=== PATIENT | male | born 1970 | race Hispanic/Latino ===

== ENCOUNTER 2024-03-04 18:17 | Emergency (ER) | payer OTHER, SELFPAY ==
[2024-03-04 18:20] VITALS: BP 89/49
[2024-03-04 18:26] LABS: Glucose - Point of Care 240 mg/dl (70-99)
[2024-03-04 18:32] VITALS: BP 89/49; BMI 45.5
[2024-03-04 18:34] VITALS: BP 98/47
[2024-03-04 18:44] LABS: % Basophils 0.5 % (0-2); % Eosinophils 1.8 % (0-6); % Immature Granulocytes 0.4 % (0-0.5); % Lymphocytes 3.4 % (20.5-51.1); % Monocytes 6.3 % (1.7-9.3); % Neutrophils 87.6 % (42.2-75.2); Absolute Basophils 0.1 10^3/uL (0-0.2); Absolute Eosinophils 0.3 10^3/uL (0-0.7); Absolute Immature Granulocytes 0.1 10^3/uL (0-0.05); Absolute Lymphocytes 0.5 10^3/uL (1.2-3.4); Absolute Neutrophils 13.7 10^3/uL (1.4-6.5); Hematocrit 28.3 % (39.0-52.0); Hemoglobin 9.2 g/dL (13.0-18.0); Mean Corp Hgb Conc. 32.5 g/dL (33.0-37.0); Mean Corpuscular Hgb 29.8 pg (27.0-31.0); Mean Corpuscular Volume 91.6 fL (80.0-94.0); Mean Platelet Volume 9.3 fL (7.4-10.4); Nucleated Red Blood Cells % 0 % (-); Platelet Count 276 10^3/uL (130-400); Red Blood Cell Count 3.09 10^6/uL (4.70-6.10); Red Cell Dist. Width 14.6 % (11.5-14.5); White Blood Cell Count 15.6 10^3/uL (4.8-10.8)
[2024-03-04 19:07] LABS: ALT (SGPT) 18 U/L (0-50); AST (SGOT) 26 U/L (17-59); Albumin 3.3 g/dl (3.5-5.0); Alkaline Phosphatase 126 U/L (38-126); Blood Urea Nitrogen 46 mg/dl (9-20); Calcium 7.7 mg/dl (8.4-10.2); Carbon Dioxide 22 mmol/L (22-30); Chloride 94 mmol/L (98-107); Estimated Creatinine Clearance 18 ml/min; Glucose 240 mg/dl (70-99); Potassium 3.5 mmol/L (3.5-5.1); Sodium 134 mmol/L (135-145); Total Bilirubin 0.8 mg/dl (0.2-1.3); Total Protein 6.9 g/dl (6.3-8.2); eGFR 8.75
[2024-03-04 19:11] VITALS: BP 128/51
--- NOTE | 2024-03-04 19:12 | ED.GENMED ---
History of Present Illness
General
Chief Complaint: Fainting/Passed Out
Source: patient and other (RN Lynn Allen)
Time Seen by Provider: 03/04/24 18:47
Travel History
Have you had any contact with someone who has COVID-19?: No
Do you have any symptoms of coronavirus? Fever > 100 degrees, chills, cough, shortness of breath, sore throat, loss of taste or smell, muscle aches, or headache?: No
History of Present Illness
History of Present Illness:
This patient is a 53-year-old male who presents emergency department after reported syncopal event. According to the RN he spoke to the medics as well as Lynn Addison his nurse, a another resident witnessed patient to be in the dining moralez and had an
episodes where his eyes rolled back and he became limp. There was no specific seizure-like activity reported. Lynn Allen had difficulty getting a blood pressure or pulse ox. Upon EMS arrival, blood pressure was reportedly 70 systolic with a pulse ox
of 85% and a blood sugar 303. Patient regained consciousness without postictal like symptoms. Blood pressure now normalized. Patient denies any preceding symptoms to this event, says he felt perfectly well before it happens, and denies any
complaints at this time. Lynn Denny confirms that his clinical status was baseline and unchanged prior to this event. Patient specifically denies chest pain, shortness of breath, fever, chills, back pain, headache. He does have right arm pain from
the level of the elbow extending to the hand which is chronic in nature.
Past History
Past History
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
ED Past Surgical History: Orthopedic (Right below the knee amp, Left second toe amputation) and Other (Trach, PEG tube but removed)
Social History
Tobacco: Non-smoker
Alcohol: None
Drug: None
Personal: Partner
Living: halfway
Phy Exam
Physical Exam
Physical Exam:
GENERAL: Alert , in no apparent distress
EYE: pupils equal and reactive
NECK: Supple, no significant adenopathy.
ENT: o/p clr, mmm, trach in place without bleeding/drainage.
CARDIAC: Regular rate and rhythm .
LUNGS: Equal breath sounds bilaterally, no acute respiratory distress, no rales/rhonchi, mild wheezing
ABDOMEN: Soft, without focal tenderness, no r/g
NEUROLOGICAL: Alert and oriented, no focal neuro deficits
SKIN: Warm and dry, skin intact. R middle finger with area of dried st exposed, no drainage/crepitus/fluctuance/foul smell. Swelling of finger extending to R hand. No warmth. No ttp of flexor tendon. Held in partial flexion due to swelling
MUSCULOSKELETAL: R bka, L leg in boot, overall well perfused.
PSYCH: Normal and appropriate interaction.
Course
Orders/Labs/Results
Orders:
Orders
03/04/24 18:27
Electrocardiogram (*1) Urgent
Reason for Study: Syncope
03/04/24 18:28
EKG- Treatment ONCE
03/04/24 18:40
Complete Blood Count/With Diff Urgent
Comprehensive Metabolic Panel Urgent
03/04/24 19:15
US Periph Venous UPPER Ext RT Urgent
Comment:
Reason For Exam: swelling
03/04/24 19:20
Troponin I Urgent
03/04/24 21:56
Troponin I Urgent
Abnormal Lab Results
03/04/24 03/04/24
18:25 18:40
WBC 15.6 H 10^3/uL
(4.8-10.8)
RBC 3.09 L 10^6/uL
(4.70-6.10)
Hgb 9.2 L g/dL
(13.0-18.0)
Hct 28.3 L %
(39.0-52.0)
MCHC 32.5 L g/dL
(33.0-37.0)
RDW 14.6 H %
(11.5-14.5)
Abs Immat Gran (auto) 0.1 H 10^3/uL
(0-0.05)
Absolute Neuts (auto) 13.7 H 10^3/uL
(1.4-6.5)
Absolute Lymphs (auto) 0.5 L 10^3/uL
(1.2-3.4)
Absolute Monos (auto) 1.0 H 10^3/uL
(0.1-0.6)
Neutrophils % 87.6 H %
(42.2-75.2)
Lymphocytes % 3.4 L %
(20.5-51.1)
Sodium 134 L mmol/L
(135-145)
Chloride 94 L mmol/L
(98-107)
BUN 46 H mg/dl
(9-20)
Creatinine 6.9 H* mg/dL
(0.7-1.3)
Glucose 240 H mg/dl
(70-99)
Calcium 7.7 L mg/dl
(8.4-10.2)
Albumin 3.3 L g/dl
(3.5-5.0)
POC Glucose 240 H mg/dl
(70-99)
03/04/24 18:40
03/04/24 18:40
Vital Signs
Initial and Last Documented VS:
Initial Vital Signs
BP
89/49
03/04/24 18:20
Last Documented Vital Signs
Temp Pulse Resp BP Pulse Ox
98.5 F 75 17 98/40 92
03/04/24 18:32 03/04/24 22:00 03/04/24 22:00 03/04/24 20:00 03/04/24 22:00
Update Note
Update Note:
Patient presents to the Emergency Department with ___reported syncopal event
Number and Complexity of Problems Addressed at the Encounter
� Chronic conditions affecting care:
� Acute Exacerbation and/or Progression of Chronic Illness:
� Differential Diagnosis includes: But not limited to vasovagal event, ACS, mucous plug, dehydration, etc. etc.
Amount and/or Complexity of Data to be Reviewed and Analyzed
� I performed an independent evaluation of and my interpretation is:
EKG: Read by me, normal sinus rhythm, right bundle, no acute ischemia
CT:
Xrays:
Laboratory Studies: Nonspecific white blood cell count elevation with slightly worsening anemia, troponin flat
Other:
� Review of other/old records reveals: Patient admitted October 2023 with suspicion for GI bleeding, GI consulted, Eliquis essentially resumed.
� Clinical information was obtained by an independent historian:
� Prescriptions/Medications Considered but not given:
� Further testing considered but not performed:
Risk of Complications and/or Morbidity or Mortality of Patient Management
� Social determinants of health affecting care:
� Discussion with other providers (PCP, Hospitalists, Consultants, etc):
� Escalation of care including admission/observation vs risk of discharge considered: 10:29 PM patient resting comfortably. Has been asking nurse when he can go back to facility as he remains asymptomatic here. Unclear exact
etiology of his reported syncopal events however no worrisome findings here to suggest ACS, PE, dissection, etc. May have been related to a mucous plug given nurse did successfully suction here. Pulse ox remains stable, will allow patient to
return to facility.
ED Attending Note
-
Portions of this chart may have been created with voice recognition software.� Occasional wrong word or��sound alike� substitutions may have occurred due to the inherent limitations of voice recognition software.
Discharge Plan
Departure
Patient Disposition: Home (Routine Discharge)
Date of Disposition: 03/04/24
Time of Disposition: 22:30
Patient with high blood pressure during this ER visit?: No
Condition: Good
Discharge Problem:
Syncope
Instructions: Syncope (Fainting) (DC)
Prescriptions:
No Action
atorvastatin 40 mg Tablet
60 mg PO QPM
lidocaine 5 % Cream
1 applic TOPICAL Q8HPRN PRN (Reason: AVF site)
acetaminophen 500 mg Tablet
500 mg PO Q6HPRN MDD 3000 mg PRN (Reason: mild pain/headaches)
carvedilol 3.125 mg Tablet
3.125 mg PO BID
Patient Comments:
03/04/2024, hold for SBP less than 110 or HR less than 50.
levothyroxine 75 mcg Tablet
75 mcg PO DAILY
ascorbic acid (vitamin C) [Vitamin C] 250 mg Tablet
250 mg PO DAILY
bisacodyl [Dulcolax (bisacodyl)] 10 mg Suppository
10 mg FL DAILYPRN PRN (Reason: constipation)
pantoprazole 40 mg Tablet,Delayed Release (Dr/Ec)
40 mg PO DAILY
diphenhydramine HCl 25 mg Capsule
25 mg PO Q8HPRN PRN (Reason: allergies)
docusate sodium 100 mg Capsule
100 mg PO BID
aspirin 81 mg Tablet,Chewable
81 mg PO DAILY
hydroxyzine HCl 25 mg Tablet
25 mg PO [id number] PRN (Reason: itching)
Renal Caps 1 mg Capsule
1 cap PO QPM
sorbitol 70 % Solution
30 ml PO DAILYPRN PRN (Reason: if no BM x 3 days)
chlorhexidine gluconate [Peridex] 0.12 % Mouthwash
15 ml MUCOUS MEMBRANE BID
Patient Comments:
03/04/2024, rinse/spit.
insulin glargine [Lantus Solostar U-100 Insulin] 100 unit/mL (3 mL) Insulin Pen
21 unit SC HS
Patient Comments:
03/04/2024, hold for BS<100.
melatonin 5 mg Tablet
5 mg PO HS
icosapent ethyl [Vascepa] 1 gram Capsule
2 g PO BID
apixaban 2.5 mg Tablet
2.5 mg PO BID
polyethylene glycol 3350 [Miralax] 17 gram Powder In Packet
17 g PO DAILY
acetaminophen 325 mg Tablet
650 mg PO Q6HPRN MDD 3000 mg PRN (Reason: mild pain/temp>100.4)
midodrine 2.5 mg Tablet
2.5 mg PO Q12H PRN (Reason: sbp<90)
fluoxetine 40 mg Capsule
40 mg PO DAILY
Rx Instructions:
03/04/2024, take with 10 mg for a total of 50 mg.
latanoprost 0.005 % Drops
1 drp LEFT EYE HS
bupropion HCl [Wellbutrin SR] 100 mg Tablet Sustained-Release 12 Hr
100 mg PO Q48H
lorazepam 0.5 mg Tablet
0.5 mg PO BID
insulin aspart U-100 [Novolog U-100 Insulin aspart] 100 unit/mL Solution
0 sliding scale dose SC DIRECTED
Rx Instructions:
03/04/2024, if 151-200 = 2 units; 201-250 = 4 units; 251-300 = 6 units; 301-350 = 8 units; 351-400 = (does not specify on [place] paperwork); call MD if BS>450 or <70.
ferrous sulfate 325 mg (65 mg iron) Tablet
325 mg PO DAILY
fluoxetine 10 mg Capsule
10 mg PO DAILY
Rx Instructions:
03/04/2024, take with 40 mg for a total of 50 mg.
guaifenesin 100 mg/5 mL Syrup
200 mg PO Q4H PRN (Reason: congestion)
Artificial Tears (PF) Dropperette
1 drp BOTH EYES Q8HPRN PRN (Reason: dry eyes)
Referrals:
Galdino Hurley, DO [Family Provider] -
Activity Restrictions/Additional Instructions:
IF YOU DEVELOP CHEST PAIN, TROUBLE BREATHING, FEVER, VOMITING, DIZZINESS, OR OTHER WORRISOME SIGNS, GO TO THE ER IMMEDIATELy!
Interventions
Interventions:
*Risk Screen - Suicide Last Done: 03/04/24 18:32
*General Assessment Last Done: 03/04/24 18:32
*Neglect/Abuse Screening Last Done: 03/04/24 18:32
ED- Fall Risk Assessment Last Done: 03/04/24 19:23
*ED COVID-19 Vaccine History Last Done: 03/04/24 18:32
ED- Cardiac Assessment Last Done: 03/04/24 19:23
ED- Neurological Assessment Last Done: 03/04/24 19:23
Discharge Date and Time
Print Language: CAMEROONIAN
--- NOTE | 2024-03-04 19:32 | EDRN ---
Pt said 'I was eating then opened my eyes and I was here.' Pt complains of pain R elbow to his R hand. Pt says he injured his R 3rd finger while closing a door 2 weeks ago and he continues to have pain. Pt has an inactive dialysis catheter R
upper arm. Pt confirmed he gets dialysis M-W- in his L arm dialysis catheter. Pt does not make urine. Pt denies headache, cp, sob, abd pain, n/v, fever/chills.
[2024-03-04 19:55] LABS: Troponin I 0.019 ng/ml
[2024-03-04 20:00] VITALS: BP 98/40
[2024-03-04 22:00] VITALS: BP 97/42
[2024-03-04 22:26] LABS: Troponin I 0.023 ng/ml
[2024-03-05] VITALS: BP 108/54
--- NOTE | 2024-03-05 00:06 | EDRN ---
Report called to Suzanne at [facility] - d/c instructions were printed in slovak by Dr Alcala. This RN printed them in australian also.
--- NOTE | 2024-03-05 02:55 | EDRN ---
0253: Pt slept through IV removals and moving him over to Romed stretcher. Pt's cell phone placed in belongings bag along with coverings from pt's stump. Emergency trach kit that was sent with pt returned with pt. Pt's prosthesis placed on
stretcher by EMT.
== END 2024-03-05 02:53 | disposition home or self-care (01) ==
LOC: EMR 18:17
PROVIDERS: EMERGENCY PHYSICIAN Emergency Medicine; FAMILY PHYSICIAN Internal Medicine
DX: R55 Syncope and collapse (principal); M25.521 Pain in right elbow; M25.541 Pain in joints of right hand; M79.89 Other specified soft tissue disorders; I12.0 Hypertensive chronic kidney disease with stage 5 chronic kidney disease or end stage renal disease; N18.6 End stage renal disease; Z99.2 Dependence on renal dialysis; E11.22 Type 2 diabetes mellitus with diabetic chronic kidney disease; K21.9 Gastro-esophageal reflux disease without esophagitis; E03.9 Hypothyroidism, unspecified; F32.A Depression, unspecified; H54.7 Unspecified visual loss; Z86.73 Personal history of transient ischemic attack (TIA), and cerebral infarction without residual deficits; Z79.82 Long term (current) use of aspirin; Z89.511 Acquired absence of right leg below knee; Z88.5 Allergy status to narcotic agent; Z88.0 Allergy status to penicillin; Z88.7 Allergy status to serum and vaccine; Z88.8 Allergy status to other drugs, medicaments and biological substances
CPT/HCPCS: 99285; 80053; 82962; 84484; 85025; 93005; 93971

== ENCOUNTER 2024-03-05 21:16 | Inpatient (IN) | payer OTHER, SELFPAY ==
[2024-03-05] VITALS (13 sets, daily range): BP systolic 56–114; BP diastolic 25–69; BMI 43.7; BMI 41.8
[2024-03-05 17:57] LABS: Glucose - Point of Care 179 mg/dl (70-99)
--- NOTE | 2024-03-05 18:19 | ED.GENMED ---
History of Present Illness
General
Chief Complaint: Fall
Source: patient, records, previous radiology exam and previous hospital records
Exam Limitations: none
Time Seen by Provider: 03/05/24 17:58
Nursing documentation reviewed up to this point in time: agreed with except (Patient denies chest pain to me)
Travel History
Have you had any contact with someone who has COVID-19?: Unable to Answer
Do you have any symptoms of coronavirus? Fever > 100 degrees, chills, cough, shortness of breath, sore throat, loss of taste or smell, muscle aches, or headache?: Unable to Answer
History of Present Illness
History of Present Illness:
53-year-old male apparently was here yesterday for evaluation he has end-stage renal disease, dialyzed Tuesday, went to dialysis today slumped in his chair, brought here for evaluation when I evaluated the patient he is lying supine
speaking on his cell phone in no acute distress tells me he has a headache he possibly struck his head yesterday he denies chest pain this is a correction from the nurses note denies fever denies shortness of breath shows me his dialysis graft in
his left arm which was used today
Yesterday apparently had an interosseous line with a syncopal event and was ultimately discharged home
Past History
Past History
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
ED Past Surgical History: Orthopedic (Right below the knee amp, Left second toe amputation) and Other (Trach, PEG tube but removed)
Social History
Tobacco: Non-smoker
Alcohol: None
Drug: None
Personal: Partner
Living: intermediate
Phy Exam
Physical Exam
Physical Exam:
Physical Exam
General: Nontoxic male speaking on a soft
Neck: No tongue bite
Heart: Regular
Lungs: no acute respiratory distress. clear bilaterally
Neuro: alert and oriented. no focal neurological deficits
Skin: no rash
Psychiatric: well kept. interactive and cooperative
Extremities: no edema.
Course
Orders/Labs/Results
Orders:
Orders
03/05/24 Dinner
Regular
At Your Request: Full Participation
03/05/24 17:40
Electrocardiogram (*1) Urgent
Reason for Study: Other
Other Reason for Exam: dizziness
EKG- Treatment ONCE
03/05/24 18:12
Cardiac Monitoring- Treatment ONCE
Rectal Temp- Treatment ONCE
CR Chest - 2 Views Urgent
Comment:
Reason For Exam: fall
03/05/24 18:13
CT Cervical Spine W/o Iv Contr Urgent
Comment:
Reason For Exam: fall
CT Head W/o Iv Contrast Urgent
Comment:
Reason For Exam: fall headache
03/05/24 18:46
Electrocardiogram (*1) Urgent
Reason for Study: Other
Other Reason for Exam: sepsis
Acetaminophen [Tylenol] 1,000 mg PO NOW STA
03/05/24 18:49
Complete Blood Count/No Diff Urgent
Comprehensive Metabolic Panel Urgent
Troponin I Urgent
Blood Culture Q30M
DULCE Source: Blood/Venous
Specimen Description:
Blood Culture Q30M
DULCE Source: Blood/Venous
Specimen Description:
03/05/24 18:50
COVID-19 Antigen Urgent
Source: Nasal Swab
Lactic Acid Q4H
Comment: CANCEL 2nd LACTIC ACID IF 1st LACTIC ACID IS LESS THAN 2
Influenza A+B Rapid Molecular Urgent
DULCE Source: Nasal Swab
Specimen Description:
03/05/24 19:20
0.9% Sodium Chloride 1000 ml [Nss] 1,000 ml IV BOLUS
03/05/24 20:00
VANCOMYCIN Pharmacy to Dose [VANCOCIN Pharmacy to Dose] 1 each Pharmacy To Prepare [Call Pharmacy To Prepare] 0 ml IV PER PROTOCOL
03/05/24 20:42
Admit/Transfer Patient As Directed
Co-Sign Provider:
Level of Care: Inpatient admission
Assign to:: IMU- Intermediate Care
Physician / Group: ziggy
Diagnosis: sepsis
Reason for Hospitalization: sepsis
Expected length of stay greater than two midnights?: Yes
ELOS- Estimated Length of Stay in days: 2
I certify the patient meets the requirements for IP care: Yes
Code Status As Directed
Resuscitation Status: Full Code
03/05/24 20:49
0.9% Sodium Chloride 500 ml [Nss] 500 ml IV BOLUS
03/05/24 20:50
Potassium Chloride [KCl] 40 meq PO NOW STA
03/05/24 22:08
Acetaminophen [Tylenol] 500 mg PO Q6HPRN PRN
Acetaminophen [Tylenol] 650 mg PO Q6HPRN PRN
Bisacodyl [Dulcolax] 10 mg RECTAL DAILYPRN PRN
Cefepime HCl [Maxipime] 1,000 mg IV Q12H
Dextrose 50%-Water [Dextrose 50% Syringe] 12.5 grams IV [id number] PRN
Diphenhydramine [Benadryl] 25 mg PO Q8HPRN PRN
Glucagon [GlucaGen] 1 mg IM PRN PRN
HydrOXYZINE [Atarax] 25 mg PO [id number] PRN
Latanoprost [Xalatan Ophthalmic Solution] 1 drop LEFT EYE HS
Melatonin 5 mg PO HS
Sorbitol Solution [Sorbitol 70% Solution] 30 ml PO DAILYPRN PRN
VANCOMYCIN Pharmacy to Dose [VANCOCIN Pharmacy to Dose] 1 each Pharmacy To Prepare [Call Pharmacy To Prepare] 0 ml IV PER PROTOCOL
dextran 70-hypromellose [Artificial Tears (PF)] 1 drop BOTH EYES Q8HPRN PRN
guaifenesin 200 mg PO Q4H PRN
insulin glargine [Lantus Solostar U-100 Insulin] 21 unit SC HS
lidocaine 1 applic TOPICAL Q8HPRN PRN
03/05/24 22:08
VTE Contraindication Routine
VTE Mechanical Device Contraindication: Medical Contraindication
Pharmocologic Contraindication: Medical Contraindication
Activity As Directed
Activity Level: As Tolerated
Bedside Glucose Monitoring As Directed
Frequency: AC&HS
Additional Instructions:: Change to q6h if pt on TPN, tube feeding or not eating
Vital Signs As Directed
Frequency: Per unit guidelines
03/05/24 22:13
Midodrine [ProAmatine] 2.5 mg PO [id number] PRN
03/05/24 23:00
Lactic Acid Q4H
Comment: CANCEL 2nd LACTIC ACID IF 1st LACTIC ACID IS LESS THAN 2
03/06/24 06:00
Complete Blood Count/With Diff IN AM
Comprehensive Metabolic Panel IN AM
Glycohemoglobin (HgbA1c) IN AM
Levothyroxine [Synthroid] 75 mcg PO DAILY @ 0600
03/06/24 07:30
Insulin Aspart Corrective Low [Novolog Flexpen-Low Resistance] See Protocol SC AC
03/06/24 08:00
Apixaban [Eliquis] 2.5 mg PO BID
Ascorbic Acid [Vitamin C] 250 mg PO DAILY
Aspirin Chewable [Low Strength Aspirin] 81 mg PO DAILY
Bupropion(12Hr)Sustain Release [WELLBUTRIN SR (12 hour sustained release)] 100 mg PO Q48H
Chlorhexidine Oral Rinse 0.12% [Peridex 0.12% Oral Rinse] 15 ml PO BID
Docusate Sodium [Colace] 100 mg PO BID
Ferrous Sulfate [Feosol] 325 mg PO DAILY
Fluoxetine HCl [Prozac] 10 mg PO DAILY
Lorazepam [Ativan] 0.5 mg PO BID
Pantoprazole [Protonix] 40 mg PO DAILY
Polyethylene Glycol Powder [Miralax] 17 grams PO DAILY
fluoxetine 40 mg PO DAILY
icosapent ethyl [Vascepa] 2 grams PO BID
03/06/24 18:00
Atorvastatin [Lipitor] 60 mg PO QPM
Renal Cap [Nephrocap] 1 capsule PO QPM
Abnormal Lab Results
03/05/24 03/05/24
17:55 18:49
WBC 17.4 H 10^3/uL
(4.8-10.8)
RBC 3.15 L 10^6/uL
(4.70-6.10)
Hgb 9.5 L g/dL
(13.0-18.0)
Hct 29.6 L %
(39.0-52.0)
MCHC 32.1 L g/dL
(33.0-37.0)
RDW 14.6 H %
(11.5-14.5)
Potassium 3.3 L mmol/L
(3.5-5.1)
Chloride 93 L mmol/L
(98-107)
BUN 29 H mg/dl
(9-20)
Creatinine 4.9 H* mg/dL
(0.7-1.3)
Glucose 188 H mg/dl
(70-99)
Alkaline Phosphatase 140 H U/L
(38-126)
POC Glucose 179 H mg/dl
(70-99)
03/05/24 18:49
03/05/24 18:49
Vital Signs
Initial and Last Documented VS:
Initial Vital Signs
Pulse Resp
87 16
03/05/24 17:37 03/05/24 17:37
Last Documented Vital Signs
Temp Pulse Resp BP
101.6 F H 79 18 61/31
03/05/24 18:35 03/05/24 21:15 03/05/24 21:15 03/05/24 21:00
*Critical Care Note
Total Time (30-74mins, 75-104mins- exclusive of procedures): 30
Update Note
Update Note:
7 PM white count noted be febrile chest x-ray viral swabs are pending CT of the head is pending
754 CT of the head C-spine chest x-ray reports noted transient low blood pressure in the setting of fever unclear if this represented a central blood pressure of abdominal on his arm peripherally there is risk, nonetheless this is second visit here
he is febrile possibly has syncope yesterday and today, believe will be prudent to start antibiotics and admit him as high risk for bacteremia is in end-stage renal disease patient
ED Attending Note
-
Portions of this chart may have been created with voice recognition software.� Occasional wrong word or��sound alike� substitutions may have occurred due to the inherent limitations of voice recognition software.
Discharge Plan
Departure
Patient Disposition: Admit
Date of Disposition: 03/05/24
Time of Disposition: 19:55
Admit to: Telemetry
Presentation/result/management discussed w/ accepting MD/DO: Hospitalist
Patient with high blood pressure during this ER visit?: No
Condition: Fair
Covid-19: Negative COVID-19
Discharge Problem:
Bacteremia
Interventions
Interventions:
*Risk Screen - Suicide Last Done: 03/05/24 17:52
*General Assessment Last Done: 03/05/24 17:52
*Neglect/Abuse Screening Last Done: 03/05/24 17:52
ED- Fall Risk Assessment Last Done: 03/05/24 22:18
*ED COVID-19 Vaccine History Last Done: 03/05/24 17:33
*Nursing Disposition Last Done: 03/05/24 22:18
ED-Musculoskeletal Assessment Last Done: 03/05/24 22:18
ED- Neurological Assessment Last Done: 03/05/24 17:41
Discharge Date and Time
Discharge Date/Time: 03/05/24 22:19
[2024-03-05] MEDS: TYLENOL 1000 MG PO (18:56)
[2024-03-05 18:59] LABS: Hematocrit 29.6 % (39.0-52.0); Hemoglobin 9.5 g/dL (13.0-18.0); Mean Corp Hgb Conc. 32.1 g/dL (33.0-37.0); Mean Corpuscular Hgb 30.2 pg (27.0-31.0); Mean Platelet Volume 9.7 fL (7.4-10.4); Platelet Count 275 10^3/uL (130-400); Red Blood Cell Count 3.15 10^6/uL (4.70-6.10); Red Cell Dist. Width 14.6 % (11.5-14.5); White Blood Cell Count 17.4 10^3/uL (4.8-10.8)
[2024-03-05 19:10] LABS: Lactic Acid 1.9 mmol/L (0.7-2.0)
[2024-03-05 19:19] LABS: ALT (SGPT) 18 U/L (0-50); AST (SGOT) 24 U/L (17-59); Albumin 3.5 g/dl (3.5-5.0); Alkaline Phosphatase 140 U/L (38-126); Blood Urea Nitrogen 29 mg/dl (9-20); Calcium 8.4 mg/dl (8.4-10.2); Carbon Dioxide 25 mmol/L (22-30); Chloride 93 mmol/L (98-107); Estimated Creatinine Clearance 25 ml/min; Glucose 188 mg/dl (70-99); Potassium 3.3 mmol/L (3.5-5.1); Sodium 136 mmol/L (135-145); Total Bilirubin 0.9 mg/dl (0.2-1.3); Total Protein 7.5 g/dl (6.3-8.2)
[2024-03-05 19:22] LABS: Troponin I 0.028 ng/ml
[2024-03-05 19:22] LABS: COVID-19 Antigen Negative (Negative)
[2024-03-05] MEDS: NSS 1000 IV (20:12)
--- NOTE | 2024-03-05 20:42 | EDRN ---
Blood pressure readings are low for this patient, Dr. June aware. Unsure if these reading are accurate. Patient is mentating well. Only able to use right lower forearm below the IV site for blood pressure readings.
--- NOTE | 2024-03-05 20:51 | HPS.HSE ---
Family Physician
-
Family Physician: Galdino Hurley, DO
Chief Complaint
-
syncope,weakness
History of Present Illness
53-year-old male past medical history of ESRD on hemodialysis Tuesday, Tuesday, Tuesday, diabetes, PAD status post right BKA, hypertension, GERD, prior cardiac arrest, prior PEG tube, obstructive sleep apnea, DVT, hypothyroidism, insomnia,
depression, obesity, chronic constipation, chronic anemia, presenting for fall. Patient went to dialysis today and slumped in his chair and was brought here for evaluation. Patient complains of headache because he possibly struck his head
yesterday. He denied fever, shortness of breath
He came to the emergency room yesterday for syncopal episode. While in the jail he had an episode where his eyes rolled back and he became limp. No specific seizure-like activity reported. Blood pressure was 70 systolic with pulse ox of
85% blood sugar 303. Patient regained consciousness without postictal symptoms. As per documentation patient also complained of chest pain at the facility however he denies any chest pain currently.
Patient states that he does not make urine. He denies any shortness of breath or cough or chest pain. He denies any nausea vomiting or diarrhea. He denies any history of swallowing dysfunction
He states that 2 weeks ago he jammed his finger in a locker and the nail came off and he has significant pain.
He denies smoking or alcohol use.
Medical History
Past Medical History
Past Medical History: Reports Other (ESRD on hemodialysis Tuesday, Tuesday, Tuesday, diabetes, PAD status post right BKA, hypertension, GERD, prior cardiac arrest tracheostomy, prior PEG tube, obstructive sleep apnea, DVT, hypothyroidism, insomnia,
depression, obesity, chronic constipation, chronic anemia)
Past Surgical History: Reports Other (Left upper extremity AV fistula, prior tracheostomy 2022 , PEG tube insertion May 2023,History right BKA, left second toe removal secondary to gangrene))
Social History
Tobacco: Non-smoker
Alcohol: None
Drug: None
Family History
Family History: Not pertinent
Allergies / Home Medications
Allergies reflects when Allergies were last updated in [employer].
Home Medications with original date entered in [employer]
Allergy/Medication List:
Allergies
Allergy/AdvReac Type Severity Reaction Status Date / Time
iodine Allergy Unknown Verified 03/05/24 17:49
morphine Allergy Unknown Verified 03/05/24 17:49
Penicillins Allergy Unknown Verified 03/05/24 17:49
tetanus and diphtheria Allergy Unknown Verified 03/05/24 17:49
toxoids
Home Medications
acetaminophen 500 mg tablet 500 mg PO Q6HPRN PRN mild pain/headaches 07/22/23
apixaban 2.5 mg tablet 2.5 mg PO BID Blood Clot Prevention/Tx 07/22/23
ascorbic acid (vitamin C) 250 mg tablet (Vitamin C) 250 mg PO DAILY Supplement 07/22/23
aspirin 81 mg chewable tablet 81 mg PO DAILY Blood Clot Prevention/Tx 07/22/23
atorvastatin 40 mg tablet 60 mg PO QPM High Cholesterol 07/22/23
bisacodyl 10 mg rectal suppository (Dulcolax (bisacodyl)) 10 mg [place] DAILYPRN PRN constipation 07/22/23
carvedilol 3.125 mg tablet 3.125 mg PO BID Heart Disease/Condition 07/22/23
chlorhexidine gluconate 0.12 % mouthwash (Peridex) 15 ml mucous membrane BID Infection 07/22/23
diphenhydramine HCl 25 mg capsule 25 mg PO Q8HPRN PRN allergies 07/22/23
docusate sodium 100 mg capsule 100 mg PO BID Constipation 07/22/23
hydroxyzine HCl 25 mg tablet 25 mg PO [id number] PRN itching 07/22/23
icosapent ethyl 1 gram capsule (Vascepa) 2 g PO BID Heart Disease/Condition 07/22/23
insulin glargine 100 unit/mL (3 mL) subcutaneous pen (Lantus Solostar U-100 Insulin) 21 unit SC HS Diabetes 07/22/23
levothyroxine 75 mcg tablet 75 mcg PO DAILY Thyroid 07/22/23
lidocaine 5 % topical cream 1 applic topical Q8HPRN PRN AVF site 07/22/23
melatonin 5 mg tablet 5 mg PO HS Sleep 07/22/23
pantoprazole 40 mg tablet,delayed release 40 mg PO DAILY Gastrointestinal Issue 07/22/23
sorbitol 70 % solution 30 ml PO DAILYPRN PRN if no BM x 3 days 07/22/23
vitamin B complex and vitamin C no.20-folic acid 1 mg capsule (Renal Caps) 1 cap PO QPM Supplement 07/22/23
polyethylene glycol 3350 17 gram oral powder packet (Miralax) 17 g PO DAILY constipation 09/21/23
acetaminophen 325 mg tablet 650 mg PO Q6HPRN PRN mild pain/temp>100.4 11/02/23
midodrine 2.5 mg tablet 2.5 mg PO Q12H PRN sbp<90 11/05/23
bupropion HCl 100 mg tablet,12 hr sustained-release (Wellbutrin SR) 100 mg PO Q48H 03/04/24
dextran 70-hypromellose eye drops in a dropperette (Artificial Tears (PF) drops in a dropperette) 1 drp BOTH EYES Q8HPRN PRN dry eyes 03/04/24
ferrous sulfate 325 mg (65 mg iron) tablet 325 mg PO DAILY 03/04/24
fluoxetine 10 mg capsule 10 mg PO DAILY 03/04/24
fluoxetine 40 mg capsule 40 mg PO DAILY 03/04/24
guaifenesin 100 mg/5 mL oral syrup 200 mg PO Q4H PRN congestion 03/04/24
insulin aspart U-100 100 unit/mL subcutaneous solution (Novolog U-100 Insulin aspart) 0 sliding scale dose SC DIRECTED 03/04/24
latanoprost 0.005 % eye drops 1 drp LEFT EYE HS 03/04/24
lorazepam 0.5 mg tablet 0.5 mg PO BID 03/04/24
Review of Systems
-
History Source: Patient
A 12 point ROS was completed and negative except as noted: Yes
Constitutional: Reports No Symptoms
EENT: Reports No Symptoms
Respiratory: Reports No Symptoms
Cardiac: Reports No Symptoms
Abdomen/GI: Reports No Symptoms
: Reports No Symptoms
Musculoskeletal: Reports No Symptoms
Skin: Reports No Symptoms
Neurological: Reports See HPI
Endocrine: Reports No Symptoms
Hematologic/Lymphatic: Reports No Symptoms
Psych: Reports No Symptoms
Physical Exam
Vital Signs
Vital Signs
Temp Pulse Resp BP
101.6 F H 82 15 60/32
03/05/24 18:35 03/05/24 20:31 03/05/24 20:31 03/05/24 20:31
Physical Exam
General: Well Developed, Well Nourished and No Apparent Distress
HEENT: NormoCephalic, Moist mucous membranes and Atraumatic
Respiratory: Clear
Cardiac: S1/S2 and Regular Rhythm; No Murmur or Rub
GI: Soft, Non Tender, Non Distended and Normal Bowel Sounds; No Organomegaly
Rectal: Deferred by Provider
Musculoskeletal: No Clubbing, No Cyanosis and No Edema
Skin: No Rash
Neuro: Nonfocal/grossly intact
Laboratory Results
-
03/05/24 18:49
03/05/24 18:49
Laboratory Results
Lactic Acid 1.9 mmol/L (0.7-2.0) 03/05/24 18:50
Total Bilirubin 0.9 mg/dl (0.2-1.3) 03/05/24 18:49
AST 24 U/L (17-59) 03/05/24 18:49
ALT 18 U/L (0-50) 03/05/24 18:49
Alkaline Phosphatase 140 U/L (38-126) H 03/05/24 18:49
Troponin I 0.028 ng/ml 03/05/24 18:49
Data Reviewed
-
Lab Data: Labs Reviewed by me
Old Records: Reviewed
Impression/Plan
-
IMPRESSION:
PLAN:
# Sepsis (fever, leukocytosis, hypotension) unclear source likely due to right third finger paronychia,
# Paronychia of right third finger due to injury
-COVID and influenza negative
-Chest x-ray negative
-Check blood cultures
-IV fluid bolus
-Vancomycin/cefepime
-Hold Coreg
# Syncopal episode yesterday secondary to hypotension/sepsis
-CT head and C-spine shows no acute abnormalities
# Hypokalemia
-Replete potassium
ESRD on hemodialysis Tuesday, Tuesday, Tuesday
-Continue midodrine
-Nephrology consulted
Type 2 diabetes
-Continue Lantus 21 units
-insulin sliding scale
PAD status post right BKA
-Continue aspirin, statin
Hyperlipidemia
-Continue Vascepa
Essential hypertension
-Hold Coreg due to hypotension
GERD
-Continue Protonix
History of prior cardiac arrest
Current tracheostomy
Prior PEG tube
Obstructive sleep apnea
History of DVT
-Continue Eliquis
Hypothyroidism
-Continue levothyroxine
Anxiety/depression
-Continue bupropion, fluoxetine, Ativan
Insomnia
Obesity
Chronic anemia
-Continue iron sulfate
Chronic constipation
-Continue bowel regimen
Full code
DVT prophylaxis�Eliquis
Regular diet
[2024-03-05] MEDS: NSS 500 IV (21:24)
[2024-03-05] MEDS: KCL 40 MEQ PO (21:24)
--- NOTE | 2024-03-05 22:51 | PTCARENOTE ---
Pt receives dialysis MWF. Pt had dialysis today. Pt is AAO. Pt had softer pressures in the ED. Per ED RN, pressures are not believed to be accurate. Pt asymptomatic. No c/o light headedness, changes in vision, changes in mentation Pt received to
unit. Pts blood pressure cuff moved to left calf and pressures reading of 114/49. BUREAU CHIEF made aware of assessment findings.
--- NOTE | 2024-03-05 22:56 | PHA.VAN.IN ---
Assessment
- Assessment
Renal Function: Patient has ESRD, on chronic Hemodialysis
Hemodialysis Schedule: MWF
Concomitant Antimicrobials: CEFEPIME
- Previous Dosing Experience
Previous Regimen: NONE
Plan
- Plan
Initial / Loading Dose: 1500MG
Maintenance Regimen: DOSING BY RANDOM LEVEL
Monitoring: RANDOM VANCOMYCIN LEVEL 03/06/24 AM
Pharmacokinetics Vancomycin I
- -
Patient Age: 53
Patient Sex: Male
Vancomycin Day #: 1
Requesting Provider: INOCENCIO
Pertinent Antimicrobial Allergies:
Allergies
Penicillins Allergy (Verified 03/05/24 17:49)
Unknown
Height / Weight:
Height 5 ft 11 in
Actual Weight 136 kg
Pertinent Past Medical History: DM;ESRD
- Vital Signs / Lab Results
Temp Pulse Resp BP
99.3 F 79 18 61/31
03/05/24 22:19 03/05/24 21:15 03/05/24 21:15 03/05/24 21:00
Lab Results - Hematology
03/05/24
18:49
WBC 17.4 H
Lab Results - Chemistry
03/05/24
18:49
BUN 29 H
Creatinine 4.9 H*
Estimated Creat Clear 25
Albumin 3.5
03/05/24
18:50
Lactic Acid 1.9
Microbiology Results
03/05/24 18:50 Influenza Types A & B ([facility]) - Final
Nasal Swab Negative for Influenza A & B, NAAT
Negative results must be combined with clinical observations
and patient history.
Nucleic Acid Amplification test (NAAT)performed on the
[employer] platform.
[2024-03-05 23:20] LABS: Glucose - Point of Care 161 mg/dl (70-99)
[2024-03-05] MEDS: MAXIPIME 1000 MG IV (23:35)
[2024-03-05] MEDS: XALATAN OPHTHALMIC SOLUTION 1 DROP LEFT EYE (23:36)
[2024-03-05] MEDS: STERILE WATER FOR INJECTION 10 ML IV (23:36)
[2024-03-05] MEDS: MELATONIN 5 MG PO (23:36)
[2024-03-05] MEDS: LANTUS 0.209999999999999992 UNITS SC (23:37)
[2024-03-05] MEDS: VANCOCIN 300 MG IV (23:38)
[2024-03-05] MEDS: VANCOCIN 300 ML IV (23:38)
[2024-03-06] VITALS (12 sets, daily range): BP systolic 93–152; BP diastolic 40–108; BMI 42.2
--- NOTE | 2024-03-06 01:15 | PTCARENOTE ---
Pt received from ED RN. Pt primarily Malagasy speaking, interoperator service used for admission questions. Pt with R ASHIA, Pt has prosthetic at bedside. skin of amputation clean dry and intact. Wearing left boot. Pt uses assistive lift at LTC. Pt
with tracheostomy, size 6.0 inner canula, using trach collar. Respiratory placed Pt on 5L 02 with 28% oxygen. Pt satting 95%, respirations unlabored, Pt with frequent moist cough. Suctioning at bedside. Pt glucose 161, Pt given 21 units of ordered
lantus. Call vincent in reach, see nursing shift assessment for full head to toe.
[2024-03-06 04:30] LABS: % Basophils 0.7 % (0-2); % Eosinophils 2.5 % (0-6); % Immature Granulocytes 0.4 % (0-0.5); % Lymphocytes 5.1 % (20.5-51.1); % Monocytes 8.3 % (1.7-9.3); Absolute Basophils 0.1 10^3/uL (0-0.2); Absolute Eosinophils 0.4 10^3/uL (0-0.7); Absolute Immature Granulocytes 0.1 10^3/uL (0-0.05); Absolute Lymphocytes 0.8 10^3/uL (1.2-3.4); Absolute Monocytes 1.2 10^3/uL (0.1-0.6); Absolute Neutrophils 12.3 10^3/uL (1.4-6.5); Hematocrit 28.5 % (39.0-52.0); Hemoglobin 8.9 g/dL (13.0-18.0); Mean Corp Hgb Conc. 31.2 g/dL (33.0-37.0); Mean Corpuscular Hgb 29.5 pg (27.0-31.0); Mean Corpuscular Volume 94.4 fL (80.0-94.0); Mean Platelet Volume 9.8 fL (7.4-10.4); Nucleated Red Blood Cells % 0 % (-); Platelet Count 287 10^3/uL (130-400); Red Blood Cell Count 3.02 10^6/uL (4.70-6.10); Red Cell Dist. Width 14.6 % (11.5-14.5); White Blood Cell Count 14.8 10^3/uL (4.8-10.8)
--- NOTE | 2024-03-06 04:47 | PTCARENOTE ---
pt with multiple wounds present on admission. wound care provided. see wound care intervention for full detail.
[2024-03-06 04:53] LABS: Vancomycin Random 17.6 ug/ml
[2024-03-06 05:06] LABS: ALT (SGPT) 15 U/L (0-50); AST (SGOT) 22 U/L (17-59); Albumin 3.2 g/dl (3.5-5.0); Alkaline Phosphatase 129 U/L (38-126); Blood Urea Nitrogen 33 mg/dl (9-20); Carbon Dioxide 22 mmol/L (22-30); Chloride 97 mmol/L (98-107); Estimated Creatinine Clearance 23 ml/min; Glucose 149 mg/dl (70-99); Sodium 138 mmol/L (135-145); Total Bilirubin 0.8 mg/dl (0.2-1.3); Total Protein 6.8 g/dl (6.3-8.2); eGFR 12.29
[2024-03-06] MEDS: SYNTHROID 75 MCG PO (06:32)
--- NOTE | 2024-03-06 07:57 | W.PN.HOSP.TC ---
Today's Communication/Plan
-
Vanc/Cefepime
Ortho Consult
Hold Eliquis until surgery Eval
Assessment / Plan
Assessment / Plan
53-year-old male past medical history of ESRD on hemodialysis Tuesday, Tuesday, Tuesday, diabetes, PAD status post right BKA, hypertension, GERD, prior cardiac arrest, prior PEG tube, obstructive sleep apnea, DVT, hypothyroidism, insomnia,
depression, obesity, chronic constipation, chronic anemia, presenting for weakness while seen at HD. He had an ER visit day prior for syncope
HEAD CT
CERVICAL SPINE CT
IMPRESSION:
1. No acute intracranial abnormality noted.
2. No acute fracture or subluxation of the cervical spine.
CXR
03/05/24
IMPRESSION:
No acute cardiopulmonary process.
PLAN:
# Sepsis (fever, leukocytosis, hypotension) unclear source likely due to right third finger paronychia,
# concern for tendinitis right middle finger
-COVID and influenza negative, Chest x-ray negative
-Check blood cultures
-Vancomycin/cefepime
-Hold Coreg
-Ortho consult
# Syncopal episode yesterday secondary to hypotension/sepsis
-CT head and C-spine shows no acute abnormalities
-Trop now negative x 3
# Hypokalemia
-Replete potassium
ESRD on hemodialysis Tuesday, Tuesday, Tuesday
-Continue midodrine
-Nephrology consulted
Type 2 diabetes
-Continue Lantus 21 units
-insulin sliding scale
PAD status post right BKA
-Continue aspirin, statin
Hyperlipidemia
-Continue Vascepa
Essential hypertension
-Hold Coreg due to hypotension
GERD
-Continue Protonix
History of prior cardiac arrest
Current tracheostomy
Prior PEG tube
Obstructive sleep apnea
History of DVT
-Continue Eliquis
Hypothyroidism
-Continue levothyroxine
Anxiety/depression
-Continue bupropion, fluoxetine, Ativan
Insomnia
Obesity
Chronic anemia
-Continue iron sulfate
Chronic constipation
-Continue bowel regimen
Full code
DVT prophylaxis�Eliquis
Regular diet
Anticipated Discharge: > 48 hours
Subjective/Interval History
-
Date of Service: March 06, 2024
pain right middle finger x 2 weeks
today he states feeling a little better than yesterday
Objective Data
-
Labs:
Laboratory Results
03/06/24
04:17
WBC 14.8 H
Hgb 8.9 L
Hct 28.5 L
Plt Count 287
Sodium 138
Potassium 4.0
Chloride 97 L
Carbon Dioxide 22
BUN 33 H
Creatinine 5.2 H*
Glucose 149 H
Calcium 8.0 L
Total Bilirubin 0.8
AST 22
ALT 15
Alkaline Phosphatase 129 H
Vital Signs:
Vital Signs
Temp Pulse Resp BP Pulse Ox
99.2 F 78 17 117/45 95
03/06/24 03:20 03/06/24 06:00 03/06/24 06:00 03/06/24 06:00 03/06/24 06:00
Review of Systems
-
History Source: Patient
All other systems: Reviewed and negative
Physical Exam
-
General: No Apparent Distress
HEENT: Normocephalic, Atraumatic, Moist Mucous Membranes and Tracheostomy Collar
Respiratory: Clear to Auscultation
Cardiac: Regular Rhythm and S1/S2; Negative Murmur, Rub or Gallop
GI: Soft, Nontender, Nondistended, Normal Bowel Sounds and Peg Tube; Negative Organomegaly
Rectal: Deferred by Provider
Musculoskeletal: Other (right middle finger with necrotic nail and significant swelling; cannot extend finger; pain extending towards dorsal surface hand )
Skin: Negative Rash
Neuro: Awake, Alert and Nonfocal/Grossly Intact
Psych: Calm
Data Reviewed
-
Diagnostic Radiology: Report Reviewed by me
Labs: Labs Reviewed by me
[2024-03-06 08:12] LABS: Glucose - Point of Care 166 mg/dl (70-99)
[2024-03-06] MEDS: FEOSOL PO ×2 (08:21→08:32)
[2024-03-06] MEDS: WELLBUTRIN SR (12 hour sustained release) PO ×2 (08:21→08:33)
[2024-03-06] MEDS: MIRALAX PO (08:21)
[2024-03-06] MEDS: LOW STRENGTH ASPIRIN PO ×2 (08:21→08:32)
[2024-03-06] MEDS: PROTONIX PO ×2 (08:21→08:32)
[2024-03-06] MEDS: ATIVAN PO ×2 (08:21→08:32)
[2024-03-06] MEDS: VITAMIN C PO ×2 (08:21→08:33)
[2024-03-06] MEDS: COLACE PO ×3 (08:21→19:29)
[2024-03-06] MEDS: PROZAC PO ×4 (08:21→08:33)
[2024-03-06] MEDS: PERIDEX 0.12% ORAL RINSE PO (08:31)
--- NOTE | 2024-03-06 09:09 | PHA.VAN.FU ---
Vancomycin Assessment / Plan
- Assessment
Hemodialysis Schedule: MWF
WBC's are: Trending Down
Concomitant Antimicrobials: cefepime
- Assessment - Therapeutic Drug Monitoring
Random Level: 17.6 - drawn ~4.5H after 1500mg initial dose
Level was not protected from light - may have some degradation of sample
Level essentially a peak but with ESRD & pt reporting he does not make urine, anticipate will maintain level through next HD
- Dosing Plan
Dosing by Level: Hold off on dosing today (will plan to re-dose with HD tomorrow)
- Monitoring Plan
No level(s) ordered at this time: consider next level prior to HD Fri
- Follow Up
Pharmacy will continue to follow.
Vancomycin Follow UP
- -
Patient Age: 53
Patient Sex: Male
Vancomycin Day #: 2
Indication: Skin And Soft Tissue
Requesting Provider: Dr. Dominguez / Shoaib
Pertinent Antimicrobial Allergies:
Penicillins - Unknown
Height / Weight:
Height 5 ft 11 in
Actual Weight 137.3 kg
Pertinent Past Medical History: ESRD on HD MWF, DM2, R. BKA
- Vital Signs / Lab Results
Temp Pulse Resp BP Pulse Ox
99.0 F 78 17 117/45 97
03/06/24 07:41 03/06/24 06:00 03/06/24 06:00 03/06/24 06:00 03/06/24 08:15
Lab Results - Hematology
03/05/24 03/06/24
18:49 04:17
WBC 17.4 H 14.8 H
Lab Results - Chemistry
03/05/24 03/06/24
18:49 04:17
BUN 29 H 33 H
Creatinine 4.9 H* 5.2 H*
Estimated Creat Clear 25 23
Albumin 3.5 3.2 L
03/05/24 03/05/24
18:50 23:00
Lactic Acid 1.9 Cancelled
Microbiology Results
03/05/24 18:49 Blood Culture - Preliminary
Blood/Venous Positive culture in progress
Gram Stain - Preliminary
03/05/24 18:50 Influenza Types A & B ([facility]) - Final
Nasal Swab Negative for Influenza A & B, NAAT
Negative results must be combined with clinical observations
and patient history.
Nucleic Acid Amplification test (NAAT)performed on the
[employer] platform.
Therapeutic Drug Monitoring
Random Vancomycin 17.6 ug/ml 03/06/24 04:17
[2024-03-06 09:22] LABS: Glycohemoglobin (HgbA1c) 6.3 % (4.0-5.6)
[2024-03-06] MEDS: NOVOLOG FLEXPEN-LOW RESISTANCE 1 UNITS SC ×2 (09:45→18:21)
--- NOTE | 2024-03-06 10:47 | CM ---
Patient seen at bedside. Patient primarily Lithuanian speaking and requested CM call to patient family. Per nursing patient has refused medications this am. Patient is LTC at [facility] pending any changes with his trach. Patient plan is to return to
home with HD but no community providers are able to support trach care per Niurka at [facility]. Patient to return to SNF when medically appropriate. CM left VM with DON requesting call back with updated functional status information. CM will call
to patient family to review plans for discharge. CM will continue to follow for discharge planning needs.
Plan; return to SNF; [facility]
[2024-03-06] MEDS: MAXIPIME 1000 MG IV (11:12)
[2024-03-06] MEDS: STERILE WATER FOR INJECTION 10 ML IV (11:12)
[2024-03-06 12:33] LABS: Glucose - Point of Care 141 mg/dl (70-99)
--- NOTE | 2024-03-06 12:37 | CON.ID ---
Addendum entered and electronically signed by Kayra Cramer MD 03/06/24 16:59:
TTE with AV valve lesion; given MRSA bacteremia and fistula would move forward with [facility] if feasible
Original Note:
Consultation
-
Date/Time Consultation Requested: 03/06/24 12:05
Date/Time Consultation Performed: 03/06/24 12:39
Requesting Provider: Dr Kwon
Performing Provider: Dr Cramer
Reason for Consultation: S aureus bacteremia
Chief Complaint / Past History
Chief Complaint
syncope,weakness
History of Present Illness
Mr Laguna is a 53 year old english speaking male with history of ESRD on DH via LUE AVF, PAD s/p BKA, s/p tracheostomy with speaking valve class III obesity. Patient reports about 2 weeks ago he jammed his finger a locker - the nail came
off; the finger has subsequently become swollen, red, tender, decreased ROM and now with purulent drainage. The day before arrival he fell and struck his head, the next day at HD he slumped into his chair and was brought to the ER for evaluation.
No seizure like activity reported, regained conscious quickly and not postictal. Patient states that he does not make urine. He denies any shortness of breath or cough or chest pain. He denies any nausea vomiting or diarrhea. No dysphagia. No
problems with the function of the fistula, redness, tenderness or drainage. No new back pain or changes in vision. No joint replacements
Since arrival here tmax 101.6, bp intermittent hypotension - improved today, HRs normal, wbc on arrival 17.4 now 14.8, hgb 8.9, plt 287, L shift noted today, K on arrival 3.3, now 4.0, cr 5.2, a1c 6.3, t bili 0.8, ast 22, alt 15, alk pohs 129, vanc
this am 17.6, covid ag neg, Right hand Xray - swelling to the wrist, on vancomycin
Past History
Additional Past Medical History:
hypertension, GERD, prior cardiac arrest, prior PEG tube, obstructive sleep apnea, DVT, hypothyroidism, insomnia, depression, obesity, chronic constipation, chronic anemia
Additional Past Surgical History:
Left upper extremity AV fistula, tracheostomy 2022 , PEG tube insertion May 2023 (removed), History right BKA, left second toe removal secondary to gangrene
Allergy History:
iodine Allergy (Verified 03/05/24 17:49)
Unknown
morphine Allergy (Verified 03/05/24 17:49)
Unknown
Penicillins Allergy (Verified 03/05/24 17:49)
Unknown
tetanus and diphtheria toxoids Allergy (Verified 03/05/24 17:49)
Unknown
Medications Reviewed: Yes
Social History
Tobacco: Non-Smoker
Alcohol: None
Drug: None
Family History
Family History: Not Pertinent
Review of Systems
Review of Systems
General: Negative Fever or Chills
All systems: All other systems were reviewed and were negative
Vital Signs
Temp Pulse Resp BP Pulse Ox
99.0 F 81 21 115/88 92
03/06/24 11:28 03/06/24 12:00 03/06/24 12:00 03/06/24 12:00 03/06/24 12:00
Physical Exam
Physical Exam
Constitutional: No Acute Distress
Head: Other (trache with speaking valve)
Pharynx: Other
Cardiovascular: Regular Rate and S1/S2; Negative Murmur or Rub
Pulmonary: Clear and Symmetric; Negative Wheezes, Rales or Rhonchi
Gastrointestinal: Soft, Non Tender, Non Distended and Normal Bowel Sounds
Extremities: Other (right 3rd digit grossly swollen, decreased range of motion of the digit (not wrist), hand swollen; wound on distal digit with tiny amount of purulent drainage, redness, tenderness)
Musculoskeletal: Other (R BKA fully healed)
Skin: Warm and Dry; Negative Rash or Jaundice
Neurological: Awake
Lab / Diagnostic Study Results
03/06/24 04:17
03/06/24 04:17
Abs Immat Gran (auto) 0.1 10^3/uL (0-0.05) H 03/06/24 04:17
Absolute Neuts (auto) 12.3 10^3/uL (1.4-6.5) H 03/06/24 04:17
Absolute Lymphs (auto) 0.8 10^3/uL (1.2-3.4) L 03/06/24 04:17
Absolute Monos (auto) 1.2 10^3/uL (0.1-0.6) H 03/06/24 04:17
Absolute Basos (auto) 0.1 10^3/uL (0-0.2) 03/06/24 04:17
Immature Gran % 0.4 % (0-0.5) 03/06/24 04:17
Neutrophils % 83.0 % (42.2-75.2) H 03/06/24 04:17
Lymphocytes % 5.1 % (20.5-51.1) L 03/06/24 04:17
Monocytes % 8.3 % (1.7-9.3) 03/06/24 04:17
Eosinophils % 2.5 % (0-6) 03/06/24 04:17
Basophils % 0.7 % (0-2) 03/06/24 04:17
Lactic Acid Cancelled 03/05/24 23:00
Microbiology Results
Micro:
03/05/24 18:49 Blood Culture - Preliminary
Blood/Venous Staph aureus MRSA
Gram Stain - Preliminary
03/05/24 18:49 Blood Culture - Preliminary
Blood/Venous Positive culture in progress
Gram Stain - Preliminary
03/05/24 18:50 Influenza Types A & B ([facility]) - Final
Nasal Swab Negative for Influenza A & B, NAAT
Negative results must be combined with clinical observations
and patient history.
Nucleic Acid Amplification test (NAAT)performed on the
[employer] platform.
Assessment / Plan
MRSA bacteremia
Right 3rd finger Paronychia and cellulitis
Right 3rd digit tenosynovitis
LUE AVF
Class III obesity
- repeat blood cultures x2 today
- source is the 3rd digit infection
- agree with vancomycin at this time - levels at goal; appreciate pharmacy assistance; stop cefepime
- Xray: soft tissue swelling - dorsal hand to wrist, no gross evidence of osteomyelitis
- RUE US no DVT
- follow clinically
--- NOTE | 2024-03-06 13:06 | CON.ORTHO ---
Consultation
-
Date/Time Consultation Requested: 03/06/2024 0910
Date/Time Consultation Performed: 03/06/2024 1300
Requesting Provider: Dr. Maritza Kwon
Performing Provider: KEMAR Lockhart
Reason for Consultation: Right middle finger infection
Consultation - Orthopedics
History
53-year-old male Albanian only speaking patient currently admitted to the IMU unit for sepsis suspected secondary towards infection of his right middle finger. The patient has a significant past medical history to include end-stage renal disease
with dialysis Tuesday, diabetes with most recent hemoglobin A1c of 6.3, coronary artery disease with previous cardiac arrest, prior PEG tube, DVT, hypothyroidism, chronic anemia, and tracheostomy. Reports 2 weeks ago he jammed his
finger in a locker and his nails come off with continued progressive swelling and pain. He is presently admitted for most recent syncopal episode with workup significant for sepsis. Orthopedic surgery is consulted for the status of his right
finger. Of note the patient has multiple amputations to include a right BKA as well as multiple toes
Allergies / Home Medications
Past Medical History: Reports Other (ESRD on hemodialysis Tuesday, Tuesday, Tuesday, diabetes, PAD status post right BKA, hypertension, GERD, prior cardiac arrest tracheostomy, prior PEG tube, obstructive sleep apnea, DVT, hypothyroidism, insomnia,
depression, obesity, chronic constipation, chronic anemia)
Past Surgical History: Reports Other (Left upper extremity AV fistula, prior tracheostomy 2022 , PEG tube insertion May 2023,History right BKA, left second toe removal secondary to gangrene))
Allergy/AdvReac Type Severity Reaction Status Date / Time
iodine Allergy Unknown Verified 03/05/24 17:49
morphine Allergy Unknown Verified 03/05/24 17:49
Penicillins Allergy Unknown Verified 03/05/24 17:49
tetanus and diphtheria Allergy Unknown Verified 03/05/24 17:49
toxoids
�Medication �Instructions �Recorded
acetaminophen 500 mg tablet 500 mg PO Q6HPRN PRN mild 07/22/23
pain/headaches
apixaban 2.5 mg tablet 2.5 mg PO BID Blood Clot 07/22/23
Prevention/Tx
ascorbic acid (vitamin C) 250 mg 250 mg PO DAILY Supplement 07/22/23
tablet (Vitamin C)
aspirin 81 mg chewable tablet 81 mg PO DAILY Blood Clot 07/22/23
Prevention/Tx
atorvastatin 40 mg tablet 60 mg PO QPM High Cholesterol 07/22/23
bisacodyl 10 mg rectal suppository [address] DAILYPRN PRN constipation 07/22/23
(Dulcolax (bisacodyl))
carvedilol 3.125 mg tablet 3.125 mg PO BID Heart 07/22/23
Disease/Condition
chlorhexidine gluconate 0.12 % 15 ml mucous membrane BID Infection 07/22/23
mouthwash (Peridex)
diphenhydramine HCl 25 mg capsule 25 mg PO Q8HPRN PRN allergies 07/22/23
docusate sodium 100 mg capsule 100 mg PO BID Constipation 07/22/23
hydroxyzine HCl 25 mg tablet 25 mg PO [id number] PRN itching 07/22/23
icosapent ethyl 1 gram capsule 2 g PO BID Heart Disease/Condition 07/22/23
(Vascepa)
insulin glargine 100 unit/mL (3 21 unit SC HS Diabetes 07/22/23
mL) subcutaneous pen (Lantus
Solostar U-100 Insulin)
levothyroxine 75 mcg tablet 75 mcg PO DAILY Thyroid 07/22/23
lidocaine 5 % topical cream 1 applic topical Q8HPRN PRN AVF 07/22/23
site
melatonin 5 mg tablet 5 mg PO HS Sleep 07/22/23
pantoprazole 40 mg tablet,delayed 40 mg PO DAILY Gastrointestinal 07/22/23
release Issue
sorbitol 70 % solution 30 ml PO DAILYPRN PRN if no BM x 3 07/22/23
days
vitamin B complex and vitamin C 1 cap PO QPM Supplement 07/22/23
no.20-folic acid 1 mg capsule
(Renal Caps)
polyethylene glycol 3350 17 gram 17 g PO DAILY constipation 09/21/23
oral powder packet (Miralax)
acetaminophen 325 mg tablet 650 mg PO Q6HPRN PRN mild 11/02/23
pain/temp>100.4
midodrine 2.5 mg tablet 2.5 mg PO Q12H PRN sbp<90 11/05/23
bupropion HCl 100 mg tablet,12 hr 100 mg PO Q48H Mental 03/04/24
sustained-release (Wellbutrin SR) Health/Anxiety
dextran 70-hypromellose eye drops 1 drp BOTH EYES Q8HPRN PRN dry eyes 03/04/24
in a dropperette (Artificial Tears
(PF) drops in a dropperette)
ferrous sulfate 325 mg (65 mg 325 mg PO DAILY Supplement 03/04/24
iron) tablet
fluoxetine 10 mg capsule 10 mg PO DAILY Mental 03/04/24
Health/Anxiety
fluoxetine 40 mg capsule 40 mg PO DAILY Mental 03/04/24
Health/Anxiety
guaifenesin 100 mg/5 mL oral syrup 200 mg PO Q4H PRN congestion 03/04/24
insulin aspart U-100 100 unit/mL 0 sliding scale dose SC 03/04/24
subcutaneous solution (Novolog DIRECTED Diabetes
U-100 Insulin aspart)
latanoprost 0.005 % eye drops 1 drp LEFT EYE HS Eye Condition 03/04/24
lorazepam 0.5 mg tablet 0.5 mg PO BID Mental Health/Anxiety 03/04/24
Vital Signs / Lab Results
Temp Pulse Resp BP Pulse Ox
99.0 F 81 21 115/88 91
03/06/24 11:28 03/06/24 12:00 03/06/24 12:00 03/06/24 12:00 03/06/24 12:20
03/06/24 04:17
03/06/24 04:17
Imaging: X-rays taken of the right hand and of the right middle finger show no acute or significant chronic osseous abnormalities about the right finger. No current evidence for osteomyelitis on plain films
Physical examination: Focused examination of the right upper extremity shows whole digit swelling that goes from distal to the base of the proximal phalanx skin crease. There is currently no nail. Skin is relatively dry with 1 area of fresh red
bleeding of the nailbed with overall dark discoloration. The finger is slight rested flexed position. He is able to tolerate passive extension with mild discomfort. He does have mild tenderness throughout the flexor tendon sheath from flexor
zones 1 and 2. There is no evidence of fluid collection in the dorsal aspect of the finger. There is discoloration of the flexor side of his finger and bogginess with no significant capillary refill of the distal finger tuft.
Assessment / Plan
53-year-old male significant past medical history of end-stage renal disease, diabetes, and peripheral vascular disease with history of multiple amputations with crush injury of the second middle finger currently admitted for sepsis without under
identified cause. X-rays do not currently show evidence of osteomyelitis. Unfortunately patient has overall poor wound healing potential and there is some evidence on examination of early necrosis and poor vascularity of the finger. With his
medical history he is high risk for refractory to heal peripheral wounds as been seen with his previous other amputations. Consideration will be for observation and antibiotic management as he is currently on as well as consideration for amputation.
Recommend MRI of the right hand for further evaluation for extent of disease and further consideration of operative intervention. Otherwise continue relative rest at this time with current antibiotic selection
[2024-03-06] MEDS: NOVOLOG FLEXPEN-LOW RESISTANCE SC (13:09)
--- NOTE | 2024-03-06 14:05 | PTCARENOTE ---
Pt presents as assessed. Communicating with pt via language line. Sating mid to high 90's on TC, #6 Ludmila, 5L at 28%. Pt repeatedly removing O2 and refusing to allow staff to replace it. Desats to mid 80's without O2. RT at bedside to suction pt;
pt then agreeable to allow RT to replace O2.
--- NOTE | 2024-03-06 14:54 | W.PN.UPDATE ---
Update Note
Progress Note Update
Patient seen and examined
Patient has right middle finger necrosis/ infection.
There is pain in the palm, in line with the middle finger concerning for more proximal infection.
There is diminished radial and ulnar pulses
MRI was ordered in order to evaluate the extend of the disease.
At this point, it appears that the patient will need right middle finger amputation. The MRI will help determine the level.
Will plan for surgical treatment later this week, pending MRI findings.
Discussed the plan with the patient and his .
--- NOTE | 2024-03-06 14:54 | W.CON.NEPH ---
Consultation
-
Date/Time Consultation Requested: 03/05/2024 22:31
Date/Time Consultation Performed: 03/06/2024 2:55PM
Requesting Provider: Tee Ghosh
Performing Provider: Arline Pickens
Reason for Consultation: ESRD on HD
Medical History
-
Chief Complaint: ESRD on HD
History of Present Illness:
Mr. Christine is a 53YOM with PMH of hemodialysis Tuesday, Tuesday, Tuesday, diabetes, PAD status post right BKA, hypertension, GERD, prior cardiac arrest, prior PEG tube, obstructive sleep apnea, DVT, hypothyroidism, insomnia, depression,
obesity, chronic constipation, chronic anemia who presents to the hospital after a fall.
Patient completed his HD treatment yesterday and then slumped in chair and brought for evaluation. he endorses significant pain on his finger. He states that 2 weeks ago he jammed his finger in a locker and the nail came off.
Patient states that he does not make urine. He denies any shortness of breath or cough or chest pain. He denies any nausea vomiting or diarrhea. He denies any history of swallowing dysfunction
Past Medical History
Past Medical History: Other (ESRD on hemodialysis Tuesday, Tuesday, Tuesday, diabetes, PAD status post right BKA, hypertension, GERD, prior cardiac arrest tracheostomy, prior PEG tube, obstructive sleep apnea, DVT, hypothyroidism, insomnia,
depression, obesity, chronic constipation, chronic anemia)
Past Surgical History: Other (Left upper extremity AV fistula, prior tracheostomy 2022 , PEG tube insertion May 2023,History right BKA, left second toe removal secondary to gangrene)
Social History
Tobacco: Non-Smoker
Alcohol: None
Drug: None
Family History
Family History: Not Pertinent
Allergies / Home Medications
Allergy/AdvReac Type Severity Reaction Status Date / Time
iodine Allergy Unknown Verified 03/05/24 17:49
morphine Allergy Unknown Verified 03/05/24 17:49
Penicillins Allergy Unknown Verified 03/05/24 17:49
tetanus and diphtheria Allergy Unknown Verified 03/05/24 17:49
toxoids
�Medication �Instructions �Recorded �Confirmed �Type
acetaminophen 500 mg tablet 500 mg PO Q6HPRN PRN mild 07/22/23 03/05/24 History
pain/headaches
apixaban 2.5 mg tablet 2.5 mg PO BID Blood Clot 07/22/23 03/05/24 History
Prevention/Tx
ascorbic acid (vitamin C) 250 mg 250 mg PO DAILY Supplement 07/22/23 03/05/24 History
tablet (Vitamin C)
aspirin 81 mg chewable tablet 81 mg PO DAILY Blood Clot 07/22/23 03/05/24 History
Prevention/Tx
atorvastatin 40 mg tablet 60 mg PO QPM High Cholesterol 07/22/23 03/05/24 History
bisacodyl 10 mg rectal suppository 10 mg ND DAILYPRN PRN constipation 07/22/23 03/05/24 History
(Dulcolax (bisacodyl))
carvedilol 3.125 mg tablet 3.125 mg PO BID Heart 07/22/23 03/05/24 History
Disease/Condition
chlorhexidine gluconate 0.12 % 15 ml mucous membrane BID Infection 07/22/23 03/05/24 History
mouthwash (Peridex)
diphenhydramine HCl 25 mg capsule 25 mg PO Q8HPRN PRN allergies 07/22/23 03/05/24 History
docusate sodium 100 mg capsule 100 mg PO BID Constipation 07/22/23 03/05/24 History
hydroxyzine HCl 25 mg tablet 25 mg PO [id number] PRN itching 07/22/23 03/05/24 History
icosapent ethyl 1 gram capsule 2 g PO BID Heart Disease/Condition 07/22/23 03/05/24 History
(Vascepa)
insulin glargine 100 unit/mL (3 21 unit SC HS Diabetes 07/22/23 03/05/24 History
mL) subcutaneous pen (Lantus
Solostar U-100 Insulin)
levothyroxine 75 mcg tablet 75 mcg PO DAILY Thyroid 07/22/23 03/05/24 History
lidocaine 5 % topical cream 1 applic topical Q8HPRN PRN AVF 07/22/23 03/05/24 History
site
melatonin 5 mg tablet 5 mg PO HS Sleep 07/22/23 03/05/24 History
pantoprazole 40 mg tablet,delayed 40 mg PO DAILY Gastrointestinal 07/22/23 03/05/24 History
release Issue
sorbitol 70 % solution 30 ml PO DAILYPRN PRN if no BM x 3 07/22/23 03/05/24 History
days
vitamin B complex and vitamin C 1 cap PO QPM Supplement 07/22/23 03/05/24 History
no.20-folic acid 1 mg capsule
(Renal Caps)
polyethylene glycol 3350 17 gram 17 g PO DAILY constipation 09/21/23 03/05/24 History
oral powder packet (Miralax)
acetaminophen 325 mg tablet 650 mg PO Q6HPRN PRN mild 11/02/23 03/05/24 History
pain/temp>100.4
midodrine 2.5 mg tablet 2.5 mg PO Q12H PRN sbp<90 11/05/23 03/05/24 History
bupropion HCl 100 mg tablet,12 hr 100 mg PO Q48H Mental 03/04/24 03/05/24 History
sustained-release (Wellbutrin SR) Health/Anxiety
dextran 70-hypromellose eye drops 1 drp BOTH EYES Q8HPRN PRN dry eyes 03/04/24 03/05/24 History
in a dropperette (Artificial Tears
(PF) drops in a dropperette)
ferrous sulfate 325 mg (65 mg 325 mg PO DAILY Supplement 03/04/24 03/05/24 History
iron) tablet
fluoxetine 10 mg capsule 10 mg PO DAILY Mental 03/04/24 03/05/24 History
Health/Anxiety
fluoxetine 40 mg capsule 40 mg PO DAILY Mental 03/04/24 03/05/24 History
Health/Anxiety
guaifenesin 100 mg/5 mL oral syrup 200 mg PO Q4H PRN congestion 03/04/24 03/05/24 History
insulin aspart U-100 100 unit/mL 0 sliding scale dose SC 03/04/24 03/05/24 History
subcutaneous solution (Novolog DIRECTED Diabetes
U-100 Insulin aspart)
latanoprost 0.005 % eye drops 1 drp LEFT EYE HS Eye Condition 03/04/24 03/05/24 History
lorazepam 0.5 mg tablet 0.5 mg PO BID Mental Health/Anxiety 03/04/24 03/05/24 History
Review of Systems
-
History Source: Patient
All other systems: Negative unless noted
Musculoskeletal: Joint Pain
Neurological: Headache
Physical Exam
Vital Signs
Vital Signs
Temp Pulse Resp BP Pulse Ox
99.0 F 81 21 115/88 91
03/06/24 11:28 03/06/24 12:00 03/06/24 12:00 03/06/24 12:00 03/06/24 12:20
Lab Results
WBC 14.8 10^3/uL (4.8-10.8) H 03/06/24 04:17
RBC 3.02 10^6/uL (4.70-6.10) L 03/06/24 04:17
Hgb 8.9 g/dL (13.0-18.0) L 03/06/24 04:17
Hct 28.5 % (39.0-52.0) L 03/06/24 04:17
Plt Count 287 10^3/uL (130-400) 03/06/24 04:17
Sodium 138 mmol/L (135-145) 03/06/24 04:17
Potassium 4.0 mmol/L (3.5-5.1) 03/06/24 04:17
Chloride 97 mmol/L (98-107) L 03/06/24 04:17
Carbon Dioxide 22 mmol/L (22-30) 03/06/24 04:17
BUN 33 mg/dl (9-20) H 03/06/24 04:17
Creatinine 5.2 mg/dL (0.7-1.3) H* 03/06/24 04:17
eGFR 12.29 03/06/24 04:17
Glucose 149 mg/dl (70-99) H 03/06/24 04:17
Calcium 8.0 mg/dl (8.4-10.2) L 03/06/24 04:17
Albumin 3.2 g/dl (3.5-5.0) L 03/06/24 04:17
Physical Exam
General: Awake and Alert
HEENT: PERRL, EOMI, Anicteric, Conjunctivae Clear, Ear/Nose Intact and Hearing Normal
Respiratory: Wheezes
Cardiac: S1/S2 and Regular Rate/Rhythm
Breast: N/A
Abdomen: Soft, Nontender and Nondistended
Rectal: Deferred by Provider
Musculoskeletal: No Cyanosis, No Edema and Other (Right middle digit with ?necrosis)
Skin: No Rash, Warm and Dry
Neuro: Nonfocal/Grossly Intact (lethargic todayu)
Hematologic/Lymphatic: No Cervical Lymphadenopathy
Psych: Mood/afflect pleasant and Insight/judgement good
Vascular Access: AVG
Data Reviewed
-
Radiology: Image Personally Visualized and interpreted (no acute cardiopulm process)
CT Scan: Report Reviewed by me (no intracranial abnormality)
Labs: Labs Reviewed by me, Discussed with Physician and Discussed with Nurse
Old Records: Reviewed
Assessment/Plan
-
Assessment:
Sepsis (right third finger source?)
Syncopal episode
ESRD on HD MWF
T2DM
PAD s/p R BKA
DLD
HTN
GERD
Plan:
plan for HD tomorrow per usual MWF schedule
per ortho might need R middle finger amputation, planning for surgery later this week
--- NOTE | 2024-03-06 15:00 | PTCARENOTE ---
Call received from MRI, requesting to measure pt's circumference with his arms by his sides d/t concern pt will not fit in machine. Pt measured at 71 inches- MRI states cutoff for machine is 60 inches. Adilson Cabrales PAC notified via TT.
--- NOTE | 2024-03-06 16:06 | CON.CAR ---
Addendum entered and electronically signed by Jez Arechiga MD 03/06/24 17:00:
I saw and examined the patient.
The STRATEGIC ACCOUNT MANAGER's note was reviewed and I agree with the note.
Comment: 53-year-old Sudanese-speaking male with tracheostomy, end-stage renal disease on hemodialysis, PAD status post right BKA, hypertension, GERD, prior cardiac arrest, prior PEG tube, hypothyroidism, obesity and anemia of chronic disease who
presented with syncope. Further workup revealed sepsis and MRSA bacteremia. TTE showed a possible vegetation on the NCC of the AV, concerning for possible vegetation.
- JHOAN tomorrow
- Abx per ID
Original Note:
Consultation
Consultation Request
Date/Time Consultation Requested: 03/06/2024 16:00
Date/Time Consultation Performed: 03/06/2024 16:05
Requesting Provider: Dr. Kwon
Performing Provider: MICHELLE Velasquez for Dr. Arechiga
Reason for Consultation: Abnormal echocardiogram
Medical History
-
Chief Complaint: Syncope
History of Present Illness:
Nile Márquez is a 53-year-old Sudanese-speaking male with tracheostomy, end-stage renal disease on hemodialysis, PAD status post right BKA, hypertension, GERD, prior cardiac arrest, prior PEG tube, hypothyroidism, obesity and anemia of
chronic disease who presented with syncope. Further workup revealed sepsis. Echocardiogram ordered today prompted by positive blood cultures showed an echodensity on the noncoronary cusp of the aortic valve.
This patient's primary language is Sudanese. A translation service was used for this consultation.
Past Medical History
Past Medical History: GERD, HTN, Hypothyroidism, Renal Failure (ESRD on HD) and Other (Tracheostomy)
Past Surgical History: Orthopedic (Right BKA)
Social History
Tobacco: Non-Smoker
Alcohol: None
Drug: None
Living: Detention ([facility])
Family History
Family History: Reviewed & Not Pertinent
Allergies / Home Medications
Allergy/AdvReac Type Severity Reaction Status Date / Time
iodine Allergy Unknown Verified 03/05/24 17:49
morphine Allergy Unknown Verified 03/05/24 17:49
Penicillins Allergy Unknown Verified 03/05/24 17:49
tetanus and diphtheria Allergy Unknown Verified 03/05/24 17:49
toxoids
�Medication �Instructions �Recorded �Confirmed �Type
acetaminophen 500 mg tablet 500 mg PO Q6HPRN PRN mild 07/22/23 03/05/24 History
pain/headaches
apixaban 2.5 mg tablet 2.5 mg PO BID Blood Clot 07/22/23 03/05/24 History
Prevention/Tx
ascorbic acid (vitamin C) 250 mg 250 mg PO DAILY Supplement 07/22/23 03/05/24 History
tablet (Vitamin C)
aspirin 81 mg chewable tablet 81 mg PO DAILY Blood Clot 07/22/23 03/05/24 History
Prevention/Tx
atorvastatin 40 mg tablet 60 mg PO QPM High Cholesterol 07/22/23 03/05/24 History
bisacodyl 10 mg rectal suppository 10 mg ID DAILYPRN PRN constipation 07/22/23 03/05/24 History
(Dulcolax (bisacodyl))
carvedilol 3.125 mg tablet 3.125 mg PO BID Heart 07/22/23 03/05/24 History
Disease/Condition
chlorhexidine gluconate 0.12 % 15 ml mucous membrane BID Infection 07/22/23 03/05/24 History
mouthwash (Peridex)
diphenhydramine HCl 25 mg capsule 25 mg PO Q8HPRN PRN allergies 07/22/23 03/05/24 History
docusate sodium 100 mg capsule 100 mg PO BID Constipation 07/22/23 03/05/24 History
hydroxyzine HCl 25 mg tablet 25 mg PO [id number] PRN itching 07/22/23 03/05/24 History
icosapent ethyl 1 gram capsule 2 g PO BID Heart Disease/Condition 07/22/23 03/05/24 History
(Vascepa)
insulin glargine 100 unit/mL (3 21 unit SC HS Diabetes 07/22/23 03/05/24 History
mL) subcutaneous pen (Lantus
Solostar U-100 Insulin)
levothyroxine 75 mcg tablet 75 mcg PO DAILY Thyroid 07/22/23 03/05/24 History
lidocaine 5 % topical cream 1 applic topical Q8HPRN PRN AVF 07/22/23 03/05/24 History
site
melatonin 5 mg tablet 5 mg PO HS Sleep 07/22/23 03/05/24 History
pantoprazole 40 mg tablet,delayed 40 mg PO DAILY Gastrointestinal 07/22/23 03/05/24 History
release Issue
sorbitol 70 % solution 30 ml PO DAILYPRN PRN if no BM x 3 07/22/23 03/05/24 History
days
vitamin B complex and vitamin C 1 cap PO QPM Supplement 07/22/23 03/05/24 History
no.20-folic acid 1 mg capsule
(Renal Caps)
polyethylene glycol 3350 17 gram 17 g PO DAILY constipation 09/21/23 03/05/24 History
oral powder packet (Miralax)
acetaminophen 325 mg tablet 650 mg PO Q6HPRN PRN mild 11/02/23 03/05/24 History
pain/temp>100.4
midodrine 2.5 mg tablet 2.5 mg PO Q12H PRN sbp<90 11/05/23 03/05/24 History
bupropion HCl 100 mg tablet,12 hr 100 mg PO Q48H Mental 03/04/24 03/05/24 History
sustained-release (Wellbutrin SR) Health/Anxiety
dextran 70-hypromellose eye drops 1 drp BOTH EYES Q8HPRN PRN dry eyes 03/04/24 03/05/24 History
in a dropperette (Artificial Tears
(PF) drops in a dropperette)
ferrous sulfate 325 mg (65 mg 325 mg PO DAILY Supplement 03/04/24 03/05/24 History
iron) tablet
fluoxetine 10 mg capsule 10 mg PO DAILY Mental 03/04/24 03/05/24 History
Health/Anxiety
fluoxetine 40 mg capsule 40 mg PO DAILY Mental 03/04/24 03/05/24 History
Health/Anxiety
guaifenesin 100 mg/5 mL oral syrup 200 mg PO Q4H PRN congestion 03/04/24 03/05/24 History
insulin aspart U-100 100 unit/mL 0 sliding scale dose SC 03/04/24 03/05/24 History
subcutaneous solution (Novolog DIRECTED Diabetes
U-100 Insulin aspart)
latanoprost 0.005 % eye drops 1 drp LEFT EYE HS Eye Condition 03/04/24 03/05/24 History
lorazepam 0.5 mg tablet 0.5 mg PO BID Mental Health/Anxiety 03/04/24 03/05/24 History
Review of Systems
-
History Source: Patient
All other systems: Negative unless noted
Constitutional: Fatigue
Respiratory: No Symptoms
Cardiac: No Symptoms
Abdomen/GI: No Symptoms
Musculoskeletal: Joint Pain (Right middle finger)
Physical Exam
Vital Signs
Temp Pulse Resp BP Pulse Ox
99.0 F 79 11 110/40 99
03/06/24 11:28 03/06/24 14:00 03/06/24 14:00 03/06/24 14:00 03/06/24 14:00
Lab Results
03/06/24 04:17
03/06/24 04:17
Troponin I 0.028 ng/ml 03/05/24 18:49
Physical Exam
General: Well Developed, Well Nourished, No Apparent Distress and Comfortable
HEENT: Normocephalic, Anicteric and Moist Mucous Membranes
Respiratory: Clear, Non Labored Respirations and Other (Tracheostomy in place)
Cardiac: S1/S2 and Regular Rhythm
Breast: Deferred by me
GI: Soft, Non Tender, Non Distended and Normal Bowel Sounds
Rectal: Deferred by Provider
Genito-urinary: No Costovertebral Tender
Musculoskeletal: No Clubbing, No Cyanosis and No Edema
Skin: Warm, Dry and Other (Right middle finger with necrosis)
Neuro: AO x 3
Hematologic/Lymphatic: No Lymphadenopathy
Psych: Calm
Impression / Plan
-
Bacteremia, MRSA
-MRSA in 1 bottle of blood cultures, second bottle pending
-Echodensity on NCC of aortic valve
-ID following
Right middle finger injury
-No osteomyelitis on CXR
-Early necrosis with poor vascularity per Ortho
-MRI ordered for further consideration of operative intervention however if this is unable to be completed due to body habitus
Syncope
-This was likely in the setting of hypotension/sepsis
Hypertension
-Carvedilol on hold in the setting of hypotension
Tracheostomy
ESRD on HD Tuesday, Tuesday, Tuesday, nephrology following
Prior DVT, on apixaban 2.5 mg twice daily
Type 2 diabetes mellitus, HbA1c 6.3%
PAD s/p right BKA
Anemia of chronic disease, on iron
Data Reviewed
-
EKG: Report Reviewed by me (Sinus rhythm, rate 86; sinus rhythm, IRBBB, prolonged QT, rate 81)
Medical Tests (Nuc Med, Echo etc): Report Reviewed by me (Echocardiogram as above)
Labs: Labs Reviewed by me
--- NOTE | 2024-03-06 17:20 | W.PN.UPDATE ---
Update Note
Progress Note Update
pt unable to get MRI; order changed to CT w/ contrast, ok per primary/nephro
[2024-03-06] MEDS: LIPITOR 60 MG PO (18:23)
[2024-03-06] MEDS: NEPHROCAP 1 CAPSULE PO (18:23)
[2024-03-06 18:29] LABS: Glucose - Point of Care 154 mg/dl (70-99)
[2024-03-06] MEDS: PERIDEX 0.12% ORAL RINSE 15 ML PO (19:44)
[2024-03-06] MEDS: MELATONIN 5 MG PO (19:44)
[2024-03-06] MEDS: ATIVAN 0.5 MG PO (19:44)
[2024-03-06 21:36] LABS: Glucose - Point of Care 176 mg/dl (70-99)
[2024-03-06] MEDS: LANTUS 0.209999999999999992 UNITS SC (21:53)
[2024-03-06] MEDS: XALATAN OPHTHALMIC SOLUTION 1 DROP LEFT EYE (21:53)
[2024-03-06] MEDS: TYLENOL 650 MG PO (23:21)
[2024-03-07] VITALS (73 sets, daily range): BP systolic 54–145; BP diastolic 19–121; BMI 42.1
[2024-03-07] MEDS: ProAmatine 2.5 MG PO ×3 (00:07→17:29)
--- NOTE | 2024-03-07 03:06 | DOWNTIME ---
There was a [employer] Client Benefits Analyst Downtime on 03/06/2024 from 0100 to 03/07/2024 at 0300. Downtime documentation of patient's care, including medication administrations, has been reconciled in the electronic record per guidelines. Refer to the
patient's paper chart under the miscellaneous tab to see printed paper medication records and downtime forms.
[2024-03-07] MEDS: SYNTHROID PO (04:30)
--- NOTE | 2024-03-07 05:51 | PTCARENOTE ---
Addendum entered by Baldemar Foote RN 03/07/24 06:06:
pt also with soft BP's during the night, PRN midodrine given per DEC with good results.
Original Note:
pt with fever overnight- given PO tylenol per DEC. pt suctioned twice during the night for thick yellow secretions. blood cultures were drawn last night per order. another set for AM. care ongoing.
[2024-03-07] MEDS: NOVOLOG FLEXPEN-LOW RESISTANCE SC ×3 (06:28→16:36)
[2024-03-07 06:37] LABS: Glucose - Point of Care 135 mg/dl (70-99)
--- NOTE | 2024-03-07 08:06 | W.PN.HOSP.TC ---
Today's Communication/Plan
-
see plan
Assessment / Plan
Assessment / Plan
53-year-old male past medical history of ESRD on hemodialysis Tuesday, Tuesday, Tuesday, diabetes, PAD status post right BKA, hypertension, GERD, prior cardiac arrest, prior PEG tube, obstructive sleep apnea, DVT, hypothyroidism, insomnia,
depression, obesity, chronic constipation, chronic anemia, presenting for weakness while seen at HD. He had an ER visit day prior for syncope
HEAD CT
CERVICAL SPINE CT
IMPRESSION:
1. No acute intracranial abnormality noted.
2. No acute fracture or subluxation of the cervical spine.
CXR
03/05/24
IMPRESSION:
No acute cardiopulmonary process.
PLAN:
# Sepsis (fever, leukocytosis, hypotension) unclear source likely due to right third finger paronychia,
# concern for tenosynovitis right middle finger with evidence of necrosis
# MRSA Bacteremia
-blood cultures + MRSA
-appreciate ortho and ID consults
-TTE with possible AV vegetation - plan for JHOAN today
-CT with IV contrast ordered of right hand; patient with reported skin reaction to iodine --> will premedicate (discussed with CT and RN)
-daily blood cultures
-NPO for JHOAN
-Eliquis on hold for upcoming procedure, likely needs amputation later this week
# Syncopal episode yesterday secondary to hypotension/sepsis
-CT head and C-spine shows no acute abnormalities
-Trop now negative x 3
ESRD on hemodialysis Tuesday, Tuesday, Tuesday
-Continue midodrine
-Nephrology consulted
Type 2 diabetes
-Continue Lantus 21 units
-insulin sliding scale
PAD status post right BKA
-Continue aspirin, statin
Hyperlipidemia
-Continue Vascepa
Essential hypertension
-Hold Coreg due to hypotension
GERD
-Continue Protonix
History of prior cardiac arrest
Current tracheostomy
Prior PEG tube
Obstructive sleep apnea
History of DVT
-hold Eliquis for upcoming procedure
Hypothyroidism
-Continue levothyroxine
Anxiety/depression
-Continue bupropion, fluoxetine, Ativan
Insomnia
Obesity
Chronic anemia
-Continue iron sulfate
Chronic constipation
-Continue bowel regimen
Full code
DVT prophylaxis�Eliquis
Regular diet
Anticipated Discharge: > 48 hours
Subjective/Interval History
-
Date of Service: March 07, 2024
patient receiving dialysis
denies pain
states he has an iodine allergy -has episode of skin flaking following but can't elaborate how severe it is
Objective Data
-
Vital Signs:
Vital Signs
Temp Pulse Resp BP Pulse Ox
97.9 F 69 17 94/42 97
03/07/24 04:21 03/07/24 06:00 03/07/24 06:00 03/07/24 06:00 03/07/24 06:00
Review of Systems
-
History Source: Patient
All other systems: Reviewed and negative
Physical Exam
-
General: No Apparent Distress
HEENT: Normocephalic, Atraumatic, Moist Mucous Membranes and Tracheostomy Collar
Respiratory: Clear to Auscultation
Cardiac: Regular Rhythm and S1/S2; Negative Murmur, Rub or Gallop
GI: Soft, Nontender, Nondistended, Normal Bowel Sounds and Peg Tube; Negative Organomegaly
Rectal: Deferred by Provider
Musculoskeletal: Other (right middle finger with necrotic nail and significant swelling; cannot extend finger; pain extending towards dorsal surface hand )
Skin: Negative Rash
Neuro: Awake, Alert and Nonfocal/Grossly Intact
Psych: Calm
Data Reviewed
-
Diagnostic Radiology: Report Reviewed by me
Labs: Labs Reviewed by me
--- NOTE | 2024-03-07 08:24 | PHA.VAN.FU ---
Vancomycin Assessment / Plan
- Assessment
Hemodialysis Schedule: MWF
In the past 24 hrs, patient has been: Febrile
- Dosing Plan
Dosing by Level: Re-dose today (Vanc 1000mg)
- Monitoring Plan
No level(s) ordered at this time: consider pre-HD level for Fri
- Follow Up
Pharmacy will continue to follow.
Vancomycin Follow UP
- -
Patient Age: 53
Patient Sex: Male
Vancomycin Day #: 3
Indication: Skin And Soft Tissue
Requesting Provider: Dr. Dominguez / Shoaib
Pertinent Antimicrobial Allergies:
Penicillins - Unknown
Height / Weight:
Height 5 ft 11 in
Actual Weight 136.9 kg
Pertinent Past Medical History: ESRD on HD MWF, DM2, R. BKA
- Vital Signs / Lab Results
Temp Pulse Resp BP Pulse Ox
97.9 F 69 17 94/42 97
03/07/24 04:21 03/07/24 06:00 03/07/24 06:00 03/07/24 06:00 03/07/24 06:00
Lab Results - Hematology
03/05/24 03/06/24
18:49 04:17
WBC 17.4 H 14.8 H
Lab Results - Chemistry
03/05/24 03/06/24
18:49 04:17
BUN 29 H 33 H
Creatinine 4.9 H* 5.2 H*
Estimated Creat Clear 25 23
Albumin 3.5 3.2 L
03/05/24 03/05/24
18:50 23:00
Lactic Acid 1.9 Cancelled
Microbiology Results
03/05/24 18:49 Blood Culture - Preliminary
Blood/Venous Staph aureus MRSA
Gram Stain - Final
03/05/24 18:49 Blood Culture - Preliminary
Blood/Venous Positive culture in progress
Gram Stain - Final
03/05/24 18:50 Influenza Types A & B ([facility]) - Final
Nasal Swab Negative for Influenza A & B, NAAT
Negative results must be combined with clinical observations
and patient history.
Nucleic Acid Amplification test (NAAT)performed on the
[employer] platform.
Therapeutic Drug Monitoring
Random Vancomycin 17.6 ug/ml 03/06/24 04:17
--- NOTE | 2024-03-07 08:41 | W.PN.NEPH.HD ---
Assessment
-
Patient seen on HD
sbp 140 at current u/f
Progress Note - Hemodialysis
-
Date of Service: March 07, 2024
Duration: 30 minutes and 3 hours
Potassium Bath: 3
Calcium Bath: 2.5
Opti-Dialyzer: 160
Ultrafiltration: Other (3kg)
Blood Flow: 400
Dialysate Flow: 600
Heparin: none
EPO: 10K
--- NOTE | 2024-03-07 09:26 | W.PN.ID1 ---
Addendum entered and electronically signed by Kyara Cramer MD 03/07/24 17:29:
DULCE not yet available, but repeat blood cultures are NGTD
Original Note:
Date of Service
Date of Service: March 07, 2024
Today's Communication
continue vanc
follow cultures
Assessment / Plan
MRSA bacteremia
Right 3rd finger Paronychia and cellulitis
Right 3rd digit tenosynovitis
LUE AVF
Class III obesity
- repeat blood cultures 03/06 no growth to date
- source of bacteremia is the 3rd digit infection
- agree with vancomycin at this time; appreciate pharmacy assistance
- follow for DULCE of vanc
- Xray: soft tissue swelling - dorsal hand to wrist, no gross evidence of osteomyelitis
- note plans for CT - follow up
- note consideration for possible digital amputation
- follow clinically
Chief Complaint
-: Fever, Cellulitis and Bacteremia
Subjective / Review of Systems
ongoing fevers - wild is lower
BP soft this AM while on HD
declining leukocytosis, L shift persists
a1c 6.3
03/06 blood cultures no growth to date
note ortho hand plan for possible digit amputation
Vital Signs / Physical Exam
Vital Signs
Vital Signs
Temp Pulse Resp BP Pulse Ox
98.6 F 69 17 94/42 99
03/07/24 07:50 03/07/24 06:00 03/07/24 06:00 03/07/24 06:00 03/07/24 07:19
Physical Exam
Constitutional: No Acute Distress and Obese
Cardiovascular: Regular Rate and S1/S2; Negative Murmur (room is loud with HD machine being cleaned, difficult to ascultate) or Rub
Pulmonary: Clear and Symmetric; Negative Wheezes or Rales
Gastrointestinal: Soft, Non Tender, Non Distended and Normal Bowel Sounds
Extremities: Other (right third digit swollen, red, some necrotic tissue at the tip of the digit)
Skin: Warm and Dry; Negative Rash or Jaundice
Objective Data
Lab Data
Lab Results
03/06/24 04:17
03/06/24 04:17
Estimated Creat Clear 23 ml/min 03/06/24 04:17
Lactic Acid Cancelled 03/05/24 23:00
Total Bilirubin 0.8 mg/dl (0.2-1.3) 03/06/24 04:17
AST 22 U/L (17-59) 03/06/24 04:17
ALT 15 U/L (0-50) 03/06/24 04:17
Alkaline Phosphatase 129 U/L (38-126) H 03/06/24 04:17
Most recent labs reviewed.
Micro Results:
03/05/24 18:49 Blood Culture - Preliminary
Blood/Venous Staph aureus MRSA
Gram Stain - Final
03/05/24 18:49 Blood Culture - Preliminary
Blood/Venous Staph aureus MRSA
Gram Stain - Final
03/07/24 08:08 Blood Culture - Pending
Blood/Venous
03/06/24 19:50 Blood Culture - Pending
Blood/Venous
03/06/24 16:58 Blood Culture - Pending
Blood/Venous
03/06/24 16:11 Blood Culture - Pending
Blood/Venous
03/05/24 18:50 Influenza Types A & B ([facility]) - Final
Nasal Swab Negative for Influenza A & B, NAAT
Negative results must be combined with clinical observations
and patient history.
Nucleic Acid Amplification test (NAAT)performed on the
[employer] platform.
[2024-03-07] MEDS: RETACRIT 10000 UNITS IV (09:29)
--- NOTE | 2024-03-07 10:28 | W.PN.UPDATE ---
Update Note
Progress Note Update
dialysis line came out of fistula during HD with significant blood loss pooling onto bed and floor
compression held; krystal bandage applied
will check stat H/H and type and screen
given degree of blood loss will transfuse 1 unit
BP low 80's; patient states he is feeling okay. wants to use bathroom; explained needs to lay still during HD
Vascular surgery aware; will call if significant blood loss despite compression
Nephrology aware and was at bedside assessing patient
--- NOTE | 2024-03-07 10:31 | RR ---
A Rapid Response was called on this patient, please see Rapid Response form.
This RN was alerted pt was bleeding during HD. Upon entering the room pt with large pool of blood in the bed and large pool of blood underneath the bed. HD RN reports HD catheter fell out. HD RN and this RN applied direct pressure, blood noted to be
spurting out of site. Rapid response called. Pt drowsy but arousable. POWDER PRESS OPERATOR and Dr. Kwon and Dr. Nguyễn at bedside. Quick clot, tegaderm, and krystal wrap applied approx. ten minutes- bleeding resolved at this time. Pt now for labs and blood
transfusion. Phlebotomy and IVT at bedside. HD RN initiated treatment again.
[2024-03-07] MEDS: LOW STRENGTH ASPIRIN PO (11:21)
[2024-03-07] MEDS: COLACE PO ×2 (11:21→20:40)
[2024-03-07] MEDS: ATIVAN PO (11:21)
[2024-03-07] MEDS: MIRALAX PO (11:21)
[2024-03-07] MEDS: PERIDEX 0.12% ORAL RINSE PO (11:21)
[2024-03-07] MEDS: FEOSOL PO (11:21)
[2024-03-07] MEDS: VITAMIN C PO (11:22)
[2024-03-07] MEDS: PROZAC PO ×2 (11:22)
[2024-03-07] MEDS: PROTONIX PO (11:22)
[2024-03-07] MEDS: VANCOCIN 200 IV (11:28)
[2024-03-07 12:21] LABS: Glucose - Point of Care 136 mg/dl (70-99)
--- NOTE | 2024-03-07 12:30 | W.PN.CD ---
Today's Communication / Plan
-
JHOAN tomorrow
Impression / Plan
-
53-year-old Romanian-speaking male with tracheostomy, end-stage renal disease on hemodialysis, PAD status post right BKA, hypertension, GERD, prior cardiac arrest, prior PEG tube, hypothyroidism, obesity and anemia of chronic disease who presented
with syncope. Further workup revealed sepsis and MRSA bacteremia. TTE showed a possible vegetation on the NCC of the AV, concerning for possible vegetation.
Bacteremia, MRSA
-MRSA in 1 bottle of blood cultures, second bottle pending
-Echodensity on NCC of aortic valve
-ID following
- JHOAN now March 08, 2024 given disrupted HD and significant blood loss
Right middle finger injury
-No osteomyelitis on CXR
-Early necrosis with poor vascularity per Ortho
-MRI ordered for further consideration of operative intervention however if this is unable to be completed due to body habitus
Syncope
-This was likely in the setting of hypotension/sepsis
Hypertension
-Carvedilol on hold in the setting of hypotension
Tracheostomy
ESRD on HD Tuesday, Tuesday, Tuesday, nephrology following
Prior DVT, on apixaban 2.5 mg twice daily
Type 2 diabetes mellitus, HbA1c 6.3%
PAD s/p right BKA
Anemia of chronic disease, on iron
Physical Exam
Vital Signs/Labs
Vital Signs
Temp Pulse Resp BP Pulse Ox
96.6 F L 75 15 111/34 99
03/07/24 11:20 03/07/24 12:00 03/07/24 12:00 03/07/24 11:50 03/07/24 11:30
03/06/24 03/07/24 03/08/24
06:59 06:59 06:59
Actual Weight 302 lb 11.115 oz 301 lb 13.005 oz
03/06/24 04:17
LAB Results
03/05/24
18:49
Troponin I 0.028
Physical Exam
Constitutional: No acute distress
Cardiovascular: Rhythm & rate is regular
Respiratory: Respiratory effort normal and Lungs clear to auscul. (decreased b/s )
GI: Soft
Neuro/Psych: Alert and Oriented
Data Reviewed
-
Date of Service: March 07, 2024
EKG: Tracing Personally Visualized and interpreted (sr)
Echo: Tracing Personally Visualized and interpreted and Report Reviewed by me
Labs: Labs Reviewed by me
--- NOTE | 2024-03-07 12:51 | W.PN.UPDATE ---
Update Note
Progress Note Update
Pending CT scan to be completed today; will update recs pending CT findings.
--- NOTE | 2024-03-07 13:14 | PTCARENOTE ---
Addendum entered by Diana Martinez 03/07/24 14:00:
Call received from blood bank- ordered to stop infusion and return blood to lab. Float RN to bring blood to lab.
Addendum entered by Diana Martinez 03/07/24 13:55:
New IV site obtained, blood resumed. Pt tolerating well.
Addendum entered by Diana Martinez 03/07/24 13:33:
Pt c/o sudden and intense pain at IV site. Blood transfusion paused- awaiting arrival of IVT.
Original Note:
Dr. Kwon at bedside, Blood Consent obtained. Unit of blood initiated per orders, see TAR.
--- NOTE | 2024-03-07 15:05 | PTCARENOTE ---
Addendum entered by Diana Martinez 03/07/24 16:34:
Per IRBRITTANIE MD- femoral line is okay to use. Card sent down to lab for new unit of blood.
Original Note:
IRAD at bedside to place a central line.
[2024-03-07 16:01] LABS: Hemoglobin 7.2 g/dL (13.0-18.0)
--- NOTE | 2024-03-07 16:40 | PTCARENOTE ---
LATE ENTRY- Pt is still awaiting CT of hand. Spoke with CT Scan Carlo and informed her of events occurring throughout the day. Pt is still for another unit of blood. Dr. Kwon also aware of events.
[2024-03-07 16:47] LABS: Glucose - Point of Care 132 mg/dl (70-99)
--- NOTE | 2024-03-07 17:20 | PTCARENOTE ---
Addendum entered by Diana Martinez 03/07/24 17:34:
PRN Midodrine given- see MAR.
Original Note:
Unit of blood infusing, pt tolerating well. Hypotensive with SBP in the 80's. Dr. Kwon notified via TT.
[2024-03-07] MEDS: LIPITOR 60 MG PO (17:28)
[2024-03-07] MEDS: NEPHROCAP 1 CAPSULE PO (17:28)
--- NOTE | 2024-03-07 19:23 | PTCARENOTE ---
Unit of blood completed. BP improved at this time. Report to shift foreman RN.
[2024-03-07] MEDS: XALATAN OPHTHALMIC SOLUTION 1 DROP LEFT EYE (20:39)
[2024-03-07] MEDS: ATIVAN 0.5 MG PO (20:39)
[2024-03-07] MEDS: MELATONIN 5 MG PO (20:39)
[2024-03-07] MEDS: PERIDEX 0.12% ORAL RINSE 15 ML PO (20:39)
[2024-03-07] MEDS: SOLU-CORTEF 200 MG IV (20:58)
[2024-03-07] MEDS: BENADRYL 50 MG IV (20:58)
[2024-03-07 21:39] LABS: Glucose - Point of Care 130 mg/dl (70-99)
[2024-03-07] MEDS: LANTUS 0.209999999999999992 UNITS SC (22:02)
[2024-03-07 22:40] LABS: Hemoglobin 7.6 g/dL (13.0-18.0)
[2024-03-08] VITALS (25 sets, daily range): BP systolic 40–130; BP diastolic 25–87
--- NOTE | 2024-03-08 | PTCARENOTE ---
Assumed care of patient at 1900, nursing assessment as documented. Assessed via language line and updated on POC. Patient remains on T-Collar 5L 28%, dressing changed around trach site, suctioned for small amount of white secretions, sats 97-100%.
H&H drawn and sent to lab. Patient premedicated for CT with IV contrast - see MAR, taken to and from CT without difficulty. Right femoral T/L central line patent and in place. Call vincent within reach, VSS, continue with current care plan.
[2024-03-08 04:24] LABS: % Basophils 0.3 % (0-2); % Eosinophils 0.1 % (0-6); % Immature Granulocytes 0.8 % (0-0.5); % Lymphocytes 2.2 % (20.5-51.1); % Monocytes 2.6 % (1.7-9.3); Absolute Basophils 0.1 10^3/uL (0-0.2); Absolute Immature Granulocytes 0.1 10^3/uL (0-0.05); Absolute Lymphocytes 0.4 10^3/uL (1.2-3.4); Absolute Monocytes 0.5 10^3/uL (0.1-0.6); Absolute Neutrophils 17.3 10^3/uL (1.4-6.5); Hematocrit 24.5 % (39.0-52.0); Hemoglobin 7.6 g/dL (13.0-18.0); Mean Corpuscular Hgb 29.3 pg (27.0-31.0); Mean Corpuscular Volume 94.6 fL (80.0-94.0); Mean Platelet Volume 9.6 fL (7.4-10.4); Nucleated Red Blood Cells % 0 % (-); Platelet Count 267 10^3/uL (130-400); Red Blood Cell Count 2.59 10^6/uL (4.70-6.10); White Blood Cell Count 18.4 10^3/uL (4.8-10.8)
[2024-03-08 05:00] LABS: Blood Urea Nitrogen 37 mg/dl (9-20); Calcium 7.9 mg/dl (8.4-10.2); Carbon Dioxide 16 mmol/L (22-30); Chloride 97 mmol/L (98-107); Estimated Creatinine Clearance 21 ml/min; Glucose 158 mg/dl (70-99); Magnesium 1.7 mg/dl (1.6-2.3); Potassium 4.2 mmol/L (3.5-5.1); Sodium 133 mmol/L (135-145); eGFR 11.25
[2024-03-08] MEDS: SYNTHROID 75 MCG PO (05:41)
[2024-03-08] MEDS: NOVOLOG FLEXPEN-LOW RESISTANCE SC (06:09)
--- NOTE | 2024-03-08 07:33 | W.PN.CD ---
Today's Communication / Plan
-
JHOAN OK
ID following
We will sign off
Impression / Plan
-
Impression: 53-year-old Angolan-speaking male with tracheostomy, end-stage renal disease on hemodialysis, PAD status post right BKA, hypertension, GERD, prior cardiac arrest, prior PEG tube, hypothyroidism, obesity and anemia of chronic disease who
presented with syncope. Further workup revealed sepsis and MRSA bacteremia. TTE showed a possible vegetation on the NCC of the AV, concerning for possible vegetation.
Possible IE
-ID following
-JHOAN today -> does not show any vegetation
-defer to ID re length of ABx
Right middle finger injury - ortho
Syncope - This was likely in the setting of hypotension/sepsis
Hypertension- Carvedilol on hold in the setting of hypotension
Tracheostomy
ESRD on HD Tuesday, Tuesday, Tuesday, nephrology following
Prior DVT, on apixaban 2.5 mg twice daily
Type 2 diabetes mellitus, HbA1c 6.3%
PAD s/p right BKA
Anemia of chronic disease, on iron
Dispo - we will sign off -> please call with questions
Subjective: he denies CP, palps, or dyspnea
Laboratory Data
03/07/24 03/08/24
22:29 04:12
Hgb 7.6 L 7.6 L
Creatinine 5.6 H*
Generic Name Dose Route Start Last Admin
Trade Name Freq PRN Reason Stop Dose Admin
Vancomycin HCl 1 each/ Device 0 mls @ 0 mls/hr 03/05/24 22:08
IV
PER PROTOCOL BARTOLO
Protocol
As Directed
Apixaban 2.5 mg 03/06/24 08:00 03/06/24 08:05
Apixaban (Eliquis) 2.5 Mg Tablet PO 04/03/24 07:59 Not Given
BID BARTOLO
Aspirin 81 mg 03/06/24 08:00 03/07/24 11:21
Aspirin 81 Mg Chewable Tablet PO 04/03/24 07:59 Not Given
DAILY BARTOLO
Atorvastatin Calcium 60 mg 03/06/24 18:00 03/07/24 17:28
Atorvastatin (Lipitor) 40 Mg Tablet PO 04/03/24 17:59 60 mg
QPM BARTOLO
Physical Exam
Vital Signs/Labs
Vital Signs
Temp Pulse Resp BP Pulse Ox
36.7 C 73 15 92/70 100
03/08/24 03:11 03/08/24 05:43 03/08/24 05:43 03/08/24 05:43 03/08/24 05:43
03/07/24 03/08/24 03/09/24
06:59 06:59 06:59
Actual Weight 301 lb 13.005 oz
03/08/24 04:12
Magnesium 1.7 mg/dl (1.6-2.3) 03/08/24 04:12
LAB Results
03/05/24
18:49
Troponin I 0.028
Physical Exam
Constitutional: No acute distress
EENT: Anicteric and Moist mucous membranes
Cardiovascular: Rhythm & rate is regular, Systolic murmur absent and Diastolic murmur absent
Respiratory: Respiratory effort normal, Lungs clear to auscul. and Crackles Absent
GI: Soft, Distention absent, Non tender and Normal bowel sounds
Neuro/Psych: Alert
Data Reviewed
-
Date of Service: March 08, 2024
[2024-03-08 07:49] LABS: Glucose - Point of Care 169 mg/dl (70-99)
--- NOTE | 2024-03-08 08:05 | W.PN.UPDATE ---
Update Note
Progress Note Update
NPO for JHOAN this am. CT scan obtained Dr Marino and will review. Finger unchanged so NPO and Dr Marino will take to OR later today.
--- NOTE | 2024-03-08 08:16 | W.PN.HOSP.TC ---
Today's Communication/Plan
-
NPO for JHOAN and OR
additional unit before OR
IV Vancomycin
Appreciate consultants
Assessment / Plan
Assessment / Plan
53-year-old male past medical history of ESRD on hemodialysis Tuesday, Tuesday, Tuesday, diabetes, PAD status post right BKA, hypertension, GERD, prior cardiac arrest, prior PEG tube, obstructive sleep apnea, DVT, hypothyroidism, insomnia,
depression, obesity, chronic constipation, chronic anemia, presenting for weakness while seen at HD. He had an ER visit day prior for syncope. He is found to have infected necrotic right third digit with MRSA bacteremia and possible endocarditis.
HEAD CT
CERVICAL SPINE CT
IMPRESSION:
1. No acute intracranial abnormality noted.
2. No acute fracture or subluxation of the cervical spine.
CXR
03/05/24
IMPRESSION:
No acute cardiopulmonary process.
CT UPPER EXTREMITY 03/08/24
FINDINGS/IMPRESSION:
Limited by patient positioning and finger flexion.
Diffuse subcutaneous edema about the hand, greatest at the level of the third finger. No discrete loculated fluid collection to confirm the presence of a soft tissue abscess. Tiny foci of cutaneous gas ventral to the third distal phalanx. An MRI
would be more sensitive for the evaluation of a soft tissue infection.
No osseous destructive changes. No acute fracture or dislocation.
Vascular calcifications.
PLAN:
# Sepsis (fever, leukocytosis, hypotension) unclear source likely due to right third finger paronychia,
# concern for tenosynovitis right middle finger with evidence of necrosis
# MRSA Bacteremia
-blood cultures + MRSA
-continue IV Vancomycin
-appreciate ortho and ID consults
-TTE with possible AV vegetation - plan for JHOAN today
-s/p CT with IV contrast - see results above
-Eliquis on hold
-plan for OR today
Acute on chronic anemia
Acute blood loss anemia post dislodgement of IV line during HD
-compression applied with stasis
-s/p 1 unit PRBC 03/07 and additional unit today pre-op
# Syncopal episode yesterday secondary to hypotension/sepsis
-CT head and C-spine shows no acute abnormalities
-Trop now negative x 3
ESRD on hemodialysis Tuesday, Tuesday, Tuesday
-Continue midodrine
-Nephrology consult appreciated
Type 2 diabetes
-Continue Lantus 21 units
-insulin sliding scale
PAD status post right BKA
-Continue aspirin, statin
Hyperlipidemia
-Continue Vascepa
Essential hypertension
-Hold Coreg due to hypotension
GERD
-Continue Protonix
History of prior cardiac arrest
Current tracheostomy
Prior PEG tube
Obstructive sleep apnea
History of DVT
-hold Eliquis for upcoming procedure
Hypothyroidism
-Continue levothyroxine
Anxiety/depression
-Continue bupropion, fluoxetine, Ativan
Insomnia
Obesity
Chronic anemia
-Continue iron sulfate
Chronic constipation
-Continue bowel regimen
Full code
DVT prophylaxis�Eliquis
Regular diet
Anticipated Discharge: > 48 hours
Subjective/Interval History
-
Date of Service: March 08, 2024
no new complaints
keeps covers over head
Objective Data
-
Labs:
Laboratory Results
03/07/24 03/08/24 03/08/24
22:29 04:12 04:12
WBC 18.4 H
Hgb 7.6 L 7.6 L Cancelled
Hct 24.5 L
Plt Count 267
Sodium 133 L
Potassium 4.2
Chloride 97 L
Carbon Dioxide 16 L
BUN 37 H
Creatinine 5.6 H*
Glucose 158 H
Calcium 7.9 L
03/08/24
10:00
WBC
Hgb Pending
Hct
Plt Count
Sodium
Potassium
Chloride
Carbon Dioxide
BUN
Creatinine
Glucose
Calcium
Vital Signs:
Vital Signs
Temp Pulse Resp BP Pulse Ox
97.8 F 73 15 92/70 100
03/08/24 07:15 03/08/24 05:43 03/08/24 05:43 03/08/24 05:43 03/08/24 05:43
I&O
03/07/24 03/08/24 03/09/24
06:59 06:59 06:59
Intake Total 300 / 300
Balance 300 / 300
Review of Systems
-
History Source: Patient
All other systems: Reviewed and negative
Physical Exam
-
General: No Apparent Distress
HEENT: Normocephalic, Atraumatic, Moist Mucous Membranes and Tracheostomy Collar
Respiratory: Clear to Auscultation
Cardiac: Regular Rhythm and S1/S2; Negative Murmur, Rub or Gallop
GI: Soft, Nontender, Nondistended, Normal Bowel Sounds and Peg Tube; Negative Organomegaly
Rectal: Deferred by Provider
Musculoskeletal: Other (right middle finger with necrotic nail and significant swelling; cannot extend finger; pain extending towards dorsal surface hand )
Skin: Negative Rash
Neuro: Awake, Alert and Nonfocal/Grossly Intact
Psych: Calm
Data Reviewed
-
Diagnostic Radiology: Report Reviewed by me
Labs: Labs Reviewed by me
--- NOTE | 2024-03-08 08:30 | PHA.VAN.FU ---
Vancomycin Assessment / Plan
- Assessment
Hemodialysis Schedule: MWF
Last Hemodialysis performed: Mon 03/07
WBC's are: Trending Up
In the past 24 hrs, patient has been: Afebrile
- Dosing Plan
Dosing by Level: Hold off on dosing today
- Monitoring Plan
Random Level: 03/09 prior to HD
- Follow Up
Pharmacy will continue to follow.
Vancomycin Follow UP
- -
Patient Age: 53
Patient Sex: Male
Vancomycin Day #: 4
Indication: Skin And Soft Tissue
Requesting Provider: Dr. Dominguez / Shoaib
Pertinent Antimicrobial Allergies:
Penicillins - Unknown
Height / Weight:
Height 5 ft 11 in
Actual Weight 136.9 kg
Pertinent Past Medical History: ESRD on HD MWF, DM2, R. BKA
- Vital Signs / Lab Results
Temp Pulse Resp BP Pulse Ox
97.8 F 73 15 92/70 100
03/08/24 07:15 03/08/24 05:43 03/08/24 05:43 03/08/24 05:43 03/08/24 05:43
Lab Results - Hematology
03/05/24 03/06/24 03/08/24
18:49 04:17 04:12
WBC 17.4 H 14.8 H 18.4 H
Lab Results - Chemistry
03/05/24 03/06/24 03/08/24
18:49 04:17 04:12
BUN 29 H 33 H 37 H
Creatinine 4.9 H* 5.2 H* 5.6 H*
Estimated Creat Clear 23 21
Albumin 3.5 3.2 L
03/05/24 03/05/24
18:50 23:00
Lactic Acid 1.9 Cancelled
Microbiology Results
03/07/24 08:08 Blood Culture - Preliminary
Blood/Venous No Growth in 24 hours- Final report to follow
03/05/24 18:49 Blood Culture - Preliminary
Blood/Venous Staph aureus MRSA
Gram Stain - Final
03/06/24 19:50 Blood Culture - Preliminary
Blood/Venous No Growth in 24 hours- Final report to follow
03/06/24 16:58 Blood Culture - Preliminary
Blood/Venous No Growth in 24 hours- Final report to follow
03/06/24 16:11 Blood Culture - Preliminary
Blood/Venous No Growth in 24 hours- Final report to follow
03/05/24 18:49 Blood Culture - Preliminary
Blood/Venous Staph aureus MRSA
Gram Stain - Final
Therapeutic Drug Monitoring
Random Vancomycin 17.6 ug/ml 03/06/24 04:17
[2024-03-08] MEDS: ProAmatine 2.5 MG PO ×2 (08:39→14:46)
[2024-03-08] MEDS: WELLBUTRIN SR (12 hour sustained release) 100 MG PO (08:39)
[2024-03-08] MEDS: PROTONIX 40 MG PO (08:39)
[2024-03-08] MEDS: LOW STRENGTH ASPIRIN 81 MG PO (08:39)
[2024-03-08] MEDS: COLACE 100 MG PO ×2 (08:39→21:55)
[2024-03-08] MEDS: TYLENOL 650 MG PO ×2 (08:39→15:43)
[2024-03-08] MEDS: PROZAC 40 MG PO (08:39)
[2024-03-08] MEDS: ATIVAN 0.5 MG PO ×2 (08:40→21:55)
[2024-03-08] MEDS: PERIDEX 0.12% ORAL RINSE 15 ML PO ×2 (08:40→21:55)
[2024-03-08] MEDS: PROZAC 10 MG PO (08:40)
[2024-03-08] MEDS: FEOSOL PO (08:41)
[2024-03-08] MEDS: VITAMIN C PO (08:41)
[2024-03-08] MEDS: MIRALAX PO (08:44)
--- NOTE | 2024-03-08 09:04 | W.PN.NEPH.PH ---
Today's Communication / Plan
-
HD tomorrow
Assessment/Plan
-
Assessment:
Sepsis (right third finger source?)
Syncopal episode
ESRD on HD MWF
T2DM
PAD s/p R BKA
DLD
HTN
GERD
Plan:
plan for HD tomorrow per usual MWF schedule
per ortho might need R middle finger amputation, planning for surgery today
for repeat transfusion today before surgery
AVF bleed on HD yesterday cut treatment short
-
-
Date of Service: March 08, 2024
CC / HPI / ROS
-
Chief Complaint:
End-stage renal disease
History of Present Illness:
ESRD Tuesday
Anemia worsening
Hemodynamically labile on midodrine support
Remains on IV vancomycin for finger osteomyelitis
Review of Systems:
no chest pain or sob
no fevers
Labs
-
Labs:
WBC 18.4 10^3/uL (4.8-10.8) H 03/08/24 04:12
RBC 2.59 10^6/uL (4.70-6.10) L 03/08/24 04:12
Hct 24.5 % (39.0-52.0) L 03/08/24 04:12
Plt Count 267 10^3/uL (130-400) 03/08/24 04:12
Sodium 133 mmol/L (135-145) L 03/08/24 04:12
Potassium 4.2 mmol/L (3.5-5.1) 03/08/24 04:12
Chloride 97 mmol/L (98-107) L 03/08/24 04:12
Carbon Dioxide 16 mmol/L (22-30) L 03/08/24 04:12
BUN 37 mg/dl (9-20) H 03/08/24 04:12
Creatinine 5.6 mg/dL (0.7-1.3) H* 03/08/24 04:12
eGFR 11.25 03/08/24 04:12
Glucose 158 mg/dl (70-99) H 03/08/24 04:12
Calcium 7.9 mg/dl (8.4-10.2) L 03/08/24 04:12
Albumin 3.2 g/dl (3.5-5.0) L 03/06/24 04:17
Physical Exam
-
Vital Signs:
Vital Signs
Temp Pulse Resp BP Pulse Ox
97.8 F 73 15 90/36 100
03/08/24 07:15 03/08/24 05:43 03/08/24 05:43 03/08/24 08:39 03/08/24 05:43
Cardiovascular:: Regular rate and rhythm
Respiratory:: Bilateral: Coarse
Lung Excursion:: Normal
Abdomen:: Nontender and Soft
Bowel Sounds:: Normal
Extremity Edema:: +1: Bilateral: and None: Right: (AKA)
[place] Catheter: No
[2024-03-08 12:45] LABS: Glucose - Point of Care 184 mg/dl (70-99)
[2024-03-08] MEDS: NOVOLOG FLEXPEN-LOW RESISTANCE 1 UNITS SC (13:00)
--- NOTE | 2024-03-08 13:26 | W.PN.ID1 ---
Date of Service
Date of Service: March 08, 2024
Today's Communication
continue vanc
pleased to see blood cultures clearing
Assessment / Plan
MRSA bacteremia
Right 3rd finger Paronychia and cellulitis
Right 3rd digit tenosynovitis
LUE AVF
Class III obesity
- repeat blood cultures 03/06 no growth to date
- source of bacteremia is the 3rd digit infection
- continue with vancomycin; appreciate pharmacy assistance
- duration pending clinical course
- would like to see pathology from the resection margin
- Xray: soft tissue swelling - dorsal hand to wrist, no gross evidence of osteomyelitis
- note plans for CT - follow up
- note consideration for possible digital amputation
- follow clinically
Chief Complaint
-: Fever, Cellulitis and Bacteremia
Subjective / Review of Systems
afebrile
bp mildly hypotensive today
increased leukocytosis
K normal
vanc DULCE 1
no vegetation on JHOAN
listening to music
Vital Signs / Physical Exam
Vital Signs
Vital Signs
Temp Pulse Resp BP Pulse Ox
97.7 F 70 15 90/36 98
03/08/24 11:30 03/08/24 12:00 03/08/24 12:00 03/08/24 08:39 03/08/24 13:04
Physical Exam
Constitutional: No Acute Distress, Chronically Ill and Non-toxic
Cardiovascular: Regular Rate and S1/S2; Negative Murmur or Rub
Pulmonary: Clear and Symmetric; Negative Wheezes or Rales
Gastrointestinal: Soft, Non Tender, Non Distended and Normal Bowel Sounds
Extremities: Other (finger with progression of necrosis to the DIP)
Skin: Warm and Dry; Negative Rash or Jaundice
Wound: Other (L sided fistulae no erythema, warmth tenderness or drainage; new tenderness over the right nonfunctional fistula)
Neurological: Awake
Objective Data
Lab Data
Lab Results
03/08/24 10:00
03/08/24 04:12
Estimated Creat Clear 21 ml/min 03/08/24 04:12
Lactic Acid Cancelled 03/05/24 23:00
Total Bilirubin 0.8 mg/dl (0.2-1.3) 03/06/24 04:17
AST 22 U/L (17-59) 03/06/24 04:17
ALT 15 U/L (0-50) 03/06/24 04:17
Alkaline Phosphatase 129 U/L (38-126) H 03/06/24 04:17
Most recent labs reviewed.
Micro Results:
03/05/24 18:49 Blood Culture - Final
Blood/Venous Staph aureus MRSA
Gram Stain - Final
03/05/24 18:49 Blood Culture - Final
Blood/Venous Staph aureus MRSA
Gram Stain - Final
03/07/24 08:08 Blood Culture - Preliminary
Blood/Venous No Growth in 24 hours- Final report to follow
03/06/24 19:50 Blood Culture - Preliminary
Blood/Venous No Growth in 24 hours- Final report to follow
03/06/24 16:58 Blood Culture - Preliminary
Blood/Venous No Growth in 24 hours- Final report to follow
03/06/24 16:11 Blood Culture - Preliminary
Blood/Venous No Growth in 24 hours- Final report to follow
03/05/24 18:50 Influenza Types A & B ([facility]) - Final
Nasal Swab Negative for Influenza A & B, NAAT
Negative results must be combined with clinical observations
and patient history.
Nucleic Acid Amplification test (NAAT)performed on the
[employer] platform.
Care Review
Plan reviewed with: Physician (Dr Jamila bragg text - requested path)
--- NOTE | 2024-03-08 16:40 | CM ---
Kinyarwanda speaking patient from [facility] with Hx ESRD on HD, trach with Dx sepsis, Acute blood loss anemia s/p transfusion. O2 5L 28% via trach collar. Plan JHOAN today. Plan OR today for right middle finger amputation. Receiving IV
Steroids, IV Abx. PT Eval pending.
CM following for d/c needs.
Received phone call from Paty Ivey Sh[employer] Packer (ph [phone]); provided clinical update as requested. She is available to assist with d/c planning.
Patient may need insurance auth through [facility] (new submission process) for rehab.
Plan watch for wound care needs, PT/OT needs post op.
Plan return to [facility] when medically ready.
[2024-03-08] MEDS: LIPITOR PO (17:07)
[2024-03-08] MEDS: NEPHROCAP PO (17:08)
[2024-03-08 17:19] LABS: Glucose - Point of Care 168 mg/dl (70-99)
--- NOTE | 2024-03-08 17:48 | PTCARENOTE ---
pt currently off floor. report given to or nurse and pt transported in bed to preop area. unit of prbcs almost completed, discussed with workers compensation claims examiner. pt has been npo except for meds since midnight.
[2024-03-08 18:17] LABS: Glucose - Point of Care 192 mg/dl (70-99)
--- NOTE | 2024-03-08 19:31 | W.IMMPOSTOP ---
Surgical Immed Post Op Note
-
Primary Surgeon: Jamila
Pre-op Diagnosis: Right middle finger necrosis, infection
Post-op Diagnosis: Same
Procedure Performed: Right middle finger ray amputation, I&D
Anesthesia Type: General
Specimen / Cultures: Superficial purulence from tendon sheath for cultures and amputated ray for pathology
Estimated Blood Loss: 2cc
Complications: None
Operative Findings:
- Purulence in the palm, flexor tendon sheath, extending dorsally.
- Purulence in the 3rd MCP joint.
- Necrosis of the middle finger to the proximal phalanx level.
- No gross evidence of osteomyelitis on the 3rd metacarpal. Therefore, 'clean' margin of amputation.
Plan:
- Keep dressing intact for 3-5 days
- Dressing change in 3-5 days and drain (x2) removal
- Remove sutures in 2-3 weeks
- Antibiotics per ID recommendations
--- NOTE | 2024-03-08 20:47 | PTCARENOTE ---
Addendum entered by Mali Cunningham 03/09/24 01:22:
Pt c/o itching all over. PRN dose atarax given per DEC.
Original Note:
Rec'd pt from [employer] [facility], on 8L O2. R forearm dressed with splint and krystal wrap, fingers warm. Pt oriented and talking on the phone to his . VSS.
[2024-03-08 21:17] LABS: Glucose - Point of Care 187 mg/dl (70-99)
[2024-03-08] MEDS: LANTUS 0.209999999999999992 UNITS SC (21:55)
[2024-03-08] MEDS: DILAUDID 0.25 MG IV (22:21)
[2024-03-08] MEDS: MELATONIN 5 MG PO (22:21)
[2024-03-08] MEDS: XALATAN OPHTHALMIC SOLUTION 1 DROP LEFT EYE (22:39)
[2024-03-09] VITALS (37 sets, daily range): BP systolic 54–147; BP diastolic 26–115
[2024-03-09] MEDS: ATARAX 25 MG PO (01:04)
[2024-03-09 05:21] LABS: % Basophils 0.2 % (0-2); % Immature Granulocytes 1.1 % (0-0.5); % Lymphocytes 2.6 % (20.5-51.1); % Monocytes 5.3 % (1.7-9.3); % Neutrophils 90.8 % (42.2-75.2); Absolute Basophils 0.1 10^3/uL (0-0.2); Absolute Immature Granulocytes 0.2 10^3/uL (0-0.05); Absolute Lymphocytes 0.5 10^3/uL (1.2-3.4); Absolute Monocytes 1.1 10^3/uL (0.1-0.6); Hematocrit 25.3 % (39.0-52.0); Hemoglobin 8.2 g/dL (13.0-18.0); Mean Corp Hgb Conc. 32.4 g/dL (33.0-37.0); Mean Corpuscular Hgb 29.6 pg (27.0-31.0); Mean Corpuscular Volume 91.3 fL (80.0-94.0); Mean Platelet Volume 9.6 fL (7.4-10.4); Nucleated Red Blood Cells % 0 % (-); Platelet Count 337 10^3/uL (130-400); Red Blood Cell Count 2.77 10^6/uL (4.70-6.10); Red Cell Dist. Width 15.4 % (11.5-14.5)
[2024-03-09 05:33] LABS: Vancomycin Random 15.9 ug/ml
--- NOTE | 2024-03-09 07:40 | PHA.VAN.FU ---
Vancomycin Assessment / Plan
- Assessment
Hemodialysis Schedule: MWF
Last Hemodialysis performed: 03/07
WBC's are: Trending Up
In the past 24 hrs, patient has been: Afebrile
- Assessment - Therapeutic Drug Monitoring
Random Level: pre-HD = 15.9
- Dosing Plan
Adjust Regimen to: Vanc 1000mg HD MWF
Will tentatively start scheduled dosing; however, patient may require further dose adjustment as may not fully be at steady state due to ESRD on HD
- Monitoring Plan
No level(s) ordered at this time: if remains admitted through the weekend, consider pre-HD level Mon
- Follow Up
Pharmacy will continue to follow.
Vancomycin Follow UP
- -
Patient Age: 53
Patient Sex: Male
Vancomycin Day #: 5
Indication: Skin And Soft Tissue
Requesting Provider: Dr. Dominguez / Shoaib
Pertinent Antimicrobial Allergies:
Penicillins - Unknown
Height / Weight:
Height 5 ft 11 in
Actual Weight 136.9 kg
Pertinent Past Medical History: ESRD on HD MWF, DM2, R. BKA
- Vital Signs / Lab Results
Temp Pulse Resp BP Pulse Ox
96.8 F L 61 11 105/36 98
03/09/24 03:27 03/09/24 06:00 03/09/24 06:00 03/09/24 06:00 03/09/24 06:00
Lab Results - Hematology
03/08/24 03/09/24
04:12 05:01
WBC 18.4 H 21.0 H
Lab Results - Chemistry
03/08/24
04:12
BUN 37 H
Creatinine 5.6 H*
Estimated Creat Clear 21
Microbiology Results
03/06/24 19:50 Blood Culture - Preliminary
Blood/Venous No Growth in 48 hours- Final report to follow
03/08/24 18:11 Gram Stain - Preliminary
Hand - Left
03/06/24 16:58 Blood Culture - Preliminary
Blood/Venous No Growth in 48 hours- Final report to follow
03/06/24 16:11 Blood Culture - Preliminary
Blood/Venous No Growth in 48 hours- Final report to follow
03/05/24 18:49 Blood Culture - Final
Blood/Venous Staph aureus MRSA
Gram Stain - Final
03/05/24 18:49 Blood Culture - Final
Blood/Venous Staph aureus MRSA
Gram Stain - Final
03/07/24 08:08 Blood Culture - Preliminary
Blood/Venous No Growth in 24 hours- Final report to follow
Therapeutic Drug Monitoring
Random Vancomycin 15.9 ug/ml 03/09/24 05:01
--- NOTE | 2024-03-09 07:48 | W.PN.HOSP.TC ---
Addendum entered and electronically signed by Maritza Kwon MD 03/09/24 09:47:
chronic hypoxic resp failure
-O2 with trach collar
hemorrhagic shock during AV fistula bleed
-given fluids and blood/ BP OK with [employer] midodrine
Original Note:
Today's Communication/Plan
-
IV Vancomycin
Post-op care
F/U with ortho when OK to resume Eliquis
HD per Renal
daughter updated daily
Assessment / Plan
Assessment / Plan
53-year-old male past medical history of ESRD on hemodialysis Tuesday, Tuesday, Tuesday, diabetes, PAD status post right BKA, hypertension, GERD, prior cardiac arrest, prior PEG tube, obstructive sleep apnea, DVT, hypothyroidism, insomnia,
depression, obesity, chronic constipation, chronic anemia, presenting for weakness while seen at HD. He had an ER visit day prior for syncope. He is found to have infected necrotic right third digit with MRSA bacteremia and possible endocarditis.
HEAD CT
CERVICAL SPINE CT
IMPRESSION:
1. No acute intracranial abnormality noted.
2. No acute fracture or subluxation of the cervical spine.
CXR
03/05/24
IMPRESSION:
No acute cardiopulmonary process.
CT UPPER EXTREMITY 03/07/24
FINDINGS/IMPRESSION:
Limited by patient positioning and finger flexion.
Diffuse subcutaneous edema about the hand, greatest at the level of the third finger. No discrete loculated fluid collection to confirm the presence of a soft tissue abscess. Tiny foci of cutaneous gas ventral to the third distal phalanx. An MRI
would be more sensitive for the evaluation of a soft tissue infection.
No osseous destructive changes. No acute fracture or dislocation.
Vascular calcifications.
OPERATIVE REPORT 03/08/24
Operative Findings:
- Purulence in the palm, flexor tendon sheath, extending dorsally.
- Purulence in the 3rd MCP joint.
- Necrosis of the middle finger to the proximal phalanx level.
- No gross evidence of osteomyelitis on the 3rd metacarpal. Therefore, 'clean' margin of amputation.
PLAN:
# Sepsis (fever, leukocytosis, hypotension) unclear source likely due to right third finger paronychia,
# tenosynovitis right middle finger with evidence of necrosis
# MRSA Bacteremia
-blood cultures + MRSA; cleared as of 03/06
-continue IV Vancomycin
-appreciate ortho and ID consults
-TTE with possible AV vegetation; s/p JHOAN on 03/08 without e/o endocarditis
-s/p CT with IV contrast - see results above
-Eliquis on hold
-s/p OR 03/08 - results above
-per Ortho:
- Keep dressing intact for 3-5 days
- Dressing change in 3-5 days and drain (x2) removal
- Remove sutures in 2-3 weeks
-increase in WBC likely stress response post OR
Acute on chronic anemia
Acute blood loss anemia post dislodgement of IV line during HD
-compression applied with stasis
-s/p 1 unit PRBC 03/07 and additional unit 03/08 pre-op
# Syncopal episode yesterday secondary to hypotension/sepsis
-CT head and C-spine shows no acute abnormalities
-Trop now negative x 3
ESRD on hemodialysis Tuesday, Tuesday, Tuesday
-Continue midodrine
-Nephrology consult appreciated
Type 2 diabetes
-Continue Lantus 21 units
-insulin sliding scale
PAD status post right BKA
-Continue aspirin, statin
Hyperlipidemia
-Continue Vascepa
Essential hypertension
-Hold Coreg due to hypotension
GERD
-Continue Protonix
History of prior cardiac arrest
Current tracheostomy
Prior PEG tube
Obstructive sleep apnea
History of DVT
-hold Eliquis, resume when OK with ortho
Hypothyroidism
-Continue levothyroxine
Anxiety/depression
-Continue bupropion, fluoxetine, Ativan
Insomnia
Obesity
Chronic anemia
-Continue iron sulfate
Chronic constipation
-Continue bowel regimen
Full code
DVT prophylaxis�Eliquis
Regular diet
Anticipated Discharge: > 48 hours
Subjective/Interval History
-
Date of Service: March 09, 2024
complains of being cold
no pain in hand
Objective Data
-
Labs:
Laboratory Results
03/09/24 03/09/24
05:01 07:00
WBC 21.0 H
Hgb 8.2 L
Hct 25.3 L
Plt Count 337 D
Sodium Pending
Potassium Pending
Chloride Pending
Carbon Dioxide Pending
Vital Signs:
Vital Signs
Temp Pulse Resp BP Pulse Ox
96.8 F L 61 11 105/36 98
03/09/24 03:27 03/09/24 06:00 03/09/24 06:00 03/09/24 06:00 03/09/24 06:00
I&O
03/08/24 03/09/24 03/10/24
06:59 06:59 06:59
Intake Total 300 / 300 50 / 50
Balance 300 / 300 50 / 50
Review of Systems
-
History Source: Patient
All other systems: Reviewed and negative
Physical Exam
-
General: No Apparent Distress
HEENT: Normocephalic, Atraumatic, Moist Mucous Membranes and Tracheostomy Collar
Respiratory: Clear to Auscultation
Cardiac: Regular Rhythm and S1/S2; Negative Murmur, Rub or Gallop
GI: Soft, Nontender, Nondistended, Normal Bowel Sounds and Peg Tube; Negative Organomegaly
Rectal: Deferred by Provider
Musculoskeletal: Other (right hand wrapped in surgical dressing/gauze - c/d/i)
Skin: Negative Rash
Neuro: Awake, Alert and Nonfocal/Grossly Intact
Psych: Calm
Data Reviewed
-
Diagnostic Radiology: Report Reviewed by me
Labs: Labs Reviewed by me
[2024-03-09 07:50] LABS: Glucose - Point of Care 241 mg/dl (70-99)
--- NOTE | 2024-03-09 08:09 | PN.CDI ---
CDI
- -
CDI:
Physician Documentation Request
Admit Date: 03/05/24 21:16
Dear Doctor Doyle,
Patient admitted for sepsis.
03/06 PCN: 'Sating mid to high 90's on TC, #6 Shiley, 5L at 28%. Pt repeatedly removing O2 and refusing to allow staff to replace it. Desats to mid 80's without O2.'
03/08 Case Management Note: 'O2 5L 28% via trach collar.'
Clarify which of the following accurately represents the patient's respiratory status:
Chronic hypoxic respiratory failure
Other
Additional information for Respiratory Failure:
Recognized criteria for Respiratory Failure (Source: [facility] Hospitalist Aug 2013)
ABGs: (1 or more) Symptoms Please indicate type if known
1. p)2 <60 or RA SPO2 <91% on RA 1. Tachypnea, SOB, dyspnea Hypoxic
2. pCO2 50 and pH <7.35 2. Use of accessory muscles Hypercapnic
3. pO2 decrease of pCO2 increase by 3. Pallor or cyanosis Hypoxic and Hypercapnic
10 mmHg from baseline if known 4. Anxiety or restlessness Unable to determine
5. Unable to speak in full sentences
Supplemental O2 of > 40% (5LPM) Intubation is not required
Use of terms such as suspected, likely, concern for, or probable (associated with a specific diagnosis that is being evaluated, monitored, or treated as if it exists) are acceptable and can be coded in the inpatient setting, when documented at the
time of discharge.
Thank you,
Erendira Daigle RN, BSN
CDI Specialist
Available via [place] text
Please use your independent medical judgment in providing your response.
--- NOTE | 2024-03-09 08:15 | PN.CDI ---
CDI
- -
CDI:
Physician Documentation Request
Admit Date: 03/05/24 21:16
Dear Doctor Doyle,
Patient admitted for sepsis.
03/07 Hemodialysis Note: 'Patient seen on HD, sbp 140 at current u/f'
03/07 Update Note: 'dialysis line came out of fistula during HD with significant blood loss pooling onto bed and floor...given degree of blood loss will transfuse 1 unit, BP low 80's'
03/07 PCN: 'Unit of blood infusing, pt tolerating well. Hypotensive with SBP in the 80's...PRN Midodrine given'
Please clarify which of the following is the most likely etiology of the above symptoms and treatment rendered:
Hemorrhagic shock
Hypovolemic shock
Hypotension
Other
Use of terms such as suspected, likely, concern for, or probable (associated with a specific diagnosis that is being evaluated, monitored, or treated as if it exists) are acceptable and can be coded in the inpatient setting, when documented at the
time of discharge.
Thank you,
Erendira Daigle RN, BSN
CDI Specialist
Available via [place] text
Please use your independent medical judgment in providing your response.
--- NOTE | 2024-03-09 08:17 | W.PN.ORTHO ---
Today's Communication / Plan
-
- Keep dressing intact for 3-5 days
- Dressing change in 3-5 days and drain (x2) removal
- Remove sutures in 2-3 weeks
- Antibiotics per ID recommendations
Assessment
.
Distal Motor Intact: Yes
Dressing:
Clean, dry and intact. Splint in place
Plan
.
Surgery / Date: 08 Mar 2024 L MD villalpando amputation, hand D&I
Activity:
Out of bed.
PT/OT
Subjective
.
.:
Patient resting comfortably.
Vital Signs and Labs
.
Vital Signs and Labs:
Lab Results
03/09/24 05:01
Temp Pulse Resp BP Pulse Ox
96.8 F L 61 11 105/36 98
03/09/24 03:27 03/09/24 06:00 03/09/24 06:00 03/09/24 06:00 03/09/24 06:00
--- NOTE | 2024-03-09 08:37 | PN.CDI ---
CDI
- -
CDI:
Physician Documentation Request
Admit Date: 03/05/24 21:16
Dear Doctor Doyle,
Patient admitted for sepsis.
03/07 Hemodialysis Note: 'Patient seen on HD, sbp 140 at current u/f'
03/07 Update Note: 'dialysis line came out of fistula during HD with significant blood loss pooling onto bed and floor...given degree of blood loss will transfuse 1 unit, BP low 80's'
03/07 PCN: 'Unit of blood infusing, pt tolerating well. Hypotensive with SBP in the 80's...PRN Midodrine given'
Selected Entries
03/07/24
10:39 03/07/24
10:56 03/07/24
12:32
Blood pressure 87/36 87/31 89/66
Please clarify which of the following is the most likely etiology of the above symptoms and treatment rendered:
Hemorrhagic shock
Hypovolemic shock
Hypotension
Other
Use of terms such as suspected, likely, concern for, or probable (associated with a specific diagnosis that is being evaluated, monitored, or treated as if it exists) are acceptable and can be coded in the inpatient setting, when documented at the
time of discharge.
Thank you,
Erendira Daigle RN, BSN
CDI Specialist
Available via [place] text
Please use your independent medical judgment in providing your response.
[2024-03-09] MEDS: NOVOLOG FLEXPEN-LOW RESISTANCE 2 UNITS SC (08:51)
[2024-03-09] MEDS: PERIDEX 0.12% ORAL RINSE 15 ML PO ×2 (08:51→21:42)
[2024-03-09] MEDS: MIRALAX 17 GRAMS PO (08:52)
[2024-03-09] MEDS: ATIVAN 0.5 MG PO ×2 (08:52→21:42)
[2024-03-09] MEDS: SYNTHROID 75 MCG PO (08:52)
[2024-03-09] MEDS: COLACE 100 MG PO ×2 (08:52→21:42)
[2024-03-09] MEDS: PROZAC 40 MG PO (08:52)
[2024-03-09] MEDS: FEOSOL 325 MG PO (08:52)
[2024-03-09] MEDS: VITAMIN C 250 MG PO (08:52)
[2024-03-09] MEDS: PROTONIX 40 MG PO (08:52)
[2024-03-09] MEDS: PROZAC 10 MG PO (08:52)
[2024-03-09] MEDS: LOW STRENGTH ASPIRIN 81 MG PO (08:52)
[2024-03-09] MEDS: NOVOLOG FLEXPEN-LOW RESISTANCE SC (08:55)
--- NOTE | 2024-03-09 10:32 | W.PN.ID1 ---
Date of Service
Date of Service: March 09, 2024
Today's Communication
vasc consult for tender right AVF
continue vanc - duration pending course
Assessment / Plan
MRSA bacteremia not sustained
Right 3rd finger Paronychia, cellulitis, proximal osteomyelitis - s/p amputation
LUE AVF
Class III obesity
- repeat blood cultures 03/06 no growth to date
- source of bacteremia is the 3rd digit infection
- note surgical findings 'Necrosis of the middle finger to the proximal phalanx level. No gross evidence of osteomyelitis on the 3rd metacarpal'
- markedly tender over the right, reportedly nonfunctional fisutla; L AVF being used for HD
- US of fistula
- consulted vascular sx
- continue with vancomycin; appreciate pharmacy assistance
- duration pending clinical course
- follow clinically
Chief Complaint
-: Cellulitis and Bacteremia
Subjective / Review of Systems
remains afebrile
bp stable this Am - improved compared to yesterday
post op increase of leukocytosis as expected
L shift improved
acidotic this am
vanc level at goal
repeat blood cultures no growth to date
s/p uncompliccated right 3rd digit ray amputation
Vital Signs / Physical Exam
Vital Signs
Vital Signs
Temp Pulse Resp BP Pulse Ox
97.6 F 61 11 105/36 98
03/09/24 07:05 03/09/24 06:00 03/09/24 06:00 03/09/24 06:00 03/09/24 06:00
Physical Exam
Constitutional: No Acute Distress
Cardiovascular: Regular Rate and S1/S2; Negative Murmur or Rub
Pulmonary: Clear and Symmetric; Negative Wheezes or Rales
Gastrointestinal: Soft, Non Tender, Non Distended and Normal Bowel Sounds
Extremities: Other (markedly tender over the right, AVF, I appreciate a thrill; no erythema, warmth or drainage)
Skin: Warm and Dry; Negative Rash or Jaundice
Wound: Other (right hand/arm in post op dressing, take down deferred to surgery)
Objective Data
Lab Data
Lab Results
03/09/24 05:01
Estimated Creat Clear 21 ml/min 03/08/24 04:12
Lactic Acid Cancelled 03/05/24 23:00
Total Bilirubin 0.8 mg/dl (0.2-1.3) 03/06/24 04:17
AST 22 U/L (17-59) 03/06/24 04:17
ALT 15 U/L (0-50) 03/06/24 04:17
Alkaline Phosphatase 129 U/L (38-126) H 03/06/24 04:17
Most recent labs reviewed.
Micro Results:
03/07/24 08:08 Blood Culture - Preliminary
Blood/Venous No Growth in 48 hours- Final report to follow
03/06/24 19:50 Blood Culture - Preliminary
Blood/Venous No Growth in 48 hours- Final report to follow
03/08/24 18:11 Wound Culture - Pending
Hand - Left Gram Stain - Preliminary
03/08/24 18:11 Anaerobic Culture - Pending
Hand - Left
03/06/24 16:58 Blood Culture - Preliminary
Blood/Venous No Growth in 48 hours- Final report to follow
03/06/24 16:11 Blood Culture - Preliminary
Blood/Venous No Growth in 48 hours- Final report to follow
03/05/24 18:49 Blood Culture - Final
Blood/Venous Staph aureus MRSA
Gram Stain - Final
03/05/24 18:49 Blood Culture - Final
Blood/Venous Staph aureus MRSA
Gram Stain - Final
03/05/24 18:50 Influenza Types A & B ([facility]) - Final
Nasal Swab Negative for Influenza A & B, NAAT
Negative results must be combined with clinical observations
and patient history.
Nucleic Acid Amplification test (NAAT)performed on the
[employer] platform.
Care Review
Plan reviewed with: Physician (Dr Kwon and Dr Alcala - rommel fistula on right)
--- NOTE | 2024-03-09 11:08 | CON.VAS ---
Addendum entered and electronically signed by Iraj Alcala III, MD 03/09/24 14:18:
Patient seen and examined with Yuki MARTINEZ. I agree with history/physical exam/assessment and plan.
Obese, trach'd
Polish speaking
LUE HD access
Old RUE AV fistula no longer in use
R BKA
MRSA bacteremia
Recent right digit gangrene and infection.
No pain over RUE or LUE access sites
Palp pulse in the old RUE access. No thrill
Dry dressing over left AV access. + thrill.
No erythema over HD access sites bilaterally
Left forearm/wrist/hand splinted and dressed
No evidence of infection at either HD access site
HD access duplex of the LUE reviewed - patent. No collections. No clear stenosis. Flow volumes acceptable.
Would obtain formal RUE arterial duplex along with WBI and digital waveforms to evaluate wound healing potential of the right hand.
Will follow along peripherally.
Call with questions
Iraj Alcala MD
Vascular Surgery
Original Note:
Consultation
Consultation Request
Date/Time Consultation Performed: 03/09/2024 1100
Requesting Provider: Shoaib OLEARY,Kyara
Performing Provider: Yuki Lobato, TELESALES AGENT-C for Iraj Alcala III, MD
Reason for Consultation: Concern for tenderness over RUE AVF
Medical History
-
Chief Complaint: Weakness
History of Present Illness:
This is a 53-year-old male with significant past medical history for ESRD on hemodialysis Tuesday, Tuesday, Tuesday, diabetes, PAD status post right BKA, hypertension, GERD, prior cardiac arrest, PEG tube, tracheostomy, obstructive sleep apnea, DVT,
hypothyroidism, insomnia, depression, obesity, and chronic anemia who presented to [facility] ED on 03/05/24 following a fall. Patient was subsequently admitted for leukocytosis and febrile with suspicion for infectious process, ultimately found to
be bacteremic. Infectious disease suspects right upper extremity third digit source of bacteremia and he is now status post right third finger amputation with orthopedics. Vascular surgery has been consulted for concern of right upper extremity AV
fistula tenderness. 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 He indicates only area of pain is at recent right hand surgical amputation site. He indicates his right upper extremity AV
fistula is no longer utilized due to what he was told is a blood clot. He does have a significant vascular history but cannot recall prior vascular surgeon to perform his bilateral AV fistula creation's or right BKA. He is postop day #1 from right
third digit amputation and currently has postoperative dressing from hand to antecubital area.
Past Medical History
Past Medical History: GERD, HTN, Hypothyroidism, IDDM, Renal Failure (HD MWF) and Other (cardiac arrest, AMY, DVT, insomnia, obesity, chronic anemia)
Past Surgical History: Other (R BKA, PEG tube, tracheostomy)
Social History
Alcohol: None
Drug: None
Living: Shelter
Allergies / Home Medications
Allergy/AdvReac Type Severity Reaction Status Date / Time
iodine Allergy SKIN Verified 03/07/24 08:24
PEELING
morphine Allergy Unknown Verified 03/05/24 17:49
Penicillins Allergy Unknown Verified 03/05/24 17:49
tetanus and diphtheria Allergy Unknown Verified 03/05/24 17:49
toxoids
�Medication �Instructions �Recorded �Confirmed �Type
acetaminophen 500 mg tablet 500 mg PO Q6HPRN PRN mild 07/22/23 03/05/24 History
pain/headaches
apixaban 2.5 mg tablet 2.5 mg PO BID Blood Clot 07/22/23 03/05/24 History
Prevention/Tx
ascorbic acid (vitamin C) 250 mg 250 mg PO DAILY Supplement 07/22/23 03/05/24 History
tablet (Vitamin C)
aspirin 81 mg chewable tablet 81 mg PO DAILY Blood Clot 07/22/23 03/05/24 History
Prevention/Tx
atorvastatin 40 mg tablet 60 mg PO QPM High Cholesterol 07/22/23 03/05/24 History
bisacodyl 10 mg rectal suppository 10 mg MS DAILYPRN PRN constipation 07/22/23 03/05/24 History
(Dulcolax (bisacodyl))
carvedilol 3.125 mg tablet 3.125 mg PO BID Heart 07/22/23 03/05/24 History
Disease/Condition
chlorhexidine gluconate 0.12 % 15 ml mucous membrane BID Infection 07/22/23 03/05/24 History
mouthwash (Peridex)
diphenhydramine HCl 25 mg capsule 25 mg PO Q8HPRN PRN allergies 07/22/23 03/05/24 History
docusate sodium 100 mg capsule 100 mg PO BID Constipation 07/22/23 03/05/24 History
hydroxyzine HCl 25 mg tablet 25 mg PO [id number] PRN itching 07/22/23 03/05/24 History
icosapent ethyl 1 gram capsule 2 g PO BID Heart Disease/Condition 07/22/23 03/05/24 History
(Vascepa)
insulin glargine 100 unit/mL (3 21 unit SC HS Diabetes 07/22/23 03/05/24 History
mL) subcutaneous pen (Lantus
Solostar U-100 Insulin)
levothyroxine 75 mcg tablet 75 mcg PO DAILY Thyroid 07/22/23 03/05/24 History
lidocaine 5 % topical cream 1 applic topical Q8HPRN PRN AVF 07/22/23 03/05/24 History
site
melatonin 5 mg tablet 5 mg PO HS Sleep 07/22/23 03/05/24 History
pantoprazole 40 mg tablet,delayed 40 mg PO DAILY Gastrointestinal 07/22/23 03/05/24 History
release Issue
sorbitol 70 % solution 30 ml PO DAILYPRN PRN if no BM x 3 07/22/23 03/05/24 History
days
vitamin B complex and vitamin C 1 cap PO QPM Supplement 07/22/23 03/05/24 History
no.20-folic acid 1 mg capsule
(Renal Caps)
polyethylene glycol 3350 17 gram 17 g PO DAILY constipation 09/21/23 03/05/24 History
oral powder packet (Miralax)
acetaminophen 325 mg tablet 650 mg PO Q6HPRN PRN mild 11/02/23 03/05/24 History
pain/temp>100.4
midodrine 2.5 mg tablet 2.5 mg PO Q12H PRN sbp<90 11/05/23 03/05/24 History
bupropion HCl 100 mg tablet,12 hr 100 mg PO Q48H Mental 03/04/24 03/05/24 History
sustained-release (Wellbutrin SR) Health/Anxiety
dextran 70-hypromellose eye drops 1 drp BOTH EYES Q8HPRN PRN dry eyes 03/04/24 03/05/24 History
in a dropperette (Artificial Tears
(PF) drops in a dropperette)
ferrous sulfate 325 mg (65 mg 325 mg PO DAILY Supplement 03/04/24 03/05/24 History
iron) tablet
fluoxetine 10 mg capsule 10 mg PO DAILY Mental 03/04/24 03/05/24 History
Health/Anxiety
fluoxetine 40 mg capsule 40 mg PO DAILY Mental 03/04/24 03/05/24 History
Health/Anxiety
guaifenesin 100 mg/5 mL oral syrup 200 mg PO Q4H PRN congestion 03/04/24 03/05/24 History
insulin aspart U-100 100 unit/mL 0 sliding scale dose SC 03/04/24 03/05/24 History
subcutaneous solution (Novolog DIRECTED Diabetes
U-100 Insulin aspart)
latanoprost 0.005 % eye drops 1 drp LEFT EYE HS Eye Condition 03/04/24 03/05/24 History
lorazepam 0.5 mg tablet 0.5 mg PO BID Mental Health/Anxiety 03/04/24 03/05/24 History
Review of Systems
-
History Source: Patient
All other systems: Negative unless noted
Musculoskeletal: Reports Other (Reports pain at postoperative site at right hand)
Physical Exam
Vital Signs
Temp Pulse Resp BP Pulse Ox
97.6 F 61 11 105/36 98
03/09/24 07:05 03/09/24 06:00 03/09/24 06:00 03/09/24 06:00 03/09/24 06:00
Lab Results
03/09/24 05:01
Troponin I 0.028 ng/ml 03/05/24 18:49
Physical Exam
General: No Apparent Distress and Comfortable
HEENT: Normocephalic, Anicteric and Tracheotomy
Respiratory: Non Labored Respirations
Cardiac: Negative JVD
GI: Soft and Other (rotund)
Musculoskeletal: No Edema and Other (Left upper extremity AVF with no area of tenderness, post HD dressing CDI, right upper extremity AV fistula with pulsatility patient denies any tenderness with palpation, no area of erythema or warmth at
surrounding skin over AV fistula)
Skin: Warm, Dry and Other (Right hand postoperative dressing clean dry and intact)
Neuro: Awake and Alert
Assessment / Plan
-
Assessment: 53-year-old male with multiple medical comorbidities, currently admitted for bacteremia suspected source cellulitic right hand third digit now status post amputation. Today noted by infectious disease to have tenderness over right upper
extremity AV fistula, which is not utilized for HD, concerning for possible spread of cellulitis.
Plan:
Patient currently denies tenderness or pain at right upper extremity AV fistula, additionally no physical exam findings supporting concern for infectious spread to AV fistula such as erythema, warmness, or open skin. We would not recommend at this
time any additional imaging of AV fistula to evaluate for infection.
Unfortunately, due to postoperative dressing physical exam of the right hand is limited, would recommend obtaining arterial duplex of right upper extremity with brachial index and digital waveforms to assess adequate blood flow for healing of
amputation site within the following days once patient is less tender following surgery
I performed this shared service with the attending. I evaluated the patient [id number] and have entered clinical documentation as shown in the encounter note. I performed the following component(s): history and physical exam. Note that medical
decision making is not final until attested by vascular attending.
Data Reviewed
-
CT Scan: Report Reviewed by me
Labs: Labs Reviewed by me and Discussed with Physician
[2024-03-09 11:35] LABS: Glucose - Point of Care 267 mg/dl (70-99)
[2024-03-09] MEDS: NOVOLOG FLEXPEN-LOW RESISTANCE 3 UNITS SC (13:01)
--- NOTE | 2024-03-09 16:08 | CM ---
Georgian speaking patient from [facility] with Hx ESRD on HD, trach with Dx sepsis, Acute blood loss anemia s/p right middle finger amputation. O2 5L 28% via trach collar. Receiving IV Vanco. PICC line right groin. Contact
Precautions. PT Eval pending.
Ortho note 03/09: Dressing change in 3-5 days and drain (x2) removal
Script received from Dr Cramer for IV Vanco with HD MWF for MRSA Bacteremia.
Spoke with Adm Niurkas [facility]; referral sent via [facility] with script for IV Abx during HD. Another request made for patient's prior level of function- she will ask the evening switchboard operator supervisor to call back with that information.
Plan watch for wound care needs, PT/OT needs post op.
Plan return to [facility] when medically ready.
[2024-03-09] MEDS: LIPITOR 60 MG PO (16:32)
[2024-03-09] MEDS: ProAmatine 10 MG PO (16:33)
[2024-03-09] MEDS: NEPHROCAP 1 CAPSULE PO (16:33)
--- NOTE | 2024-03-09 16:59 | W.PN.NEPH.HD ---
Assessment
-
-doing well on HD
-no complaints
Progress Note - Hemodialysis
-
Date of Service: March 09, 2024
Duration: 30 minutes and 3 hours
Potassium Bath: 3
Calcium Bath: 2.5
Opti-Dialyzer: 160
Ultrafiltration: Other
Blood Flow: 400
Dialysate Flow: 600
--- NOTE | 2024-03-09 17:19 | PTCARENOTE ---
assessment as charted. pt currently recieving hemodialysis, premedicated with midodrine per order. pt suctioned x 2 this shift for small amt white secretions. sats in high 90s on 28% trach collar. right arm krystal wrapintact with no draianage. sinus
rythym on monitor.
[2024-03-09] MEDS: NOVOLOG FLEXPEN-LOW RESISTANCE 1 UNITS SC (17:57)
[2024-03-09 18:05] LABS: Glucose - Point of Care 196 mg/dl (70-99)
[2024-03-09] MEDS: RETACRIT 10000 UNITS IV (18:22)
[2024-03-09] MEDS: FERRLECIT 125 MG IV (18:22)
[2024-03-09] MEDS: MANNITOL 12.5 GRAMS IV (18:22)
[2024-03-09 18:46] LABS: Carbon Dioxide 19 mmol/L (22-30); Chloride 95 mmol/L (98-107); Potassium 4.1 mmol/L (3.5-5.1); Sodium 132 mmol/L (135-145)
[2024-03-09] MEDS: VANCOCIN 200 IV (19:56)
[2024-03-09 21:04] LABS: Glucose - Point of Care 174 mg/dl (70-99)
[2024-03-09] MEDS: MELATONIN 5 MG PO (21:42)
[2024-03-09] MEDS: LANTUS 0.209999999999999992 UNITS SC (21:43)
[2024-03-09] MEDS: XALATAN OPHTHALMIC SOLUTION 1 DROP LEFT EYE (23:17)
[2024-03-09] MEDS: TYLENOL 650 MG PO (23:17)
[2024-03-09] MEDS: BENADRYL 25 MG PO (23:19)
[2024-03-10] VITALS (13 sets, daily range): BP systolic 94–142; BP diastolic 26–99; PULSE 75; O2SAT 100; BMI 41.5
--- NOTE | 2024-03-10 01:04 | PTCARENOTE ---
Pt remains AAOx3, assessment as documented. Georgian speaking, but able to communicate basic needs in Greenlandic. Pt finished HD around 21:30. Medications taken post HD. Pt ate 100% of dinner tray. This RN suctioned pt x1 per pt request with improvement
in SaO2. Pt was able to clear some clear and white secretions independently as well. Call vincent within reach
[2024-03-10] MEDS: SYNTHROID 75 MCG PO (05:50)
[2024-03-10 07:42] LABS: Glucose - Point of Care 205 mg/dl (70-99)
--- NOTE | 2024-03-10 07:58 | PHA.VAN.FU ---
Vancomycin Assessment / Plan
- Assessment
Hemodialysis Schedule: MWF
WBC's are: Trending Up
In the past 24 hrs, patient has been: Afebrile
- Dosing Plan
Continue: PRN BY LEVEL WITH HD
- Monitoring Plan
No level(s) ordered at this time: CONSIDER FOR 03/12 PRE-HD
- Follow Up
Pharmacy will continue to follow.
Vancomycin Follow UP
- -
Patient Age: 53
Patient Sex: Male
Vancomycin Day #: 6
Indication: Skin And Soft Tissue
Requesting Provider: Dr. Dominguez / Shoaib
Pertinent Antimicrobial Allergies:
Penicillins - Unknown
Height / Weight:
Height 5 ft 11 in
Actual Weight 134.9 kg
Pertinent Past Medical History: ESRD on HD MWF, DM2, R. BKA
- Vital Signs / Lab Results
Temp Pulse Resp BP Pulse Ox
98.4 F 73 17 113/49 96
03/10/24 03:18 03/10/24 04:00 03/10/24 04:00 03/10/24 04:00 03/10/24 04:00
Lab Results - Hematology
03/08/24 03/09/24
04:12 05:01
WBC 18.4 H 21.0 H
Lab Results - Chemistry
03/08/24
04:12
BUN 37 H
Creatinine 5.6 H*
Estimated Creat Clear 21
Microbiology Results
03/08/24 18:11 Wound Culture - Preliminary
Hand - Left Staph aureus MRSA
Gram Stain - Preliminary
03/06/24 19:50 Blood Culture - Preliminary
Blood/Venous No Growth in 72 hours- Final report to follow
03/06/24 16:58 Blood Culture - Preliminary
Blood/Venous No Growth in 72 hours- Final report to follow
03/06/24 16:11 Blood Culture - Preliminary
Blood/Venous No Growth in 72 hours- Final report to follow
03/08/24 18:11 Anaerobic Culture - Preliminary
Hand - Left Culture pending. Anaerobic cultures are examined after 3
days incubation. Additional information to follow.
03/07/24 08:08 Blood Culture - Preliminary
Blood/Venous No Growth in 48 hours- Final report to follow
03/05/24 18:49 Blood Culture - Final
Blood/Venous Staph aureus MRSA
Gram Stain - Final
03/05/24 18:49 Blood Culture - Final
Blood/Venous Staph aureus MRSA
Gram Stain - Final
Therapeutic Drug Monitoring
Random Vancomycin 15.9 ug/ml 03/09/24 05:01
--- NOTE | 2024-03-10 08:15 | W.PN.HOSP.TC ---
Addendum entered and electronically signed by Maritza Kwon MD 03/10/24 08:34:
per ortho ok to resume Eliquis 2.5
Original Note:
Today's Communication/Plan
-
IV Vanc
Surgeons to change dressing and drain removal in 1-3 more days
Touching base with surgeons when can resume Eliquis
reorder PT/OT
Assessment / Plan
Assessment / Plan
53-year-old male past medical history of ESRD on hemodialysis Tuesday, Tuesday, Tuesday, diabetes, PAD status post right BKA, hypertension, GERD, prior cardiac arrest, prior PEG tube, obstructive sleep apnea, DVT, hypothyroidism, insomnia,
depression, obesity, chronic constipation, chronic anemia, presenting for weakness while seen at HD. He had an ER visit day prior for syncope. He is found to have infected necrotic right third digit with MRSA bacteremia now s/p amputation. JHOAN
confirms no e/o endocaritis.
HEAD CT
CERVICAL SPINE CT
IMPRESSION:
1. No acute intracranial abnormality noted.
2. No acute fracture or subluxation of the cervical spine.
CXR
03/05/24
IMPRESSION:
No acute cardiopulmonary process.
CT UPPER EXTREMITY 03/07/24
FINDINGS/IMPRESSION:
Limited by patient positioning and finger flexion.
Diffuse subcutaneous edema about the hand, greatest at the level of the third finger. No discrete loculated fluid collection to confirm the presence of a soft tissue abscess. Tiny foci of cutaneous gas ventral to the third distal phalanx. An MRI
would be more sensitive for the evaluation of a soft tissue infection.
No osseous destructive changes. No acute fracture or dislocation.
Vascular calcifications.
OPERATIVE REPORT 03/08/24
Operative Findings:
- Purulence in the palm, flexor tendon sheath, extending dorsally.
- Purulence in the 3rd MCP joint.
- Necrosis of the middle finger to the proximal phalanx level.
- No gross evidence of osteomyelitis on the 3rd metacarpal. Therefore, 'clean' margin of amputation.
PLAN:
# Sepsis (fever, leukocytosis, hypotension) unclear source likely due to right third finger paronychia,
# tenosynovitis right middle finger with evidence of necrosis
# MRSA Bacteremia
-blood cultures + MRSA; cleared as of 03/06
-continue IV Vancomycin; per ID will continue on 6 week course
-appreciate ortho and ID consults
-TTE with possible AV vegetation; s/p JHOAN on 03/08 without e/o endocarditis
-s/p CT with IV contrast - see results above
-Eliquis on hold
-s/p OR 03/08 - results above
-per Ortho:
- Keep dressing intact for 3-5 days
- Dressing change in 3-5 days and drain (x2) removal
- Remove sutures in 2-3 weeks
-increase in WBC likely stress response post OR - repeat today
Acute on chronic anemia
Acute blood loss anemia post dislodgement of IV line during HD
-compression applied with stasis
-s/p 1 unit PRBC 03/07 and additional unit 03/08 pre-op
# Syncopal episode yesterday secondary to hypotension/sepsis
-CT head and C-spine shows no acute abnormalities
-Trop now negative x 3
Itching
-patient states this happens after iodine and anesthesia
-he's requesting wipes; will apply lotion after
-benadryl IV PRN
ESRD on hemodialysis Tuesday, Tuesday, Tuesday
-Nephrology consult appreciated
Chronic Hypotension
-continue midodrine PRN
Type 2 diabetes
-Continue Lantus 21 units
-insulin sliding scale
PAD status post right BKA
-Continue aspirin, statin
Hyperlipidemia
-Continue Vascepa
Essential hypertension
-Hold Coreg due to hypotension - BP remain low 100's-110's
GERD
-Continue Protonix
History of prior cardiac arrest
Current tracheostomy
Prior PEG tube
Obstructive sleep apnea
History of DVT
-hold Eliquis, resume when OK with ortho
Hypothyroidism
-Continue levothyroxine
Anxiety/depression
-Continue bupropion, fluoxetine, Ativan
Insomnia
Obesity
Chronic anemia
-Continue iron sulfate
Chronic constipation
-Continue bowel regimen
Full code
DVT prophylaxis�Eliquis
Regular diet
Anticipated Discharge: 24 - 48 hours
Subjective/Interval History
-
Date of Service: March 10, 2024
feeling itchy
states this happens after iodine
he is requesting a bath and lotion, also requesting benadryl
Objective Data
-
Vital Signs:
Vital Signs
Temp Pulse Resp BP Pulse Ox
98.4 F 73 17 113/49 96
03/10/24 03:18 03/10/24 04:00 03/10/24 04:00 03/10/24 04:00 03/10/24 04:00
I&O
03/09/24 03/10/24 03/11/24
06:59 06:59 06:59
Intake Total 300 / 300 120 / 120
Balance 300 / 300 120 / 120
Review of Systems
-
History Source: Patient
All other systems: Reviewed and negative
Physical Exam
-
General: No Apparent Distress
HEENT: Normocephalic, Atraumatic, Moist Mucous Membranes and Tracheostomy Collar
Respiratory: Clear to Auscultation
Cardiac: Regular Rhythm and S1/S2; Negative Murmur, Rub or Gallop
GI: Soft, Nontender, Nondistended, Normal Bowel Sounds and Peg Tube; Negative Organomegaly
Rectal: Deferred by Provider
Musculoskeletal: Other (right hand wrapped in surgical dressing/gauze - c/d/i; right BKA)
Skin: Negative Rash
Neuro: Awake, Alert and Nonfocal/Grossly Intact
Psych: Calm
Data Reviewed
-
Diagnostic Radiology: Report Reviewed by me
Labs: Labs Reviewed by me
[2024-03-10] MEDS: MIRALAX PO (08:32)
[2024-03-10] MEDS: COLACE PO (08:32)
[2024-03-10] MEDS: PERIDEX 0.12% ORAL RINSE 15 ML PO ×2 (10:17→21:00)
[2024-03-10] MEDS: NOVOLOG FLEXPEN-LOW RESISTANCE 2 UNITS SC ×2 (10:17→12:34)
[2024-03-10] MEDS: PROTONIX 40 MG PO (10:18)
[2024-03-10] MEDS: ELIQUIS 2.5 MG PO ×2 (10:18→21:01)
[2024-03-10] MEDS: PROZAC 40 MG PO (10:18)
[2024-03-10] MEDS: LOW STRENGTH ASPIRIN 81 MG PO (10:18)
[2024-03-10] MEDS: BENADRYL 25 MG IV ×2 (10:18→21:01)
[2024-03-10] MEDS: ATIVAN 0.5 MG PO ×2 (10:18→21:01)
[2024-03-10] MEDS: VITAMIN C 250 MG PO (10:19)
[2024-03-10] MEDS: FEOSOL 325 MG PO (10:19)
[2024-03-10] MEDS: PROZAC 10 MG PO (10:19)
[2024-03-10] MEDS: WELLBUTRIN SR (12 hour sustained release) 100 MG PO (10:19)
--- NOTE | 2024-03-10 10:20 | W.PN.ID1 ---
Date of Service
Date of Service: March 10, 2024
Today's Communication
- US of fistula was done on the left which was not symptomatic; reordered for the symptomatic side
plan 6 weeks of IV vancomycin
Assessment / Plan
MRSA bacteremia
Possible endocarditis
Right 3rd finger Paronychia, cellulitis, proximal osteomyelitis - s/p amputation
LUE AVF
Class III obesity
- repeat blood cultures 03/06 no growth to date
- source of bacteremia is the 3rd digit infection
- note surgical findings 'Necrosis of the middle finger to the proximal phalanx level. No gross evidence of osteomyelitis on the 3rd metacarpal'
- markedly tender over the right, reportedly nonfunctional fisutla; L AVF being used for HD
- US of fistula was done on the left which was not symptomatic; reordered for the symptomatic side
- appreciate vascular sx input
- continue with vancomycin; appreciate pharmacy assistance
- duration will be 6 weeks of IV vancomycin
- follow clinically
Chief Complaint
-: Cellulitis and Bacteremia
Subjective / Review of Systems
afebrile
bp stable
labs pending this am
blood cultures have cleared
US was done on the left side rather than the symptomatic right side
patient reports there was pain in the R fistula yesterday - he's pleased it has resolved today
Vital Signs / Physical Exam
Vital Signs
Vital Signs
Temp Pulse Resp BP Pulse Ox
98.5 F 73 17 113/49 96
03/10/24 07:05 03/10/24 04:00 03/10/24 04:00 03/10/24 04:00 03/10/24 04:00
Physical Exam
Constitutional: No Acute Distress
Cardiovascular: Regular Rate and S1/S2; Negative Murmur or Rub
Pulmonary: Clear and Symmetric; Negative Wheezes or Rales
Gastrointestinal: Soft, Non Tender, Non Distended and Normal Bowel Sounds
Extremities: Other (both fistulae without erythema, no longer ternder)
Skin: Warm and Dry; Negative Rash or Jaundice
Objective Data
Lab Data
Estimated Creat Clear 21 ml/min 03/08/24 04:12
Lactic Acid Cancelled 03/05/24 23:00
Total Bilirubin 0.8 mg/dl (0.2-1.3) 03/06/24 04:17
AST 22 U/L (17-59) 03/06/24 04:17
ALT 15 U/L (0-50) 03/06/24 04:17
Alkaline Phosphatase 129 U/L (38-126) H 03/06/24 04:17
Most recent labs reviewed.
Micro Results:
03/08/24 18:11 Wound Culture - Preliminary
Hand - Left Staph aureus MRSA
Gram Stain - Preliminary
03/07/24 08:08 Blood Culture - Preliminary
Blood/Venous No Growth in 72 hours- Final report to follow
03/06/24 19:50 Blood Culture - Preliminary
Blood/Venous No Growth in 72 hours- Final report to follow
03/06/24 16:58 Blood Culture - Preliminary
Blood/Venous No Growth in 72 hours- Final report to follow
03/06/24 16:11 Blood Culture - Preliminary
Blood/Venous No Growth in 72 hours- Final report to follow
03/08/24 18:11 Anaerobic Culture - Preliminary
Hand - Left Culture pending. Anaerobic cultures are examined after 3
days incubation. Additional information to follow.
03/05/24 18:49 Blood Culture - Final
Blood/Venous Staph aureus MRSA
Gram Stain - Final
03/05/24 18:49 Blood Culture - Final
Blood/Venous Staph aureus MRSA
Gram Stain - Final
03/05/24 18:50 Influenza Types A & B ([facility]) - Final
Nasal Swab Negative for Influenza A & B, NAAT
Negative results must be combined with clinical observations
and patient history.
Nucleic Acid Amplification test (NAAT)performed on the
[employer] NOW platform.
[2024-03-10 10:28] LABS: % Basophils 0.7 % (0-2); % Eosinophils 1.5 % (0-6); % Immature Granulocytes 2.1 % (0-0.5); % Lymphocytes 8.8 % (20.5-51.1); % Monocytes 9.6 % (1.7-9.3); % Neutrophils 77.3 % (42.2-75.2); Absolute Basophils 0.1 10^3/uL (0-0.2); Absolute Eosinophils 0.2 10^3/uL (0-0.7); Absolute Immature Granulocytes 0.3 10^3/uL (0-0.05); Absolute Lymphocytes 1.1 10^3/uL (1.2-3.4); Absolute Monocytes 1.2 10^3/uL (0.1-0.6); Absolute Neutrophils 9.5 10^3/uL (1.4-6.5); Hematocrit 25.3 % (39.0-52.0); Mean Corp Hgb Conc. 31.6 g/dL (33.0-37.0); Mean Corpuscular Hgb 29.9 pg (27.0-31.0); Mean Corpuscular Volume 94.4 fL (80.0-94.0); Mean Platelet Volume 9.4 fL (7.4-10.4); Nucleated Red Blood Cells % 0.8 % (-); Platelet Count 305 10^3/uL (130-400); Red Blood Cell Count 2.68 10^6/uL (4.70-6.10); Red Cell Dist. Width 15.2 % (11.5-14.5); White Blood Cell Count 12.3 10^3/uL (4.8-10.8)
[2024-03-10 10:58] LABS: ALT (SGPT) 13 U/L (0-50); AST (SGOT) 26 U/L (17-59); Albumin 2.8 g/dl (3.5-5.0); Alkaline Phosphatase 109 U/L (38-126); Blood Urea Nitrogen 30 mg/dl (9-20); Calcium 7.2 mg/dl (8.4-10.2); Carbon Dioxide 28 mmol/L (22-30); Chloride 98 mmol/L (98-107); Estimated Creatinine Clearance 27 ml/min; Glucose 179 mg/dl (70-99); Potassium 3.6 mmol/L (3.5-5.1); Sodium 136 mmol/L (135-145); Total Bilirubin 0.4 mg/dl (0.2-1.3); Total Protein 6.2 g/dl (6.3-8.2); eGFR 15.44
[2024-03-10 12:14] LABS: Glucose - Point of Care 213 mg/dl (70-99)
--- NOTE | 2024-03-10 14:22 | W.PN.NEPH.PH ---
Today's Communication / Plan
-
HD Tuesday
Assessment/Plan
-
Assessment:
Sepsis (right third finger source?)
Syncopal episode
ESRD on HD MWF
T2DM
PAD s/p R BKA
DLD
HTN
GERD
Plan:
plan for HD Tuesday per usual MWF schedule
s/p amputation of third digit of right hand
tenderness over R fistula, L is the one we currently use. planning for US of R fistula per ID
Vanc for 6 weeks tentatively
-
-
Date of Service: March 10, 2024
CC / HPI / ROS
-
Chief Complaint:
End-stage renal disease
History of Present Illness:
ESRD Tuesday
Anemia worsening
Hemodynamically labile on midodrine support
Remains on IV vancomycin for finger osteomyelitis
Review of Systems:
no chest pain or sob
no fevers
Labs
-
Labs:
WBC 12.3 10^3/uL (4.8-10.8) H 03/10/24 10:12
RBC 2.68 10^6/uL (4.70-6.10) L 03/10/24 10:12
Hgb 8.0 g/dL (13.0-18.0) L 03/10/24 10:12
Hct 25.3 % (39.0-52.0) L 03/10/24 10:12
Plt Count 305 10^3/uL (130-400) 03/10/24 10:12
Sodium 136 mmol/L (135-145) 03/10/24 10:12
Potassium 3.6 mmol/L (3.5-5.1) 03/10/24 10:12
Chloride 98 mmol/L (98-107) 03/10/24 10:12
Carbon Dioxide 28 mmol/L (22-30) 03/10/24 10:12
BUN 30 mg/dl (9-20) H 03/10/24 10:12
Creatinine 4.3 mg/dL (0.7-1.3) H* 03/10/24 10:12
eGFR 15.44 03/10/24 10:12
Glucose 179 mg/dl (70-99) H 03/10/24 10:12
Calcium 7.2 mg/dl (8.4-10.2) L 03/10/24 10:12
Albumin 2.8 g/dl (3.5-5.0) L 03/10/24 10:12
Physical Exam
-
Vital Signs:
Vital Signs
Temp Pulse Resp BP Pulse Ox
98.5 F 78 11 98/57 100
03/10/24 07:05 03/10/24 12:00 03/10/24 12:00 03/10/24 10:00 03/10/24 13:22
Cardiovascular:: Regular rate and rhythm
Respiratory:: Bilateral: CTA
Lung Excursion:: Normal
Abdomen:: Nontender
Bowel Sounds:: Normal
Extremity Edema:: None: Right: (amputation)
[place] Catheter: No
--- NOTE | 2024-03-10 15:33 | PTCARENOTE ---
Pt presents as assessed. Aox3, swedish speaking. SR with a prolonged QT on tele monitor. Sating mid to high 90's on TC, 5L 28%. Dressing to surgical site C/D/I. C/o intense itching upon morning assessment. CHG bath and lotion provided, along with IV
prn Benadryl. Pt reports feeling improved. OOB to chair with PT. Able to make needs known, call vincent within reach.
--- NOTE | 2024-03-10 15:36 | W.PN.ORTHO ---
Today's Communication / Plan
-
53 year old male POD 2 right middle finger ray amputation, incision and debridement performed on 03/08/2024 under the direction of Dr. Marino.
- Keep dressing intact for 3-5 days
- Dressing change in 3-5 days and drain (x2) removal
- Remove sutures in 2-3 weeks
- Antibiotics per ID recommendations
- For PT, platform walker OK to RUE.
- Orthopedic surgery will continue to follow along.
Assessment
.
Distal Motor Intact: Yes
Dressing:
Clean, dry and intact. Splint in place. Able to wiggle digits.
Assessment:
08 Mar 2024 right middle finger ray amputation, Hand I&D.
Plan
.
Surgery / Date: 08 Mar 2024 R MD ray amputation, hand I&D.
Activity:
Out of bed.
PT/OT
Subjective
.
.:
Patient resting comfortably in bedside chair. Family bedside able to translate.
Vital Signs and Labs
.
Vital Signs and Labs:
Lab Results
03/10/24 10:12
03/10/24 10:12
Temp Pulse Resp BP Pulse Ox
98.1 F 78 11 98/57 100
03/10/24 11:05 03/10/24 12:00 03/10/24 12:00 03/10/24 10:00 03/10/24 13:22
[2024-03-10 16:25] LABS: Glucose - Point of Care 196 mg/dl (70-99)
[2024-03-10] MEDS: LIPITOR 60 MG PO (17:38)
[2024-03-10] MEDS: NEPHROCAP 1 CAPSULE PO (17:39)
[2024-03-10] MEDS: NOVOLOG FLEXPEN-LOW RESISTANCE 1 UNITS SC (17:39)
[2024-03-10] MEDS: COLACE 100 MG PO (21:01)
[2024-03-10] MEDS: XALATAN OPHTHALMIC SOLUTION 1 DROP LEFT EYE (21:08)
[2024-03-10] MEDS: MELATONIN 5 MG PO (21:08)
[2024-03-10 21:26] LABS: Glucose - Point of Care 153 mg/dl (70-99)
[2024-03-10] MEDS: LANTUS 0.209999999999999992 UNITS SC (22:20)
[2024-03-11] VITALS (15 sets, daily range): BP systolic 95–147; BP diastolic 45–96; O2SAT 97; BMI 41.7
[2024-03-11 05:01] LABS: Hematocrit 24.7 % (39.0-52.0); Hemoglobin 7.8 g/dL (13.0-18.0); Mean Corp Hgb Conc. 31.6 g/dL (33.0-37.0); Mean Corpuscular Hgb 30.2 pg (27.0-31.0); Mean Corpuscular Volume 95.7 fL (80.0-94.0); Mean Platelet Volume 9.4 fL (7.4-10.4); Platelet Count 300 10^3/uL (130-400); Red Blood Cell Count 2.58 10^6/uL (4.70-6.10); Red Cell Dist. Width 15.1 % (11.5-14.5)
[2024-03-11] MEDS: SYNTHROID 75 MCG PO (05:49)
--- NOTE | 2024-03-11 08:11 | PHA.VAN.FU ---
Vancomycin Assessment / Plan
- Assessment
Hemodialysis Schedule: MWF
WBC's are: Trending Down
In the past 24 hrs, patient has been: Afebrile
- Dosing Plan
Dosing by Level: Hold off on dosing today
- Monitoring Plan
Random Level: 5/20 IN AM PRE-HD
- Follow Up
Pharmacy will continue to follow.
Vancomycin Follow UP
- -
Patient Age: 53
Patient Sex: Male
Vancomycin Day #: 7
Indication: Skin And Soft Tissue
Requesting Provider: Dr. Dominguez / Shoaib
Pertinent Antimicrobial Allergies:
Penicillins - Unknown
Height / Weight:
Height 5 ft 11 in
Actual Weight 135.6 kg
Pertinent Past Medical History: ESRD on HD MWF, DM2, R. BKA
- Vital Signs / Lab Results
Temp Pulse Resp BP Pulse Ox
98.8 F 72 7 116/46 97
03/11/24 07:43 03/11/24 06:00 03/11/24 06:00 03/11/24 06:00 03/11/24 06:00
Lab Results - Hematology
03/09/24 03/10/24 03/11/24
05:01 10:12 04:12
WBC 21.0 H 12.3 H 10.0
Lab Results - Chemistry
03/10/24
10:12
BUN 30 H
Creatinine 4.3 H*
Estimated Creat Clear 27
Albumin 2.8 L
Microbiology Results
03/06/24 19:50 Blood Culture - Preliminary
Blood/Venous No Growth in 4 days- Final report to follow
03/06/24 16:58 Blood Culture - Preliminary
Blood/Venous No Growth in 4 days- Final report to follow
03/06/24 16:11 Blood Culture - Preliminary
Blood/Venous No Growth in 4 days- Final report to follow
03/08/24 18:11 Wound Culture - Preliminary
Hand - Left Staph aureus MRSA
Gram Stain - Preliminary
03/07/24 08:08 Blood Culture - Preliminary
Blood/Venous No Growth in 72 hours- Final report to follow
03/08/24 18:11 Anaerobic Culture - Preliminary
Hand - Left Culture pending. Anaerobic cultures are examined after 3
days incubation. Additional information to follow.
Therapeutic Drug Monitoring
Random Vancomycin 15.9 ug/ml 03/09/24 05:01
--- NOTE | 2024-03-11 08:16 | W.PN.HOSP.TC ---
Addendum entered and electronically signed by Maritza Kwon MD 03/11/24 14:01:
awaiting US right hemodialysis graft (nonfunctional) given tenderness in area and bacteremia. appreciate ID.
Original Note:
Today's Communication/Plan
-
see plan
Assessment / Plan
Assessment / Plan
53-year-old male past medical history of ESRD on hemodialysis Tuesday, Tuesday, Tuesday, diabetes, PAD status post right BKA, hypertension, GERD, prior cardiac arrest, prior PEG tube, obstructive sleep apnea, DVT, hypothyroidism, insomnia,
depression, obesity, chronic constipation, chronic anemia, presenting for weakness while seen at HD. He had an ER visit day prior for syncope. He is found to have infected necrotic right third digit with MRSA bacteremia now s/p amputation. JHOAN
confirms no e/o endocarditis.
HEAD CT
CERVICAL SPINE CT
IMPRESSION:
1. No acute intracranial abnormality noted.
2. No acute fracture or subluxation of the cervical spine.
CXR
03/05/24
IMPRESSION:
No acute cardiopulmonary process.
CT UPPER EXTREMITY 03/07/24
FINDINGS/IMPRESSION:
Limited by patient positioning and finger flexion.
Diffuse subcutaneous edema about the hand, greatest at the level of the third finger. No discrete loculated fluid collection to confirm the presence of a soft tissue abscess. Tiny foci of cutaneous gas ventral to the third distal phalanx. An MRI
would be more sensitive for the evaluation of a soft tissue infection.
No osseous destructive changes. No acute fracture or dislocation.
Vascular calcifications.
OPERATIVE REPORT 03/08/24
Operative Findings:
- Purulence in the palm, flexor tendon sheath, extending dorsally.
- Purulence in the 3rd MCP joint.
- Necrosis of the middle finger to the proximal phalanx level.
- No gross evidence of osteomyelitis on the 3rd metacarpal. Therefore, 'clean' margin of amputation.
PLAN:
# Sepsis (fever, leukocytosis, hypotension) unclear source likely due to right third finger paronychia,
# tenosynovitis right middle finger with evidence of necrosis
# MRSA Bacteremia
-blood cultures + MRSA; cleared as of 03/06
-continue IV Vancomycin; per ID will continue on 6 week course
-appreciate ortho and ID consults
-TTE with possible AV vegetation; s/p JHOAN on 03/08 without e/o endocarditis
-s/p CT with IV contrast - see results above
-s/p OR 03/08 - results above
-per Ortho:
- Keep dressing intact for 3-5 days
- Dressing change in 3-5 days and drain (x2) removal
- Remove sutures in 2-3 weeks
-Leukocytosis now resolved
-Eliquis resumed on 03/10; Ok'd by surgery
-*patient approaching DC, will need dressing change and drain removal pre-DC to OK
Acute on chronic anemia
Acute blood loss anemia post dislodgement of IV line during HD
-compression applied with stasis
-s/p 1 unit PRBC 03/07 and additional unit 03/08 pre-op
# Syncopal episode yesterday secondary to hypotension/sepsis
-CT head and C-spine shows no acute abnormalities
-Trop now negative x 3
Itching
-patient states this happens after iodine and anesthesia
-he's requesting wipes; will apply lotion after
-benadryl IV PRN
ESRD on hemodialysis Tuesday, Tuesday, Tuesday
-Nephrology consult appreciated
Chronic Hypotension
-continue midodrine PRN
Type 2 diabetes
-Continue Lantus 21 units
-insulin sliding scale
PAD status post right BKA
-Continue aspirin, statin
Hyperlipidemia
-Continue Vascepa
Essential hypertension
-Hold Coreg due to hypotension - BP remainslow 100's-110's
GERD
-Continue Protonix
History of prior cardiac arrest
Current tracheostomy
Prior PEG tube
Obstructive sleep apnea
History of DVT
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
Hypothyroidism
-Continue levothyroxine
Anxiety/depression
-Continue bupropion, fluoxetine, Ativan
Insomnia
Obesity
Chronic anemia
-Continue iron sulfate
Chronic constipation
-Continue bowel regimen
Full code
DVT prophylaxis�Eliquis
Regular diet
Anticipated Discharge: 24 - 48 hours
Subjective/Interval History
-
Date of Service: March 11, 2024
itching but otherwise feeling okay
Objective Data
-
Labs:
Laboratory Results
03/11/24
04:12
WBC 10.0
Hgb 7.8 L
Hct 24.7 L
Plt Count 300
Vital Signs:
Vital Signs
Temp Pulse Resp BP Pulse Ox
98.8 F 72 7 116/46 97
03/11/24 07:43 03/11/24 06:00 03/11/24 06:00 03/11/24 06:00 03/11/24 06:00
I&O
03/10/24 03/11/24 03/12/24
06:59 06:59 06:59
Intake Total 120 / 120 240 / 240
Output Total 200 / 200
Balance 120 / 120 40 / 40
Review of Systems
-
History Source: Patient
All other systems: Reviewed and negative
Physical Exam
-
General: No Apparent Distress
HEENT: Normocephalic, Atraumatic, Moist Mucous Membranes and Tracheostomy Collar
Respiratory: Clear to Auscultation
Cardiac: Regular Rhythm and S1/S2; Negative Murmur, Rub or Gallop
GI: Soft, Nontender, Nondistended, Normal Bowel Sounds and Peg Tube; Negative Organomegaly
Rectal: Deferred by Provider
Musculoskeletal: Other (right hand wrapped in surgical dressing/gauze - c/d/i; right BKA)
Skin: Negative Rash
Neuro: Awake, Alert and Nonfocal/Grossly Intact
Psych: Calm
Data Reviewed
-
Diagnostic Radiology: Report Reviewed by me
Labs: Labs Reviewed by me
[2024-03-11 08:30] LABS: Glucose - Point of Care 140 mg/dl (70-99)
--- NOTE | 2024-03-11 09:25 | W.PN.ID1 ---
Date of Service
Date of Service: March 11, 2024
Today's Communication
US of the right fistula needed before Dc
Assessment / Plan
MRSA bacteremia
Possible endocarditis
Right 3rd finger Paronychia, cellulitis, proximal osteomyelitis - s/p amputation
LUE AVF
Class III obesity
- repeat blood cultures 03/06 no growth to date
- await US of the R fistula
- continue with vancomycin; appreciate pharmacy assistance
- duration will be 6 weeks of IV vancomycin
- follow clinically
Chief Complaint
-: Cellulitis and Bacteremia
Subjective / Review of Systems
afebrile
bp stable
leukocytosis resolved
k normal
hand cx MRSA as expected
blood cultures cleared
Vital Signs / Physical Exam
Vital Signs
Vital Signs
Temp Pulse Resp BP Pulse Ox
98.8 F 72 7 116/46 97
03/11/24 07:43 03/11/24 06:00 03/11/24 06:00 03/11/24 06:00 03/11/24 06:00
Physical Exam
Constitutional: No Acute Distress
Cardiovascular: Regular Rate and S1/S2; Negative Murmur or Rub
Pulmonary: Clear and Symmetric; Negative Wheezes or Rales
Gastrointestinal: Soft, Non Tender, Non Distended and Normal Bowel Sounds
Skin: Warm and Dry; Negative Rash or Jaundice
Neurological: Awake
Objective Data
Lab Data
Lab Results
03/11/24 04:12
03/10/24 10:12
Estimated Creat Clear 27 ml/min 03/10/24 10:12
Lactic Acid Cancelled 03/05/24 23:00
Total Bilirubin 0.4 mg/dl (0.2-1.3) 03/10/24 10:12
AST 26 U/L (17-59) 03/10/24 10:12
ALT 13 U/L (0-50) 03/10/24 10:12
Alkaline Phosphatase 109 U/L (38-126) 03/10/24 10:12
Most recent labs reviewed.
Micro Results:
03/08/24 18:11 Anaerobic Culture - Preliminary
Hand - Left Culture pending. Anaerobic cultures are examined after 3
days incubation. Additional information to follow.
03/07/24 08:08 Blood Culture - Preliminary
Blood/Venous No Growth in 4 days- Final report to follow
03/06/24 19:50 Blood Culture - Preliminary
Blood/Venous No Growth in 4 days- Final report to follow
03/06/24 16:58 Blood Culture - Preliminary
Blood/Venous No Growth in 4 days- Final report to follow
03/06/24 16:11 Blood Culture - Preliminary
Blood/Venous No Growth in 4 days- Final report to follow
03/08/24 18:11 Wound Culture - Preliminary
Hand - Left Staph aureus MRSA
Gram Stain - Preliminary
03/05/24 18:49 Blood Culture - Final
Blood/Venous Staph aureus MRSA
Gram Stain - Final
03/05/24 18:49 Blood Culture - Final
Blood/Venous Staph aureus MRSA
Gram Stain - Final
03/05/24 18:50 Influenza Types A & B ([facility]) - Final
Nasal Swab Negative for Influenza A & B, NAAT
Negative results must be combined with clinical observations
and patient history.
Nucleic Acid Amplification test (NAAT)performed on the
[employer] platform.
[2024-03-11] MEDS: ATIVAN 0.5 MG PO ×2 (09:36→20:56)
[2024-03-11] MEDS: NOVOLOG FLEXPEN-LOW RESISTANCE SC ×2 (09:36→13:11)
[2024-03-11] MEDS: COLACE 100 MG PO ×2 (09:37→20:56)
[2024-03-11] MEDS: PERIDEX 0.12% ORAL RINSE 15 ML PO ×2 (09:38→21:03)
[2024-03-11] MEDS: ELIQUIS 2.5 MG PO ×2 (09:38→20:56)
[2024-03-11] MEDS: LOW STRENGTH ASPIRIN 81 MG PO (09:38)
[2024-03-11] MEDS: MIRALAX 17 GRAMS PO (09:38)
[2024-03-11] MEDS: FEOSOL 325 MG PO (09:38)
[2024-03-11] MEDS: PROZAC 10 MG PO (09:39)
[2024-03-11] MEDS: PROTONIX 40 MG PO (09:39)
[2024-03-11] MEDS: VITAMIN C 250 MG PO (09:39)
[2024-03-11] MEDS: PROZAC 40 MG PO (09:39)
[2024-03-11] MEDS: TYLENOL 650 MG PO (09:40)
[2024-03-11] MEDS: ATARAX 25 MG PO (09:40)
--- NOTE | 2024-03-11 09:59 | W.PN.ORTHO ---
Today's Communication / Plan
-
53 year old male POD 3 right middle finger ray amputation, incision and debridement performed on 03/08/2024 under the direction of Dr. Marino.
- Dressing change performed today (POD3). Drains removed without complication.
- Remove sutures in 2-3 weeks from DOS.
- Antibiotics per ID recommendations. Left hand wound culture revealing MRSA.
- For PT, platform walker OK to RUE.
- Orthopedic surgery will continue to follow along.
Assessment
.
Distal Motor Intact: Yes
Dressing:
Clean, dry and intact.
Assessment:
POD 3 right middle finger ray amputation, incision and debridement performed on 03/08/2024 under the direction of Dr. Marino.
Plan
.
Surgery / Date: 08 Mar 2024 R MD ray amputation, hand I&D.
Activity:
Out of bed.
PT/OT
Subjective
.
.:
Patient resting comfortably in bed.
Vital Signs and Labs
.
Vital Signs and Labs:
Lab Results
03/11/24 04:12
03/10/24 10:12
Temp Pulse Resp BP Pulse Ox
98.8 F 72 7 116/46 97
03/11/24 07:43 03/11/24 06:00 03/11/24 06:00 03/11/24 06:00 03/11/24 06:00
Physical Exam
-
Physical examination of the left hand reveals post-operative surgical dressings and splint intact. This was removed for further evaluation. There are well-approximated surgical incisions with sutures intact about the volar and dorsal aspects of the
left hand. [address] about the dorsum of the hand. Drains were removed. Scant purulent drainage noted. Range of motion deferred. Digital range of motion intact.
--- NOTE | 2024-03-11 12:00 | PTCARENOTE ---
Right hand surgical site dressing changed by surgeon this morning. Mild pain treated with Tylenol with relief. Patient sat on side of bed. Compliant with medication regimen. Able to make needs known and communiate pain when asked.
--- NOTE | 2024-03-11 12:34 | W.PN.NEPH.PH ---
Today's Communication / Plan
-
- HD tomorrow
Assessment/Plan
-
Assessment:
Sepsis (right third finger source?)
Syncopal episode
ESRD on HD MWF
T2DM
PAD s/p R BKA
DLD
HTN
GERD
Plan:
plan for HD Tuesday per usual MWF schedule
s/p amputation of third digit of right hand
tenderness over R fistula, L is the one we currently use. planning for US of R fistula per ID
Vanc for 6 weeks tentatively
-
-
Date of Service: March 11, 2024
CC / HPI / ROS
-
Chief Complaint:
End-stage renal disease
History of Present Illness:
ESRD Tuesday
Anemia worsening
Hemodynamically labile on midodrine support
Remains on IV vancomycin for finger osteomyelitis
Review of Systems:
no chest pain or sob
no fevers
Labs
-
Labs:
WBC 10.0 10^3/uL (4.8-10.8) 03/11/24 04:12
RBC 2.58 10^6/uL (4.70-6.10) L 03/11/24 04:12
Hgb 7.8 g/dL (13.0-18.0) L 03/11/24 04:12
Hct 24.7 % (39.0-52.0) L 03/11/24 04:12
Plt Count 300 10^3/uL (130-400) 03/11/24 04:12
Sodium 136 mmol/L (135-145) 03/10/24 10:12
Potassium 3.6 mmol/L (3.5-5.1) 03/10/24 10:12
Chloride 98 mmol/L (98-107) 03/10/24 10:12
Carbon Dioxide 28 mmol/L (22-30) 03/10/24 10:12
BUN 30 mg/dl (9-20) H 03/10/24 10:12
Creatinine 4.3 mg/dL (0.7-1.3) H* 03/10/24 10:12
eGFR 15.44 03/10/24 10:12
Glucose 179 mg/dl (70-99) H 03/10/24 10:12
Calcium 7.2 mg/dl (8.4-10.2) L 03/10/24 10:12
Albumin 2.8 g/dl (3.5-5.0) L 03/10/24 10:12
Physical Exam
-
Vital Signs:
Vital Signs
Temp Pulse Resp BP Pulse Ox
98.3 F 72 7 116/46 97
03/11/24 11:32 03/11/24 06:00 03/11/24 06:00 03/11/24 06:00 03/11/24 10:18
Cardiovascular:: Regular rate and rhythm
Respiratory:: Bilateral: Coarse
Lung Excursion:: Normal
Abdomen:: Nontender and Soft
Bowel Sounds:: Normal
[place] Catheter: No
Other Findings::
amputee
[2024-03-11 13:11] LABS: Glucose - Point of Care 138 mg/dl (70-99)
[2024-03-11] MEDS: NORCO 5/325 1 TABLET PO ×2 (14:04→21:01)
[2024-03-11] MEDS: ROBITUSSIN 200 MG PO (14:26)
[2024-03-11 16:59] LABS: Glucose - Point of Care 209 mg/dl (70-99)
[2024-03-11] MEDS: NOVOLOG FLEXPEN-LOW RESISTANCE 2 UNITS SC (17:51)
[2024-03-11] MEDS: LIPITOR 60 MG PO (17:51)
[2024-03-11] MEDS: NEPHROCAP 1 CAPSULE PO (17:51)
--- NOTE | 2024-03-11 20:00 | PTCARENOTE ---
Received pt sitting up in chair w/ no complaints. AAOx3. Pt argentine speaking, but able to make needs known. SR on the monitor. Trach collar 28% w/ 5L pox 98%. Lungs w/ rhonchi. R femoral line in place - dressing CDI. R hand dressing wrapped w/ CRISTIAN
CDI. 01/31 pain. L foot dressed w/ silicone foam dressing - scabs on great toe.
[2024-03-11 20:57] LABS: Glucose - Point of Care 179 mg/dl (70-99)
[2024-03-11] MEDS: LANTUS 0.209999999999999992 UNITS SC (22:07)
[2024-03-11] MEDS: XALATAN OPHTHALMIC SOLUTION 1 DROP LEFT EYE (22:07)
[2024-03-11] MEDS: MELATONIN 5 MG PO (22:07)
[2024-03-12] VITALS (29 sets, daily range): BP systolic 96–158; BP diastolic 42–108; BMI 41.9
[2024-03-12 04:34] LABS: Hemoglobin 7.5 g/dL (13.0-18.0); Mean Corp Hgb Conc. 31.3 g/dL (33.0-37.0); Mean Corpuscular Hgb 29.8 pg (27.0-31.0); Mean Corpuscular Volume 95.2 fL (80.0-94.0); Mean Platelet Volume 9.3 fL (7.4-10.4); Platelet Count 293 10^3/uL (130-400); Red Blood Cell Count 2.52 10^6/uL (4.70-6.10); Red Cell Dist. Width 15.2 % (11.5-14.5)
[2024-03-12] MEDS: SYNTHROID 75 MCG PO (04:34)
[2024-03-12] MEDS: ATARAX 25 MG PO (04:34)
[2024-03-12 04:49] LABS: Vancomycin Random 16.1 ug/ml
[2024-03-12 05:03] LABS: Blood Urea Nitrogen 45 mg/dl (9-20); Calcium 6.7 mg/dl (8.4-10.2); Carbon Dioxide 25 mmol/L (22-30); Chloride 96 mmol/L (98-107); Estimated Creatinine Clearance 18 ml/min; Glucose 168 mg/dl (70-99); Sodium 134 mmol/L (135-145)
[2024-03-12 07:48] LABS: Glucose - Point of Care 170 mg/dl (70-99)
--- NOTE | 2024-03-12 08:09 | W.PN.UPDATE ---
Update Note
Progress Note Update
Mr. Christine is POD4 following his right middle finger ray amputation, I&D performed by Dr. Marino. He is resting comfortably in bed this morning, and denies any pain in the hand at present.
Directed exam of the right hand. Dressings taken down to reveal surgical incision clean, dry and intact. Slight maceration between digits. No active drainage or bleeding. Patient able to wiggle fingers. Sensation intact to light touch. Capillary
refill <2 seconds.
53 year old male POD 4 right middle finger ray amputation, incision and debridement performed on 03/08/2024 under the direction of Dr. Marino.
- Daily dressing changes. Orders placed. Xeroform, gauze, jin, short arm splint may be removed at next dressing change.
- Remove sutures in 2-3 weeks from DOS.
- Antibiotics per ID recommendations. Left hand wound culture revealing MRSA. Currently Vanco.
- For PT, platform walker OK to RUE. OT orders placed to begin ROM of digits.
- Orthopedic surgery will continue to follow along.
--- NOTE | 2024-03-12 08:30 | PHA.VAN.FU ---
Vancomycin Assessment / Plan
- Assessment
Hemodialysis Schedule: MWF
WBC's are: WNL
In the past 24 hrs, patient has been: Afebrile
- Assessment - Therapeutic Drug Monitoring
Random Level: pre-HD = 16.1
- Dosing Plan
Continue: Vanc 1000mg HD MWF
- Monitoring Plan
Level(s) appropriate: Recheck trough at minimum of weekly intervals, Repeat sooner for changes in renal function or clinical status
Next Level Due (Date): ~03/19, may consider pre-HD for Fri, if remains admitted
- Follow Up
Pharmacy will continue to follow.
Vancomycin Follow UP
- -
Patient Age: 53
Patient Sex: Male
Vancomycin Day #: 8
Indication: Skin And Soft Tissue
Requesting Provider: Dr. Dominguez / Shoaib
Pertinent Antimicrobial Allergies:
Penicillins - Unknown
Height / Weight:
Height 5 ft 11 in
Actual Weight 136.1 kg
Pertinent Past Medical History: ESRD on HD MWF, DM2, R. BKA
- Vital Signs / Lab Results
Temp Pulse Resp BP Pulse Ox
98.1 F 71 16 101/53 96
03/12/24 07:14 03/12/24 06:17 03/12/24 06:17 03/12/24 06:17 03/12/24 06:17
Lab Results - Hematology
03/10/24 03/11/24 03/12/24
10:12 04:12 04:17
WBC 12.3 H 10.0 9.0
Lab Results - Chemistry
03/10/24 03/12/24
10:12 04:17
BUN 30 H 45 H
Creatinine 4.3 H* 6.5 H*
Estimated Creat Clear 27 18
Albumin 2.8 L
Microbiology Results
03/07/24 08:08 Blood Culture - Final
Blood/Venous No Growth - Final Report
03/06/24 19:50 Blood Culture - Final
Blood/Venous No Growth - Final Report
03/06/24 16:58 Blood Culture - Final
Blood/Venous No Growth - Final Report
03/06/24 16:11 Blood Culture - Final
Blood/Venous No Growth - Final Report
03/08/24 18:11 Anaerobic Culture - Preliminary
Hand - Left Culture pending. Anaerobic cultures are examined after 3
days incubation. Additional information to follow.
03/08/24 18:11 Wound Culture - Preliminary
Hand - Left Staph aureus MRSA
Gram Stain - Preliminary
Therapeutic Drug Monitoring
Random Vancomycin 16.1 ug/ml 03/12/24 04:17
--- NOTE | 2024-03-12 08:51 | W.PN.HOSP.TC ---
Today's Communication/Plan
-
Check iron studies
1 unit of blood transfusion
Ultrasound of the fistula
Corrected calcium 7.7-check vitamin D level, check Phos
Assessment / Plan
Assessment / Plan
53-year-old male past medical history of ESRD on hemodialysis Tuesday, Tuesday, Tuesday, diabetes, PAD status post right BKA, hypertension, GERD, prior cardiac arrest, prior PEG tube, obstructive sleep apnea, DVT, hypothyroidism, insomnia,
depression, obesity, chronic constipation, chronic anemia, presenting for weakness while seen at HD. He had an ER visit day prior for syncope. He is found to have infected necrotic right third digit with MRSA bacteremia now s/p amputation. JHOAN
confirms no e/o endocarditis.
HEAD CT
CERVICAL SPINE CT
IMPRESSION:
1. No acute intracranial abnormality noted.
2. No acute fracture or subluxation of the cervical spine.
CXR
03/05/24
IMPRESSION:
No acute cardiopulmonary process.
CT UPPER EXTREMITY 03/07/24
FINDINGS/IMPRESSION:
Limited by patient positioning and finger flexion.
Diffuse subcutaneous edema about the hand, greatest at the level of the third finger. No discrete loculated fluid collection to confirm the presence of a soft tissue abscess. Tiny foci of cutaneous gas ventral to the third distal phalanx. An MRI
would be more sensitive for the evaluation of a soft tissue infection.
No osseous destructive changes. No acute fracture or dislocation.
Vascular calcifications.
OPERATIVE REPORT 03/08/24
Operative Findings:
- Purulence in the palm, flexor tendon sheath, extending dorsally.
- Purulence in the 3rd MCP joint.
- Necrosis of the middle finger to the proximal phalanx level.
- No gross evidence of osteomyelitis on the 3rd metacarpal. Therefore, 'clean' margin of amputation.
Used [employer] services
On examination awake alert
Cardiovascular system S1-S2 appreciated
Chest clear to auscultation
Abdomen soft and nontender
Right hand-reviewed with orthopedics at bedside sutures dorsal and palmar aspect stable with no discharge
Right BKA
Abdomen soft and nontender
PLAN:
# Sepsis (fever, leukocytosis, hypotension) unclear source likely due to right third finger paronychia
# Tenosynovitis right middle finger with evidence of necrosis
# MRSA Bacteremia
-Blood cultures + MRSA; cleared as of 03/06
-Continue IV Vancomycin; per ID will continue on 6 week course
-appreciate ortho and ID consults
-TTE with possible AV vegetation; s/p JHOAN on 03/08 without e/o endocarditis
-s/p CT with IV contrast - see results above
-s/p OR 03/08 - results above
-per Ortho:
- Keep dressing intact for 3-5 days
- Dressing change in 3-5 days and drain (x2) removal
- Remove sutures in 2-3 weeks
- Platform walker OK per ortho for right and ROM with OT
-Leukocytosis now resolved
-Eliquis resumed on 03/10; Ok'd by surgery
-*patient approaching DC, will need dressing change and drain removal pre-DC to NH
-Tenderness at the right fistula site-for ultrasound today.
#Acute on chronic anemia
Acute blood loss anemia post dislodgement of IV line during HD-compression applied with stasis
-s/p 1 unit PRBC 03/07 and additional unit 03/08 pre-op
-Will give one more unit today with drop
-Check Iron studies
# Hypocalcemia-check albumin and correct
-Also check vitamin D level
# Syncopal episode secondary to hypotension/sepsis
-CT head and C-spine shows no acute abnormalities
-Trop now negative x 3
#Itching
-patient states this happens after iodine and anesthesia
-Benadryl IV PRN
#ESRD on hemodialysis Tuesday, Tuesday, Tuesday
-Nephrology consult appreciated
#Chronic Hypotension
-continue midodrine PRN
#Type 2 diabetes
-Continue Lantus 21 units
-insulin sliding scale
#PAD status post right BKA
Left second toe removal secondary to gangrene
-Continue aspirin, statin
#Hyperlipidemia
-Continue Vascepa
#Essential hypertension
-Hold Coreg due to hypotension - BP remain low normal 100's-110's
#GERD
-Continue Protonix
#History of prior cardiac arrest [facility]
#Current tracheostomy and Prior PEG tube
#Obstructive sleep apnea
#History of DVT
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
#Hypothyroidism
-Continue levothyroxine
#Anxiety/depression
-Continue Bupropion, Fluoxetine, Ativan
# History of stroke
# Blind left eye
#Insomnia
#Obesity
#Chronic constipation
-Continue bowel regimen
#Full code
# DVT prophylaxis�Eliquis
D/W Ortho PA at bed side
D/W RN at bed side
medically complicated, time spent 51 min
Anticipated Discharge: Within 24 hours
Subjective/Interval History
-
Date of Service: March 12, 2024
Objective Data
-
Labs:
Laboratory Results
03/12/24
04:17
WBC 9.0
Hgb 7.5 L
Hct 24.0 L
Plt Count 293
Sodium 134 L
Potassium 4.0
Chloride 96 L
Carbon Dioxide 25
BUN 45 H
Creatinine 6.5 H*
Glucose 168 H
Calcium 6.7 L*
Vital Signs:
Vital Signs
Temp Pulse Resp BP Pulse Ox
98.1 F 71 16 101/53 96
03/12/24 07:14 03/12/24 06:17 03/12/24 06:17 03/12/24 06:17 03/12/24 06:17
I&O
03/11/24 03/12/24 03/13/24
06:59 06:59 06:59
Intake Total 240 / 240 490 / 490
Output Total 200 / 200 375 / 375
Balance 40 / 40 115 / 115
--- NOTE | 2024-03-12 09:16 | W.PN.ID1 ---
Date of Service
Date of Service: March 12, 2024
Today's Communication
- await US of the R fistula - discussed with [facility]
- continue with vancomycin; appreciate pharmacy assistance
- duration will be 6 weeks of IV vancomycin
Assessment / Plan
MRSA bacteremia
Possible endocarditis
Right 3rd finger Paronychia, cellulitis, proximal osteomyelitis - s/p amputation
LUE AVF
Class III obesity
- repeat blood cultures 03/06 no growth to date
- await US of the R fistula - discussed with [facility]
- continue with vancomycin; appreciate pharmacy assistance
- duration will be 6 weeks of IV vancomycin
- follow clinically
Chief Complaint
-: Cellulitis, Bacteremia and Other (osteomyelitis)
Subjective / Review of Systems
afebrile
bp stable
wbc 9, hgb 7.5, plt 293
K normal
blood cultures have cleared
Vital Signs / Physical Exam
Vital Signs
Vital Signs
Temp Pulse Resp BP Pulse Ox
98.1 F 77 19 116/92 100
03/12/24 07:14 03/12/24 08:00 03/12/24 08:00 03/12/24 08:00 03/12/24 08:00
Physical Exam
Constitutional: No Acute Distress
Cardiovascular: Regular Rate and S1/S2; Negative Murmur or Rub
Pulmonary: Clear and Symmetric; Negative Wheezes or Rales
Gastrointestinal: Soft, Non Tender, Non Distended and Normal Bowel Sounds
Extremities: Other (no tenderness over the right AVF today)
Skin: Warm and Dry; Negative Rash or Jaundice
Objective Data
Lab Data
Lab Results
03/12/24 04:17
03/12/24 04:17
Estimated Creat Clear 18 ml/min 03/12/24 04:17
Lactic Acid Cancelled 03/05/24 23:00
Total Bilirubin 0.4 mg/dl (0.2-1.3) 03/10/24 10:12
AST 26 U/L (17-59) 03/10/24 10:12
ALT 13 U/L (0-50) 03/10/24 10:12
Alkaline Phosphatase 109 U/L (38-126) 03/10/24 10:12
Most recent labs reviewed.
Micro Results:
03/07/24 08:08 Blood Culture - Final
Blood/Venous No Growth - Final Report
03/06/24 19:50 Blood Culture - Final
Blood/Venous No Growth - Final Report
03/06/24 16:58 Blood Culture - Final
Blood/Venous No Growth - Final Report
03/06/24 16:11 Blood Culture - Final
Blood/Venous No Growth - Final Report
03/08/24 18:11 Anaerobic Culture - Preliminary
Hand - Left Culture pending. Anaerobic cultures are examined after 3
days incubation. Additional information to follow.
03/08/24 18:11 Wound Culture - Preliminary
Hand - Left Staph aureus MRSA
Gram Stain - Preliminary
03/05/24 18:49 Blood Culture - Final
Blood/Venous Staph aureus MRSA
Gram Stain - Final
03/05/24 18:49 Blood Culture - Final
Blood/Venous Staph aureus MRSA
Gram Stain - Final
03/05/24 18:50 Influenza Types A & B ([facility]) - Final
Nasal Swab Negative for Influenza A & B, NAAT
Negative results must be combined with clinical observations
and patient history.
Nucleic Acid Amplification test (NAAT)performed on the
[employer] platform.
[2024-03-12] MEDS: NOVOLOG FLEXPEN-LOW RESISTANCE 1 UNITS SC ×2 (09:49→19:42)
[2024-03-12] MEDS: LOW STRENGTH ASPIRIN 81 MG PO (09:49)
[2024-03-12] MEDS: PROZAC 40 MG PO (09:50)
[2024-03-12] MEDS: SENOKOT 17.1999999999999993 MG PO ×2 (09:52→21:49)
[2024-03-12] MEDS: PROTONIX 40 MG PO (09:52)
[2024-03-12] MEDS: ATIVAN 0.5 MG PO ×2 (09:52→21:50)
[2024-03-12] MEDS: ELIQUIS 2.5 MG PO ×2 (09:52→21:49)
[2024-03-12] MEDS: COLACE 100 MG PO ×2 (09:52→21:49)
[2024-03-12] MEDS: PROZAC 10 MG PO (09:53)
[2024-03-12] MEDS: VITAMIN C 250 MG PO (09:53)
[2024-03-12] MEDS: FEOSOL 325 MG PO (09:53)
[2024-03-12] MEDS: WELLBUTRIN SR (12 hour sustained release) 100 MG PO (09:53)
[2024-03-12] MEDS: MILK OF MAGNESIA 30 ML PO (09:54)
[2024-03-12] MEDS: PERIDEX 0.12% ORAL RINSE 15 ML PO (09:54)
[2024-03-12] MEDS: MIRALAX 17 GRAMS PO (09:54)
[2024-03-12 10:00] LABS: Albumin 2.8 g/dl (3.5-5.0); Iron 46 ug/dl (49-181); Magnesium 1.6 mg/dl (1.6-2.3); Phosphorus 5.5 mg/dl (2.5-4.5)
[2024-03-12 10:09] LABS: Percent Saturation 27 % (20-50); Total Iron Binding Capacity 165 ug/dl (261-462)
[2024-03-12 10:17] LABS: Vitamin D, 25-OH*** 44.8 ng/mL (30-80)
[2024-03-12 10:50] LABS: Vitamin B12 882 pg/ml (239-931)
[2024-03-12 11:55] LABS: Glucose - Point of Care 208 mg/dl (70-99)
[2024-03-12] MEDS: NOVOLOG FLEXPEN-LOW RESISTANCE 2 UNITS SC (12:38)
--- NOTE | 2024-03-12 12:44 | PTCARENOTE ---
Patient out of bed to chair with assistance x1 along with prosthesis for right leg and boot for left leg. Patient had to get back in bed for ultra sound studies of right fistula. Patient is to receive i unit PRBC's today and HD later in the
afternoon.
--- NOTE | 2024-03-12 16:46 | PTCARENOTE ---
Patient received 1 units PRBC's without incident. Vital signs stable ( see work list).
[2024-03-12 17:02] LABS: Glucose - Point of Care 179 mg/dl (70-99)
--- NOTE | 2024-03-12 17:06 | W.PN.NEPH.HD ---
Assessment
-
Seen on HD. no new issues. VSS, access LUE AVG ok
Progress Note - Hemodialysis
-
Date of Service: March 12, 2024
Duration: 30 minutes and 3 hours
Potassium Bath: 3
Calcium Bath: 2.5
Opti-Dialyzer: 160
Ultrafiltration: Other (kg)
Blood Flow: 400
Dialysate Flow: 600
Heparin: no
EPO: 76329 units
[2024-03-12] MEDS: RETACRIT 10000 UNITS IV (18:20)
[2024-03-12] MEDS: VANCOCIN 200 IV (19:45)
[2024-03-12 21:42] LABS: Glucose - Point of Care 154 mg/dl (70-99)
[2024-03-12] MEDS: MELATONIN 5 MG PO (21:42)
[2024-03-12] MEDS: MAGNESIUM OXIDE 500 MG PO (21:43)
[2024-03-12] MEDS: NEPHROCAP 1 CAPSULE PO (21:43)
[2024-03-12] MEDS: LIPITOR 60 MG PO (21:43)
[2024-03-12] MEDS: BENADRYL 25 MG IV (21:44)
[2024-03-12] MEDS: OSCAL CAL 500 500 MG PO (21:44)
[2024-03-12] MEDS: XALATAN OPHTHALMIC SOLUTION 1 DROP LEFT EYE (21:50)
[2024-03-12] MEDS: LANTUS 0.209999999999999992 UNITS SC (21:50)
[2024-03-12] MEDS: PERIDEX 0.12% ORAL RINSE PO (21:54)
--- NOTE | 2024-03-12 23:15 | PTCARENOTE ---
Pt transferred to 2N. Continues to be on trach venti mask 5L. Suctioned X1, white thick. NSR. VSS. Had HD later in the evening, ending around 2230ish. tolerated well, 3kilos off. Took pills fine. C/o itchiness, prn's given. R hand dressing CDI.
Femoral triple lumen intact. No other issues at this time. No assessment changes from previous shift. Report given to 2N.
--- NOTE | 2024-03-13 01:46 | PTCARENOTE ---
Patient transferred from IMU to room 2136. Patient AAOx3, Albanian speaking. VSS as documented. Assessment as documented. Patient oriented to room. Bed in lowest position. Call vincent within reach.
[2024-03-13 03:41] VITALS: BP 147/87
[2024-03-13] MEDS: SYNTHROID 75 MCG PO (04:09)
[2024-03-13] MEDS: TYLENOL 650 MG PO (04:09)
[2024-03-13 05:09] LABS: Hematocrit 27.1 % (39.0-52.0); Hemoglobin 8.7 g/dL (13.0-18.0); Mean Corp Hgb Conc. 32.1 g/dL (33.0-37.0); Mean Corpuscular Hgb 30.1 pg (27.0-31.0); Mean Corpuscular Volume 93.8 fL (80.0-94.0); Mean Platelet Volume 9.3 fL (7.4-10.4); Platelet Count 304 10^3/uL (130-400); Red Blood Cell Count 2.89 10^6/uL (4.70-6.10); Red Cell Dist. Width 15.5 % (11.5-14.5); White Blood Cell Count 8.6 10^3/uL (4.8-10.8)
[2024-03-13 05:56] VITALS: BMI 42.0
[2024-03-13 07:30] VITALS: BP 151/63
--- NOTE | 2024-03-13 07:30 | W.PN.UPDATE ---
Update Note
Progress Note Update
Mr. Christine is POD5 following his right middle finger ray amputation, I&D performed by Dr. Marino. He is resting comfortably in bed this morning, and denies any pain in the hand at present.
Directed exam of the right hand. Dressings taken down to reveal surgical incision clean, dry and intact. Slight maceration between digits. No active drainage or bleeding. Patient able to wiggle fingers. Sensation intact to light touch. Capillary
refill <2 seconds.
53 year old male POD5 right middle finger ray amputation, incision and debridement performed on 03/08/2024 under the direction of Dr. Marino.
- Dressing changed this morning. Splint removed. Perform daily dressing changes with xeroform, 4x4 gauze, jin, and CRISTIAN wrap.
- Remove sutures in 2-3 weeks from DOS.
- Antibiotics per ID recommendations. Left hand wound culture revealing MRSA. Currently Vanco.
- For PT, platform walker OK to RUE. OT orders placed to begin ROM of digits.
- Orthopedic surgery will continue to follow along.
[2024-03-13 07:44] LABS: Glucose - Point of Care 146 mg/dl (70-99)
[2024-03-13] MEDS: NOVOLOG FLEXPEN-LOW RESISTANCE SC ×2 (08:30→11:41)
[2024-03-13] MEDS: PROZAC 40 MG PO (09:14)
[2024-03-13] MEDS: PROZAC 10 MG PO (09:14)
[2024-03-13] MEDS: COLACE 100 MG PO ×2 (09:15→21:06)
[2024-03-13] MEDS: ATIVAN 0.5 MG PO ×2 (09:15→21:06)
[2024-03-13] MEDS: PROTONIX 40 MG PO (09:15)
[2024-03-13] MEDS: LOW STRENGTH ASPIRIN 81 MG PO (09:15)
[2024-03-13] MEDS: FEOSOL 325 MG PO (09:15)
[2024-03-13] MEDS: SENOKOT 17.1999999999999993 MG PO ×2 (09:15→21:06)
[2024-03-13] MEDS: VITAMIN C 250 MG PO (09:15)
[2024-03-13] MEDS: ELIQUIS 2.5 MG PO ×2 (09:16→21:05)
[2024-03-13] MEDS: PERIDEX 0.12% ORAL RINSE 15 ML PO ×2 (09:16→21:06)
[2024-03-13] MEDS: OSCAL CAL 500 500 MG PO (09:16)
[2024-03-13] MEDS: MIRALAX 17 GRAMS PO (09:16)
--- NOTE | 2024-03-13 10:09 | PHA.VAN.FU ---
Vancomycin Assessment / Plan
- Assessment
Hemodialysis Schedule: MWF
Last Hemodialysis performed: Mon 03/12
WBC's are: WNL
In the past 24 hrs, patient has been: Afebrile
- Dosing Plan
Continue: Vanc 1000mg HD MWF
- Monitoring Plan
Level(s) appropriate: Recheck trough at minimum of weekly intervals, Repeat sooner for changes in renal function or clinical status
Next Level Due (Date): ~03/19, may consider pre-HD for Fri, if remains admitted
- Follow Up
Pharmacy will continue to follow.
Vancomycin Follow UP
- -
Patient Age: 53
Patient Sex: Male
Vancomycin Day #: 9
Indication: Skin And Soft Tissue
Requesting Provider: Dr. Dominguez / Shoaib
Pertinent Antimicrobial Allergies:
Penicillins - Unknown
Height / Weight:
Height 5 ft 11 in
Actual Weight 136.441 kg
Pertinent Past Medical History: ESRD on HD MWF, DM2, R. BKA
- Vital Signs / Lab Results
Temp Pulse Resp BP Pulse Ox
98.4 F 72 18 151/63 94
03/13/24 07:30 03/13/24 07:30 03/13/24 07:30 03/13/24 07:30 03/13/24 07:30
Lab Results - Hematology
03/10/24 03/11/24 03/12/24
10:12 04:12 04:17
WBC 12.3 H 10.0 9.0
03/13/24
04:48
WBC 8.6
Lab Results - Chemistry
03/10/24 03/12/24
10:12 04:17
BUN 30 H 45 H
Creatinine 4.3 H* 6.5 H*
Estimated Creat Clear 27 18
Albumin 2.8 L 2.8 L
Microbiology Results
03/08/24 18:11 Anaerobic Culture - Final
Hand - Left NO ANAEROBES ISOLATED
03/08/24 18:11 Wound Culture - Final
Hand - Left Staph aureus MRSA
Gram Stain - Final
03/07/24 08:08 Blood Culture - Final
Blood/Venous No Growth - Final Report
03/06/24 19:50 Blood Culture - Final
Blood/Venous No Growth - Final Report
03/06/24 16:58 Blood Culture - Final
Blood/Venous No Growth - Final Report
03/06/24 16:11 Blood Culture - Final
Blood/Venous No Growth - Final Report
Therapeutic Drug Monitoring
Random Vancomycin 16.1 ug/ml 03/12/24 04:17
--- NOTE | 2024-03-13 11:00 | W.PN.HOSP.TC ---
Addendum entered and electronically signed by Celia Crowe MD 03/13/24 13:47:
pt had a BM
Discharge coordination time 45 min
Original Note:
Today's Communication/Plan
-
Discussed with case management-regarding discharge today
Assessment / Plan
Assessment / Plan
53-year-old male past medical history of ESRD on hemodialysis Tuesday, Tuesday, Tuesday, diabetes, PAD status post right BKA, hypertension, GERD, prior cardiac arrest, prior PEG tube, obstructive sleep apnea, DVT, hypothyroidism, insomnia,
depression, obesity, chronic constipation, chronic anemia, presenting for weakness while seen at HD. He had an ER visit day prior for syncope. He is found to have infected necrotic right third digit with MRSA bacteremia now s/p amputation. JHOAN
confirms no e/o endocarditis.
HEAD CT
CERVICAL SPINE CT
IMPRESSION:
1. No acute intracranial abnormality noted.
2. No acute fracture or subluxation of the cervical spine.
CXR
03/05/24
IMPRESSION:
No acute cardiopulmonary process.
CT UPPER EXTREMITY 03/07/24
FINDINGS/IMPRESSION:
Limited by patient positioning and finger flexion.
Diffuse subcutaneous edema about the hand, greatest at the level of the third finger. No discrete loculated fluid collection to confirm the presence of a soft tissue abscess. Tiny foci of cutaneous gas ventral to the third distal phalanx. An MRI
would be more sensitive for the evaluation of a soft tissue infection.
No osseous destructive changes. No acute fracture or dislocation.
Vascular calcifications.
OPERATIVE REPORT 03/08/24
Operative Findings:
- Purulence in the palm, flexor tendon sheath, extending dorsally.
- Purulence in the 3rd MCP joint.
- Necrosis of the middle finger to the proximal phalanx level.
- No gross evidence of osteomyelitis on the 3rd metacarpal. Therefore, 'clean' margin of amputation.
Used [employer] services
On examination awake alert
Cardiovascular system S1-S2 appreciated
Chest clear to auscultation
Abdomen soft and nontender
Right hand-reviewed with orthopedics at bedside sutures dorsal and palmar aspect stable with no discharge
Right BKA
Abdomen soft and nontender
PLAN:
# Sepsis (fever, leukocytosis, hypotension) unclear source likely due to right third finger paronychia
# Tenosynovitis right middle finger with evidence of necrosis
# MRSA Bacteremia
-Blood cultures + MRSA; cleared as of 03/06
-Continue IV Vancomycin; per ID will continue on 6 week course
-appreciate ortho and ID consults
-TTE with possible AV vegetation; s/p JHOAN on 03/08 without e/o endocarditis
-s/p CT with IV contrast - see results above
-s/p OR 03/08 - results above
-per Ortho:
- Keep dressing intact for 3-5 days
- Dressing change in 3-5 days and drain (x2) removal
- Remove sutures in 2-3 weeks
- Platform walker OK per ortho for right and ROM with OT
-Leukocytosis now resolved
-Eliquis resumed on 03/10; Ok'd by surgery
-Tenderness at the right fistula site- ultrasound no collection
-Doppler with small vessel disease
#Acute on chronic anemia
Acute blood loss anemia post dislodgement of IV line during HD-compression applied with stasis
s/p 1 unit PRBC 03/07 , one unit 03/08 pre-op and one on 03/12/24
No GEMINI
# Hypocalcemia-check albumin and correct
-replaced PO
-Add Rocaltrol
# Syncopal episode secondary to hypotension/sepsis
-CT head and C-spine shows no acute abnormalities
-Trop now negative x 3
#Itching
-patient states this happens after iodine and anesthesia
-Benadryl IV PRN
#ESRD on hemodialysis Tuesday, Tuesday, Tuesday
-Nephrology consult appreciated
#Chronic Hypotension
-continue midodrine PRN
#Type 2 diabetes
-Continue Lantus 21 units
-insulin sliding scale
#PAD status post right BKA
Left second toe removal secondary to gangrene
-Continue aspirin, statin
#Hyperlipidemia
-Continue Vascepa
#Essential hypertension
-Hold Coreg due to hypotension - BP remain low normal 100's-110's
#GERD
-Continue Protonix
#History of prior cardiac arrest [facility]
#Current tracheostomy and Prior PEG tube
#Obstructive sleep apnea
#History of DVT
-[employer] Eliquis resumed
#Hypothyroidism
-Continue levothyroxine
#Anxiety/depression
-Continue Bupropion, Fluoxetine, Ativan
# History of stroke
# Blind left eye
#Insomnia
#Obesity
#Chronic constipation
-Continue bowel regimen
#Right femoral Line
#Full code
# DVT prophylaxis�Eliquis
D/W ID- Last day of AB 04/15/24 with HD. OK for discharge today
D/W Case management re discharge
D/W RN at bed side
D/W Ortho-OK for discharge
D/W Daughter and updated.
Anticipated Discharge: Today
Subjective/Interval History
-
Date of Service: March 13, 2024
Objective Data
-
Labs:
Laboratory Results
03/13/24
04:48
WBC 8.6
Hgb 8.7 L
Hct 27.1 L
Plt Count 304
Vital Signs:
Vital Signs
Temp Pulse Resp BP Pulse Ox
98.4 F 72 18 151/63 94
03/13/24 07:30 03/13/24 07:30 03/13/24 07:30 03/13/24 07:30 03/13/24 07:30
I&O
03/12/24 03/13/24 03/14/24
06:59 06:59 06:59
Intake Total 490 / 490 730 / 730
Output Total 375 / 375
Balance 115 / 115 730 / 730
--- NOTE | 2024-03-13 11:03 | W.PN.ID1 ---
Date of Service
Date of Service: March 13, 2024
Today's Communication
- continue with vancomycin; appreciate pharmacy assistance
- duration will be 6 weeks of IV vancomycin through 03/15/24
- stable for dc from ID perspective
Assessment / Plan
MRSA bacteremia
Possible endocarditis
Right 3rd finger Paronychia, cellulitis, proximal osteomyelitis - s/p amputation
LUE AVF
Class III obesity
- repeat blood cultures 03/06 finalized negative
- US of R fistula without collection or report of inflammation
- continue with vancomycin; appreciate pharmacy assistance
- duration will be 6 weeks of IV vancomycin through 03/15/24
- stable for dc from ID perspective
Chief Complaint
-: Cellulitis, Bacteremia and Other (osteomyelitis)
Subjective / Review of Systems
afebrile
bp stable
without leukocytosis
Vital Signs / Physical Exam
Vital Signs
Vital Signs
Temp Pulse Resp BP Pulse Ox
98.4 F 72 18 151/63 94
03/13/24 07:30 03/13/24 07:30 03/13/24 07:30 03/13/24 07:30 03/13/24 07:30
Physical Exam
Constitutional: No Acute Distress
Cardiovascular: Regular Rate
Pulmonary: Symmetric and Non Labored
Gastrointestinal: Non Tender and Non Distended
Skin: Dry; Negative Rash or Jaundice
Neurological: Negative Awake (sleeping and not disturbed)
Objective Data
Lab Data
Lab Results
03/13/24 04:48
03/12/24 04:17
Estimated Creat Clear 18 ml/min 03/12/24 04:17
Lactic Acid Cancelled 03/05/24 23:00
Total Bilirubin 0.4 mg/dl (0.2-1.3) 03/10/24 10:12
AST 26 U/L (17-59) 03/10/24 10:12
ALT 13 U/L (0-50) 03/10/24 10:12
Alkaline Phosphatase 109 U/L (38-126) 03/10/24 10:12
Most recent labs reviewed.
Micro Results:
03/08/24 18:11 Anaerobic Culture - Final
Hand - Left NO ANAEROBES ISOLATED
03/08/24 18:11 Wound Culture - Final
Hand - Left Staph aureus MRSA
Gram Stain - Final
03/07/24 08:08 Blood Culture - Final
Blood/Venous No Growth - Final Report
03/06/24 19:50 Blood Culture - Final
Blood/Venous No Growth - Final Report
03/06/24 16:58 Blood Culture - Final
Blood/Venous No Growth - Final Report
03/06/24 16:11 Blood Culture - Final
Blood/Venous No Growth - Final Report
03/05/24 18:49 Blood Culture - Final
Blood/Venous Staph aureus MRSA
Gram Stain - Final
03/05/24 18:49 Blood Culture - Final
Blood/Venous Staph aureus MRSA
Gram Stain - Final
03/05/24 18:50 Influenza Types A & B ([facility]) - Final
Nasal Swab Negative for Influenza A & B, NAAT
Negative results must be combined with clinical observations
and patient history.
Nucleic Acid Amplification test (NAAT)performed on the
[employer] platform.
Care Review
Plan reviewed with: Physician (Dr Amrita cloud)
--- NOTE | 2024-03-13 11:12 | CM ---
Addendum entered by Eduarda Miles RN 03/13/24 16:38:
CM spoke with the patient and his spouse at the bedside. Provided the spouse with the list of referrals and responses from [facility]. Patient's spouse will need to follow-up with the [facility] for further placement options. Video language line
used during all communications.
Addendum entered by Eduarda Miles RN 03/13/24 15:39:
Patient not wanting to return to facility. Spoke with patient and spouse at the bedside using video language line. 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 The patient
resided in the [facility]. Add'l referrals sent on behalf of [employer] from [facility] call regarding auth - no skilled need noted. Going to medical corps officer for review.
Addendum entered by Eduarda Miles RN 03/13/24 12:48:
Clinicals faxed to [employer] ([phone]) Ref# [id number].
Original Note:
Reviewed the chart notes. IMM placed on chart. Patient accepted back to [facility]. Auth needs to be attempted. CM continues to be available to patient/family and is monitoring medical plan for needs at discharge.
Plan: Discharge back to [facility]
Call report to: [phone], ext [phone]
Fax report to: [phone]
Medical necessity and transport forms on chart.
[2024-03-13 11:25] VITALS: BP 194/58
[2024-03-13 11:30] LABS: Glucose - Point of Care 129 mg/dl (70-99)
--- NOTE | 2024-03-13 11:34 | W.DS.TRANS ---
DC Summary - Global Security [employer]
-
Discharge Instructions:
Discharge Diagnosis/Procedures Sepsis, tenosynovitis of the right middle finger
, MRSA bacteremia, anemia, end-stage renal
disease, chronic hypotension, diabetes,
peripheral artery disease with history of right
BKA, hyperlipidemia, hypertension, GERD, history
of cardiac arrest with tracheostomy, sleep
apnea, history of DVT, hypothyroidism, anxiety
and depression, history of stroke, obesity,
chronic constipation
Diet Restrict fluids to 48 oz,2 Gram Sodium,Diabetic,
Carb Controlled
Activity With assistance,As tolerated
Driving Restrictions No driving
Other Services PT,OT
Instructions:
Stand-Alone Forms:
Changes to Home Medications: Yes
Discharge Medications:
DC Medications w/original date entered in [employer]
acetaminophen 500 mg tablet 500 mg PO Q6HPRN PRN mild pain/headaches 07/22/23
apixaban 2.5 mg tablet 2.5 mg PO BID Blood Clot Prevention/Tx 07/22/23
ascorbic acid (vitamin C) 250 mg tablet (Vitamin C) 250 mg PO DAILY Supplement 07/22/23
aspirin 81 mg chewable tablet 81 mg PO DAILY Blood Clot Prevention/Tx 07/22/23
atorvastatin 40 mg tablet 60 mg PO QPM High Cholesterol 07/22/23
bisacodyl 10 mg rectal suppository (Dulcolax (bisacodyl)) 10 mg HI DAILYPRN PRN constipation 07/22/23
carvedilol 3.125 mg tablet 3.125 mg PO BID Heart Disease/Condition 07/22/23
chlorhexidine gluconate 0.12 % mouthwash (Peridex) 15 ml mucous membrane BID Infection 07/22/23
diphenhydramine HCl 25 mg capsule 25 mg PO Q8HPRN PRN allergies 07/22/23
docusate sodium 100 mg capsule 100 mg PO BID Constipation 07/22/23
hydroxyzine HCl 25 mg tablet 25 mg PO [id number] PRN itching 07/22/23
icosapent ethyl 1 gram capsule (Vascepa) 2 g PO BID Heart Disease/Condition 07/22/23
insulin glargine 100 unit/mL (3 mL) subcutaneous pen (Lantus Solostar U-100 Insulin) 21 unit SC HS Diabetes 07/22/23
levothyroxine 75 mcg tablet 75 mcg PO DAILY Thyroid 07/22/23
lidocaine 5 % topical cream 1 applic topical Q8HPRN PRN AVF site 07/22/23
melatonin 5 mg tablet 5 mg PO HS Sleep 07/22/23
pantoprazole 40 mg tablet,delayed release 40 mg PO DAILY Gastrointestinal Issue 07/22/23
sorbitol 70 % solution 30 ml PO DAILYPRN PRN if no BM x 3 days 07/22/23
vitamin B complex and vitamin C no.20-folic acid 1 mg capsule (Renal Caps) 1 cap PO QPM Supplement 07/22/23
polyethylene glycol 3350 17 gram oral powder packet (Miralax) 17 g PO DAILY constipation 09/21/23
acetaminophen 325 mg tablet 650 mg PO Q6HPRN PRN mild pain/temp>100.4 11/02/23
bupropion HCl 100 mg tablet,12 hr sustained-release (Wellbutrin SR) 100 mg PO Q48H Mental Health/Anxiety 03/04/24
dextran 70-hypromellose eye drops in a dropperette (Artificial Tears (PF) drops in a dropperette) 1 drp BOTH EYES Q8HPRN PRN dry eyes 03/04/24
ferrous sulfate 325 mg (65 mg iron) tablet 325 mg PO DAILY Supplement 03/04/24
fluoxetine 10 mg capsule 10 mg PO DAILY Mental Health/Anxiety 03/04/24
fluoxetine 40 mg capsule 40 mg PO DAILY Mental Health/Anxiety 03/04/24
guaifenesin 100 mg/5 mL oral syrup 200 mg PO Q4H PRN congestion 03/04/24
insulin aspart U-100 100 unit/mL subcutaneous solution (Novolog U-100 Insulin aspart) 0 sliding scale dose SC DIRECTED Diabetes 03/04/24
latanoprost 0.005 % eye drops 1 drp LEFT EYE HS Eye Condition 03/04/24
hydrocodone 5 mg-acetaminophen 325 mg tablet 1 tab PO Q4HPRN PRN moderate/severe pain #10 tabs 03/12/24
lorazepam 0.5 mg tablet 0.5 mg PO BID #4 tabs 03/12/24
midodrine 5 mg tablet 2.5 mg (1/2 x 5 mg) PO Q6HPRN PRN sbp<90 #0 tabs 03/12/24
sennosides 8.6 mg tablet (Senna Laxative) 17.2 mg (2 x 8.6 mg) PO BID Constipation #0 tabs 03/12/24
vancomycin 1 gram/200 mL in 0.9 % sod. chloride intravenous piggyback 1 g (200 mL) IV HD-[id number] Infection #0 mL 03/12/24
calcitriol 0.25 mcg capsule 0.25 mcg PO DAILY Kidney Disease #0 caps 03/13/24
Home Medication Changes
New
Calcitriol, vancomycin, Senokot, Vicodin
Pending Results: No
[2024-03-13] MEDS: ROCALTROL 0.25 MCG PO (11:46)
--- NOTE | 2024-03-13 12:06 | W.PN.NEPH.PH ---
Today's Communication / Plan
-
dc
Assessment/Plan
-
Assessment:
Sepsis (right third finger source?)
Syncopal episode
ESRD on HD MWF
T2DM
PAD s/p R BKA
DLD
HTN
GERD
Plan:
plan for HD Tuesday per usual MWF schedule
Vancomycin for 6 weeks tentatively
for dc
-
-
Date of Service: March 13, 2024
CC / HPI / ROS
-
Chief Complaint:
End-stage renal disease
History of Present Illness:
ESRD Tuesday
hgb stable
tolerated HD yesterday
Hemodynamically labile on midodrine support
Remains on abx for finger osteomyelitis
Review of Systems:
no chest pain or sob
no fevers
Labs
-
Labs:
WBC 8.6 10^3/uL (4.8-10.8) 03/13/24 04:48
RBC 2.89 10^6/uL (4.70-6.10) L 03/13/24 04:48
Hgb 8.7 g/dL (13.0-18.0) L 03/13/24 04:48
Hct 27.1 % (39.0-52.0) L 03/13/24 04:48
Plt Count 304 10^3/uL (130-400) 03/13/24 04:48
Sodium 134 mmol/L (135-145) L 03/12/24 04:17
Potassium 4.0 mmol/L (3.5-5.1) 03/12/24 04:17
Chloride 96 mmol/L (98-107) L 03/12/24 04:17
Carbon Dioxide 25 mmol/L (22-30) 03/12/24 04:17
BUN 45 mg/dl (9-20) H 03/12/24 04:17
Creatinine 6.5 mg/dL (0.7-1.3) H* 03/12/24 04:17
eGFR 9.40 03/12/24 04:17
Glucose 168 mg/dl (70-99) H 03/12/24 04:17
Calcium 6.7 mg/dl (8.4-10.2) L* 03/12/24 04:17
Phosphorus 5.5 mg/dl (2.5-4.5) H 03/12/24 04:17
Albumin 2.8 g/dl (3.5-5.0) L 03/12/24 04:17
Physical Exam
-
Vital Signs:
Vital Signs
Temp Pulse Resp BP Pulse Ox
98.4 F 72 18 151/63 94
03/13/24 07:30 03/13/24 07:30 03/13/24 07:30 03/13/24 07:30 03/13/24 07:30
Cardiovascular:: Regular rate and rhythm
Respiratory:: Bilateral: Coarse
Lung Excursion:: Normal
Abdomen:: Nontender and Soft
Bowel Sounds:: Normal
Extremity Edema:: None: Bilateral:
[2024-03-13] MEDS: NORCO 5/325 1 TABLET PO (13:36)
[2024-03-13 13:40] VITALS: BP 162/90
--- NOTE | 2024-03-13 14:10 | W.PN.UPDATE ---
Update Note
Progress Note Update
UE arterial studies reviewed.
IMPRESSION:
1. Right wrist brachial index measures 0.85, digital brachial index measures 0.48.
2. Monophasic waveforms throughout the arteries of the right upper extremity are suggestive of
central arterial stenosis or occlusion.
3. Severe flattening of the digital PPG waveform of the second digit and moderate flattening of the
fifth digit waveform, with normal waveform of the third digit. Findings are suggestive of small
vessel disease.
Will continue course of ABX, local wound care and evaluate wound healing as outpatient.
Please have patient followup with me or his local vascular surgeon (previous dialysis access surgeries done elsewhere)
Iraj Alcala III, MD
[facility] Vascular Surgery
[phone] ([phone])
[2024-03-13 15:15] VITALS: BP 178/94
--- NOTE | 2024-03-13 15:22 | W.PN.UPDATE ---
Addendum entered and electronically signed by Celia Crowe MD 03/13/24 16:46:
Discharge to [facility] pt agreeable
Dictation- [id number]
Original Note:
Update Note
Progress Note Update
Nurses reported that patient does not want to go back to [facility] and wants to sign out AGAINST MEDICAL ADVICE. Spoke to case management with patient's tracheostomy, dialysis no other places as practically possible for the patient to go. He is
from [place] and had to come all the way here because of that reason.
Spoke to patient's daughter who has worked as a [employer]OTE[employer]ICATION SCIENTIST and aware of what is going on. She states that [facility] has a few good nurses but a lot of nurses were not doing their job right. They have made complaints. But even with that she feels that
he should go back there. In her words 'he is on dialysis, he is overweight, he has a tracheostomy, all this makes it difficult for a facility to accept him. She states that is her stepmom. Patient's cannot take care of him at home. She
also feels that if he goes home he will and it 'will be on her'. She will talk to both the patient and patient's and will get back to us (Will call Filomena).
I discussed about my concern about right hand not getting good care, could lead up to infection, limb loss, deconditioning, patient may become completely bedridden if does not get out of bed.. Daughter realizes all this.
She says she is the one to peter medical decisions for pt and not his . (Unclear to me if pt has a POA signed)
[2024-03-13] MEDS: BENADRYL 25 MG IV (16:56)
--- NOTE | 2024-03-13 16:57 | PTCARENOTE ---
Rn. Elver-called to [facility] and spoke with Clau the nursing open pit quarry supervisor. She said she would accept patient with transport at 2200.
[2024-03-13 17:39] LABS: Glucose - Point of Care 190 mg/dl (70-99)
[2024-03-13] MEDS: LIPITOR 60 MG PO (18:23)
[2024-03-13] MEDS: NEPHROCAP 1 CAPSULE PO (18:23)
[2024-03-13] MEDS: NOVOLOG FLEXPEN-LOW RESISTANCE 1 UNITS SC (18:51)
[2024-03-13 19:30] VITALS: BP 108/86
[2024-03-13] MEDS: XALATAN OPHTHALMIC SOLUTION 1 DROP LEFT EYE (21:07)
[2024-03-13] MEDS: LANTUS 0.209999999999999992 UNITS SC (21:23)
[2024-03-13 21:27] LABS: Glucose - Point of Care 123 mg/dl (70-99)
--- NOTE | 2024-03-13 22:09 | VATNOTE ---
LATE ENTRY-R FEMORAL TLC REMOVED PER PROTOCOL AND MD ORDER IN ANTICIPATION OF D/C AT 2200.BOTH SUTURES REMOVED AND SITE APPEARS WNL. NO BLEEDING NOTED.STERILE VASELINE GAUZE AND 4X4 DRSG WITH TSM APPLIED. MANUAL PRESSURE APPLIED X5 MINS. PCN AWARE
OF INTERVENTION AND OUTCOME.
[2024-03-13] MEDS: MELATONIN PO (22:11)
--- NOTE | 2024-03-15 08:25 | CM ---
Received voice message from [facility] retail support specialist with [facility] regarding requested auth. Denied. Niurka Project Buyer at [facility] informed.
== END 2024-03-13 22:26 | DRG 853 ==
LOC: 2 NORTH 21:16
PROVIDERS: Specialist; Student in an Organized Health Care Education/Training Program; ADMITTING PHYSICIAN Hospitalist; ATTENDING PHYSICIAN Hospitalist; CONSULT PHYSICIAN Internal Medicine Cardiovascular Disease; CONSULT PHYSICIAN Internal Medicine Infectious Disease; CONSULT PHYSICIAN Orthopaedic Surgery; CONSULT PHYSICIAN Student in an Organized Health Care Education/Training Program; CONSULT PHYSICIAN Surgery Vascular Surgery; EMERGENCY PHYSICIAN Emergency Medicine; FAMILY PHYSICIAN Internal Medicine
PROC: 5A1D70Z Performance of Urinary Filtration, Intermittent, Less than 6 Hours Per Day (ICD-10-PCS; 2024-03-07)
PROC: 30233N1 Transfusion of Nonautologous Red Blood Cells into Peripheral Vein, Percutaneous Approach (ICD-10-PCS; 2024-03-07)
PROC: 0X6Q0Z0 Detachment at Right Middle Finger, Complete, Open Approach (ICD-10-PCS; 2024-03-08)
DX: A41.02 Sepsis due to Methicillin resistant Staphylococcus aureus (principal); N18.6 End stage renal disease; R57.8 Other shock; M86.141 Other acute osteomyelitis, right hand; E11.52 Type 2 diabetes mellitus with diabetic peripheral angiopathy with gangrene; I96 Gangrene, not elsewhere classified; Z68.41 Body mass index [BMI] 40.0-44.9, adult; J96.11 Chronic respiratory failure with hypoxia; D62 Acute posthemorrhagic anemia; I12.0 Hypertensive chronic kidney disease with stage 5 chronic kidney disease or end stage renal disease; L03.011 Cellulitis of right finger; E11.22 Type 2 diabetes mellitus with diabetic chronic kidney disease; E66.9 Obesity, unspecified; G47.33 Obstructive sleep apnea (adult) (pediatric); E03.9 Hypothyroidism, unspecified; Z79.4 Long term (current) use of insulin; Z79.82 Long term (current) use of aspirin; Z93.0 Tracheostomy status; Z89.511 Acquired absence of right leg below knee; Z99.2 Dependence on renal dialysis; Z86.718 Personal history of other venous thrombosis and embolism
CPT/HCPCS: 88305; 88311; 36556; 70450; 71046; 72125; 73120; 73201; 74018; 76937; 80048; 80051; 80053; 80202; 82040; 82306; 82607; 82728; 82962; 83036; 83540; 83550; 83605; 83735; 84100; 84484; 85018; 85025; 85027; 86850; 86900; 86901; 86920; 87040; 87070; 87075; 87147; 87149; 87186; 87205; 87502; 87811; 93005; 93306; 93312; 93320; 93325; 93923; 93930; 93990; 96360; 97163; 97167; 97530; 99291; C1751; G0257; J2916; P9016; P9047; Q5106; Q9950; Q9967